=== PATIENT | female | born 1980 | race African-American/Black ===

== ENCOUNTER 2018-04-29 08:57 | Emergency (ER) | payer MEDICAID ==
[~2018-04-29] VITALS: Ht 167.6 cm; Wt 90.7 kg
--- NOTE | 2018-04-29 09:22 | Emergency Room Report ---
History of Present Illness General Chief Complaint: Abdominal Pain Source: Patient Present Illness HPI Patient presents with vomiting and epigastric pain. This began last night. She is vomiting up bile at this time. She also has diarrhea. She last moved her bowels this morning. It was somewhat dark in color but not black. She has a history of GERD. She's not taking medication at home (she tried Prilosec but vomited this). The pain is 10/10 and epigastric radiates somewhat into her chest. She denies any fevers or chills. She feels weak at this time. Pain rated at 10/10. Her last period was in August. She has an implant. No headache, rashes, joint pain - however, she takes advil daily. Never with GI specialist - afraid to go. H/O HTN. 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 Last Menstrual Period: August 2017 Now: No - on control Reviewed Nursing Documentation: PMH: Agreed; PSxH: Agreed Nursing Documentation-PMH Past Medical History: No History, Except For Hx Hypertension: Yes Hx Gastrointestinal Problems: Yes - GERD Review of Systems All Other Systems: negative except mentioned in HPI Physical Exam Vital Signs Date Time Temp Pulse Resp B/P (MAP) Pulse Ox O2 Delivery O2 Flow Rate FiO2 04/29/18 09:01 97.9 60 18 175/98 100 Room Air 97.9 Sp02 EP Interpretation: reviewed, normal General Appearance: well appearing, GCS 15, mild distress Head: normocephalic Eyes: bilateral eye normal inspection, bilateral eye PERRL ENT: moist mucus membranes, other - vomit is yellow bile Neck: supple Respiratory: lungs clear, normal breath sounds Cardiovascular #1: regular rate, rhythm Cardiovascular #2: 2+ radial (R) Gastrointestinal: normal inspection, normal bowel sounds, no mass, non- distended, no guarding, no rebound, tenderness - epigastric, overweight Genitourinary: no CVA tenderness Musculoskeletal: back normal, gait/station normal, normal range of motion Neurologic: alert, oriented x3, grossly normal Psychiatric: mood/affect normal Skin: normal inspection, warm/dry Medical Decision Making Diagnostic Impression: Primary Impression: Epigastric pain Additional Impression: Vomiting Qualified Codes: R11.2 - Nausea with vomiting, unspecified ER Course Patient presents with vomiting and diarrhea and epigastric pain. Differential includes gastritis, gastroenteritis, GERD, pancreatitis amongst others. Patient will be evaluated with labs. Based on exam and history, imaging is not indicated. Patient retreated with IV hydration, Reglan, Benadryl, Pepcid and morphine. Labs with normal WBC and H/H. CMP normal. Normal lipase. UA with ketones and some blood. Patient improved and tolerating oral intake. 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 Discussed need for GI evaluation. Patient stable for outpatient observation and treatment. Laboratory Tests Test 04/29/18 09:07 White Blood Count 7.5 K/UL (4.8-10.8) Red Blood Count 5.00 M/UL (4.20-5.40) Hemoglobin 13.7 G/DL (12.0-16.0) Hematocrit 43.3 % (37.0-47.0) Mean Corpuscular Volume 87 FL (80-99) Mean Corpuscular Hemoglobin 27.5 PG (27.0-31.0) Mean Corpuscular Hemoglobin Concent 31.8 G/DL (32.0-36.0) L Red Cell Distribution Width 12.0 % (11.6-14.8) Platelet Count 258 K/UL (150-450) Mean Platelet Volume 7.2 FL (6.5-10.1) Neutrophils (%) (Auto) 71.5 % (45.0-75.0) Lymphocytes (%) (Auto) 23.5 % (20.0-45.0) Monocytes (%) (Auto) 4.1 % (1.0-10.0) Eosinophils (%) (Auto) 0.1 % (0.0-3.0) Basophils (%) (Auto) 0.8 % (0.0-2.0) Urine Color Pale yellow Urine Appearance Clear Urine pH 6.5 (4.5-8.0) Urine Specific [place] 1.015 (1.005-1.035) Urine Protein Negative (NEGATIVE) Urine Glucose (UA) Negative (NEGATIVE) Urine Ketones 2+ (NEGATIVE) H Urine Occult Blood 4+ (NEGATIVE) H Urine Nitrite Negative (NEGATIVE) Urine Bilirubin Negative (NEGATIVE) Urine Urobilinogen Normal MG/DL (0.0-1.0) Urine Leukocyte Esterase Negative (NEGATIVE) Urine RBC 0-2 /HPF (0 - 2) Urine WBC 0-2 /HPF (0 - 2) Urine Squamous Epithelial Cells Moderate /LPF (NONE/OCC) H Urine Bacteria Few /HPF (NONE) Urine Yeast Few /HPF (NONE) H Urine HCG, Qualitative Negative (NEGATIVE) Sodium Level 137 MMOL/L (136-145) Potassium Level 4.4 MMOL/L (3.5-5.1) Chloride Level 106 MMOL/L (98-107) Carbon Dioxide Level 21 MMOL/L (21-32) Anion Gap 10 mmol/L (5-15) Blood Urea Nitrogen 11 mg/dL (7-18) Creatinine 0.7 MG/DL (0.55-1.30) Estimate Glomerular Filtration Rate > 60 mL/min (>60) Glucose Level 147 MG/DL (74-106) H Calcium Level 8.9 MG/DL (8.5-10.1) Total Bilirubin 0.4 MG/DL (0.2-1.0) Aspartate Amino Transferase (AST) 23 U/L (15-37) Alanine Aminotransferase (ALT) 24 U/L (12-78) Alkaline Phosphatase 85 U/L (46-116) Total Protein 8.5 G/DL (6.4-8.2) H Albumin 3.7 G/DL (3.4-5.0) Globulin 4.8 g/dL Albumin/Globulin Ratio 0.8 (1.0-2.7) L Lipase 111 U/L (73-393) Rhythm Strip Diag. Results EP Interpretation: yes Rhythm: NSR, no PVC's, no ectopy Last Vital Signs Date Time Temp Pulse Resp B/P (MAP) Pulse Ox O2 Delivery O2 Flow Rate FiO2 04/29/18 11:34 97.9 60 18 175/98 100 Room Air 208.2 Status: improved Disposition: HOME, SELF-CARE Condition: Improved Scripts Tramadol Hcl* (ULTRAM*) 50 Mg Tablet 50 MG ORAL Q6H PRN for For Pain, #8 TAB 0 Refills Prov: Reynaldo Saunders M.D. 04/29/18 Ondansetron Odt* (ZOFRAN ODT*) 4 Mg Tab.rapdis 4 MG BC EVERY 8 HOURS, #10 TAB 1 Refill Prov: Reynaldo Saunders M.D. 04/29/18 Reynaldo Saunders M.D. Apr 29, 2018 09:22
[2018-04-29 09:25] VITALS: BP 175/98
[2018-04-29] MEDS ORDERED: Metoclopramide 10mg/2ml Inj IVP ONE (09:30)
[2018-04-29] MEDS ORDERED: DiphenhydrAMINE 50mg/ml Inj IVP ONE (09:30)
[2018-04-29] MEDS ORDERED: Morphine Sulfate 4mg/ml Inj IVP ONE (09:30)
[2018-04-29 09:39] LABS: BASOPHILS % (AUTO) 0.8 % (0.0-2.0); EOSINOPHILS % (AUTO) 0.1 % (0.0-3.0); HEMATOCRIT 43.3 % (37.0-47.0); HEMOGLOBIN 13.7 G/DL (12.0-16.0); LYMPHOCYTES % (AUTO) 23.5 % (20.0-45.0); MEAN CORPUSCULAR VOLUME 87 FL (80-99); MONOCYTES % (AUTO) 4.1 % (1.0-10.0); NEUTROPHILS % (AUTO) 71.5 % (45.0-75.0); PLATELET COUNT 258 K/UL (150-450); WHITE BLOOD COUNT 7.5 K/UL (4.8-10.8)
[2018-04-29 09:43] LABS: ANION GAP 10 mmol/L (5-15); APPEARANCE,URINE CLEAR; BILIRUBIN, URINE NEGATIVE (NEGATIVE); BLOOD UREA NITROGEN 11 mg/dL (7-18); CALCIUM 8.9 MG/DL (8.5-10.1); CARBON DIOXIDE 21 MMOL/L (21-32); CHLORIDE 106 MMOL/L (98-107); COLOR,URINE PALE YELLOW; CREATININE 0.7 MG/DL (0.55-1.30); GLUCOSE, URINE (UA) NEGATIVE (NEGATIVE); KETONES,URINE 2+ (NEGATIVE); LEUKOCYTE ESTERASE ,URINE NEGATIVE (NEGATIVE); NITRITE,URINE NEGATIVE (NEGATIVE); PH,URINE 6.5 (4.5-8.0); POTASSIUM 4.4 MMOL/L (3.5-5.1); PROTEIN,URINE NEGATIVE (NEGATIVE); SODIUM 137 MMOL/L (136-145); UROBILINOGEN,URINE NORMAL MG/DL (0.0-1.0)
[2018-04-29 09:48] LABS: ALANINE AMINOTRANSFERASE 24 U/L (12-78); ALBUMIN 3.7 G/DL (3.4-5.0); ALBUMIN/GLOBULIN RATIO 0.8 (1.0-2.7); ALKALINE PHOSPHATASE 85 U/L (46-116); ASPARTATE AMINO TRANSFERASE 23 U/L (15-37); BILIRUBIN,TOTAL 0.4 MG/DL (0.2-1.0)
[2018-04-29] MEDS ORDERED: ONDANSETRON ODT4 MG BC (11:13)
[2018-04-29] MEDS ORDERED: TRAMADOL HCL50 MG ORAL (11:13)
[2018-04-29 11:34] VITALS: BP 175/98
== END 2018-04-29 11:38 | disposition home or self-care (01) ==
LOC: EMR 09:35
DX: R10.13 Epigastric pain (principal); R11.10 Vomiting, unspecified; R19.7 Diarrhea, unspecified; I10 Essential (primary) hypertension; K21.9 Gastro-esophageal reflux disease without esophagitis; Z88.0 Allergy status to penicillin
CPT/HCPCS: 36415; 80053; 81003; 81025; 83690; 85025; 87086; 96361; 96374; 96375; 99284; J1200; J2270; J2405; J2765; S0028

== ENCOUNTER 2018-05-02 16:57 | Inpatient (IN) | payer MEDICAID ==
[~2018-05-02] VITALS: Ht 167.6 cm; Wt 90.7 kg
[~2018-05-02 16:57] MED LIST: ONDANSETRON ODT4 MG BC; TRAMADOL HCL50 MG ORAL
[2018-05-02 17:29] VITALS: BP 185/91
[2018-05-02] MEDS ORDERED: LORazepam Inj 2mg/ml 1ml IV ONE (17:30)
[2018-05-02] MEDS ORDERED: Morphine Sulfate 4mg/ml Inj IVP ONE ×2 (17:30→19:15)
[2018-05-02] MEDS ORDERED: REGLAN5 MG ORAL (18:20)
[2018-05-02] MEDS ORDERED: OMEPRAZOLE20 M3 ORAL (18:23)
[2018-05-02] MEDS ORDERED: DICYCLOMINE HCL10 MG PO (18:24)
[2018-05-02 18:25] LABS: BASOPHILS % (AUTO) 1.1 % (0.0-2.0); EOSINOPHILS % (AUTO) 0.1 % (0.0-3.0); HEMATOCRIT 35.5 % (37.0-47.0); HEMOGLOBIN 11.7 G/DL (12.0-16.0); LYMPHOCYTES % (AUTO) 28.7 % (20.0-45.0); MEAN CORPUSCULAR VOLUME 85 FL (80-99); NEUTROPHILS % (AUTO) 66.1 % (45.0-75.0); PLATELET COUNT 247 K/UL (150-450); RED BLOOD COUNT 4.19 M/UL (4.20-5.40); RED CELL DISTRIBUTION WIDTH 11.3 % (11.6-14.8); WHITE BLOOD COUNT 7.3 K/UL (4.8-10.8)
[2018-05-02] MEDS ORDERED: ARTHRITIS PAI42.5 GM TP (18:27)
[2018-05-02 18:37] LABS: ANION GAP 15 mmol/L (5-15); BLOOD UREA NITROGEN 6 mg/dL (7-18); CALCIUM 9.1 MG/DL (8.5-10.1); CARBON DIOXIDE 21 MMOL/L (21-32); CHLORIDE 103 MMOL/L (98-107); CREATININE 0.8 MG/DL (0.55-1.30); POTASSIUM 3.9 MMOL/L (3.5-5.1); SODIUM 139 MMOL/L (136-145)
[2018-05-02 18:44] LABS: ALANINE AMINOTRANSFERASE 28 U/L (12-78); ALBUMIN 3.8 G/DL (3.4-5.0); ALBUMIN/GLOBULIN RATIO 0.8 (1.0-2.7); ALKALINE PHOSPHATASE 73 U/L (46-116); ASPARTATE AMINO TRANSFERASE 24 U/L (15-37); BILIRUBIN,TOTAL 0.5 MG/DL (0.2-1.0)
[2018-05-02] MEDS ORDERED: DiphenhydrAMINE 50mg/ml Inj IVP ONE (19:15)
[2018-05-02] MEDS ORDERED: Metoclopramide 10mg/2ml Inj IVP ONE (19:15)
--- NOTE | 2018-05-02 19:21 | Emergency Room Report ---
History of Present Illness General Chief Complaint: Abdominal Pain Source: Patient Present Illness HPI Patient presents with complaints of diffuse abdominal pain cramping Persistent nausea vomiting patient denies any fevers reports that she has had this problem for over a year More recently she has had increased problems patient reports that she was told that she needed to see a GI specialty however she does not want to have upper endoscopy or lower colonoscopies Denies any dysuria frequency denies any diarrhea Pain is 10 out of 10 diffuse cramping in nature There was some discussion regarding possible marijuana use and the cyclical vomiting Allergies: Coded Allergies: PENICILLINS (Verified Allergy, Unknown, 04/29/18) Patient History Past Medical History: see triage record Pertinent Family History: none Last Menstrual Period: nov Now: No Reviewed Nursing Documentation: PMH: Agreed; PSxH: Agreed Nursing Documentation-PMH Past Medical History: No History, Except For Hx Hypertension: Yes Hx Gastrointestinal Problems: Yes - GERD Review of Systems All Other Systems: negative except mentioned in HPI Physical Exam Vital Signs Date Time Temp Pulse Resp B/P (MAP) Pulse Ox O2 Delivery O2 Flow Rate FiO2 05/02/18 17:15 98.7 72 18 185/91 98 Room Air 98.8 Sp02 EP Interpretation: reviewed, normal General Appearance: mild distress - In acute pain Head: normocephalic, atraumatic Eyes: bilateral eye PERRL, bilateral eye EOMI ENT: dry mucus membranes Neck: full range of motion, supple Respiratory: lungs clear, normal breath sounds Cardiovascular #1: regular rate, rhythm, no edema Gastrointestinal: other - Patient is uncomfortable diffusely soft abdomen is palpated, some hyperactive bowel sounds are also noted Genitourinary: no CVA tenderness Musculoskeletal: normal inspection, back normal Neurologic: alert, oriented x3, responsive Skin: normal color, no rash Lymphatic: no adenopathy Medical Decision Making Diagnostic Impression: Primary Impression: Intractable abdominal migraine Additional Impression: Vomiting ER Course With the history exam and presentation, multiple differentials considered, including but not limited to appendicitis, gastritis, cholecystitis, diverticulitis Given the patient's repeat presentation The failed outpatient attempts patient had CT imaging obtained which did not show any acute pathology patient still requiring repeat medications and at this time is admitted for further care Labs Test 05/02/18 17:20 05/02/18 17:50 Urine Opiates Screen Negative (NEGATIVE) Urine Barbiturates Screen Negative (NEGATIVE) Phencyclidine (PCP) Screen Negative (NEGATIVE) Urine Amphetamines Screen Negative (NEGATIVE) Urine Benzodiazepines Screen Negative (NEGATIVE) Urine Cocaine Screen Negative (NEGATIVE) Urine Marijuana (THC) Screen Positive (NEGATIVE) White Blood Count 7.3 K/UL (4.8-10.8) Red Blood Count 4.19 M/UL (4.20-5.40) Hemoglobin 11.7 G/DL (12.0-16.0) Hematocrit 35.5 % (37.0-47.0) Mean Corpuscular Volume 85 FL (80-99) Mean Corpuscular Hemoglobin 28.0 PG (27.0-31.0) Mean Corpuscular Hemoglobin Concent 33.1 G/DL (32.0-36.0) Red Cell Distribution Width 11.3 % (11.6-14.8) Platelet Count 247 K/UL (150-450) Mean Platelet Volume 7.7 FL (6.5-10.1) Neutrophils (%) (Auto) 66.1 % (45.0-75.0) Lymphocytes (%) (Auto) 28.7 % (20.0-45.0) Monocytes (%) (Auto) 4.0 % (1.0-10.0) Eosinophils (%) (Auto) 0.1 % (0.0-3.0) Basophils (%) (Auto) 1.1 % (0.0-2.0) Sodium Level 139 MMOL/L (136-145) Potassium Level 3.9 MMOL/L (3.5-5.1) Chloride Level 103 MMOL/L (98-107) Carbon Dioxide Level 21 MMOL/L (21-32) Anion Gap 15 mmol/L (5-15) Blood Urea Nitrogen 6 mg/dL (7-18) Creatinine 0.8 MG/DL (0.55-1.30) Estimat Glomerular Filtration Rate > 60 mL/min (>60) Glucose Level 111 MG/DL (74-106) Calcium Level 9.1 MG/DL (8.5-10.1) Total Bilirubin 0.5 MG/DL (0.2-1.0) Aspartate Amino Transf (AST/SGOT) 24 U/L (15-37) Alanine Aminotransferase (ALT/SGPT) 28 U/L (12-78) Alkaline Phosphatase 73 U/L (46-116) Total Protein 8.3 G/DL (6.4-8.2) Albumin 3.8 G/DL (3.4-5.0) Globulin 4.5 g/dL Albumin/Globulin Ratio 0.8 (1.0-2.7) Lipase 89 U/L (73-393) CT/MRI/US Diagnostic Results CT/MRI/US Diagnostic Results : Impression CT abdomen pelvis: No obvious acute disease Last Vital Signs Date Time Temp Pulse Resp B/P (MAP) Pulse Ox O2 Delivery O2 Flow Rate FiO2 05/02/18 18:19 98.8 05/02/18 17:29 78 18 185/91 98 Room Air Status: improved Disposition: ADMITTED INPATIENT Condition: Serious Referrals: NOT CHOSEN IPA/,REFERRING (PCP) Chetan Vizcarra DO May 02, 2018 19:21
[2018-05-02 19:40] VITALS: BP 155/81
[2018-05-02 20:00] VITALS: BP 170/97
[2018-05-02] MEDS ORDERED: Mylanta II UD 30ml ORAL PRN (20:45)
[2018-05-02] MEDS ORDERED: LORazepam Inj 2mg/ml 1ml IV PRN (20:45)
[2018-05-02] MEDS ORDERED: Miralax 17gm pkt ORAL PRN (20:45)
[2018-05-02] MEDS ORDERED: Promethazine HCl 25 MG in NS 55 ML IV PRN (20:45)
[2018-05-02] MEDS ORDERED: Morphine Sulfate 2mg/ml Inj IVP PRN (20:45)
[2018-05-02] MEDS ORDERED: Nitroglycerin Subl 0.4mg tab SL PRN (20:45)
[2018-05-02] MEDS ORDERED: Promethazine HCl 12.5 MG in NS 55 ML IV PRN (20:45)
[2018-05-02] MEDS ORDERED: Metoclopramide 10mg/2ml Inj IVP PRN (20:45)
[2018-05-02] MEDS: D5 1/2NS 1,000 ML IV SCH (21:49)
[2018-05-02] MEDS: Heparin 5000 units/ml inj SUBQ SCH (21:54)
[2018-05-02] MEDS ORDERED: NORMODYNE100 MG ORAL (22:32)
[2018-05-03] VITALS: BP 162/88
[2018-05-03 04:00] VITALS: BP 155/91
[2018-05-03 05:31] LABS: BASOPHILS % (AUTO) 0.9 % (0.0-2.0); EOSINOPHILS % (AUTO) 0.4 % (0.0-3.0); HEMATOCRIT 33.6 % (37.0-47.0); HEMOGLOBIN 11.2 G/DL (12.0-16.0); LYMPHOCYTES % (AUTO) 45.3 % (20.0-45.0); MEAN CORPUSCULAR VOLUME 85 FL (80-99); MONOCYTES % (AUTO) 6.4 % (1.0-10.0); NEUTROPHILS % (AUTO) 46.9 % (45.0-75.0); PLATELET COUNT 229 K/UL (150-450); RED BLOOD COUNT 3.97 M/UL (4.20-5.40); RED CELL DISTRIBUTION WIDTH 11.3 % (11.6-14.8); WHITE BLOOD COUNT 8.3 K/UL (4.8-10.8)
[2018-05-03 06:11] LABS: ALANINE AMINOTRANSFERASE 25 U/L (12-78); ALBUMIN 3.3 G/DL (3.4-5.0); ALBUMIN/GLOBULIN RATIO 0.8 (1.0-2.7); ALKALINE PHOSPHATASE 66 U/L (46-116); AMYLASE 33 U/L (25-115); ANION GAP 12 mmol/L (5-15); ASPARTATE AMINO TRANSFERASE 13 U/L (15-37); BILIRUBIN,TOTAL 0.4 MG/DL (0.2-1.0); BLOOD UREA NITROGEN 7 mg/dL (7-18); CALCIUM 8.3 MG/DL (8.5-10.1); CARBON DIOXIDE 24 MMOL/L (21-32); CHLORIDE 103 MMOL/L (98-107); CREATININE 0.9 MG/DL (0.55-1.30); SODIUM 138 MMOL/L (136-145)
[2018-05-03 08:00] VITALS: BP 138/89
[2018-05-03] MEDS: Heparin 5000 units/ml inj SUBQ SCH (08:26)
[2018-05-03] MEDS ORDERED: Pantoprazole Inj IV SCH (09:00)
--- NOTE | 2018-05-03 09:10 | Diagnostic Imaging Report ---
Indication: Pain, nausea, vomiting Technique: Noncontrast CT of the abdomen and pelvis utilizing automated exposure control. Axial, sagittal and coronal reformats presented. CT dose: Total DLP 941.15 mGycm; CTDI vol 19.07 mGy Comparison: None Findings: Please note that evaluation of the abdominal and pelvic viscera and vascular structures is limited without the use of intravenous and oral contrast. Within these limitations the following observations are made: Imaged lung bases without evidence of focal consolidation, pleural effusion or pneumothorax. Heart size within normal limits. No pericardial effusion. There is hypoattenuation of the blood pool relative to the intraventricular septum suggesting anemia. Liver is mildly enlarged with the right hepatic lobe measuring approximately 21 cm in craniocaudal length. Liver contour is smooth. Gallbladder is unremarkable. Spleen normal in size. Adrenal glands and pancreas grossly unremarkable. Kidneys are symmetric in size. No urinary tract stone or hydronephrosis bilaterally. Apparent mild thickening of the bladder wall most likely related to underdistention. Uterus and adnexa are grossly unremarkable. No free intraperitoneal air. There is trace fluid in the cul-de-sac which is likely physiologic. No bowel obstruction. No appreciable focal bowel wall thickening however exam limited by lack of contrast. Appendix not definitively identified. No focal inflammatory changes in the right lower quadrant. There is a small defect in the musculature of the right anterolateral lower abdominal wall (series 3 image #81) with a small associated herniation of fat. Question small incisional hernia. Abdominal aorta is normal in caliber. No significant atherosclerotic disease. Very mild degenerative change of the spine. No acute osseous abnormality appreciated. IMPRESSION: Limited exam without intravenous and oral contrast. Within these limitations: No definite evidence of acute abdominal pathology. * Hepatomegaly. * Trace fluid in the cul-de-sac likely physiologic. * Apparent mild thickening of the bladder wall most likely related to underdistention. Correlate with urinalysis to exclude the less likely possibility of a cystitis. * Findings suggestive of anemia. Correlate with CBC. Additional incidental findings as above. The CT scanner at [facility] is accredited by the [employer] and the scans are performed using protocols designed to limit radiation exposure to as low as reasonably achievable to attain images of sufficient resolution adequate for diagnostic evaluation.
[2018-05-03] MEDS: D5 1/2NS 1,000 ML IV SCH (10:04)
[2018-05-03] MEDS ORDERED: D5 1/2NS 1000ml IV ONE (10:18)
--- NOTE | 2018-05-03 11:03 | GI Initial Consult Note ---
History of Present Illness General Date patient seen: May 03, 2018 Time patient seen: 10:59 Reason for Hospitalization: Abdominal Pain Referring physician: MYNOR HUNTER Reason for Consultation: CYCLIC VOMITING Present Illness HPI Persistent nausea vomiting patient denies any fevers reports that she has had this problem for over a year More recently she has had increased problems patient reports that she was told that she needed to see a GI specialty however she does not want to have upper endoscopy or lower colonoscopies Denies any dysuria frequency denies any diarrhea Pain is 10 out of 10 diffuse cramping in nature There was some discussion regarding possible marijuana use and the cyclical vomiting GI consulted for persistent vomiting. Pt seen, awake A&Ox4 NAD with no active s/sx N/V/D. Last PO intake x 4 days. Has nausea, but no recent emesis. Epigastric pain, stated when she did vomiting had specs of blood. Patient is a chronic marijuana daily user for over 15+ years. Had multiple incidents where she felt the same. Denies any tobacco or drug use. No history of endoscopy / colonoscopy. Home Meds Active Scripts Tramadol Hcl* (ULTRAM*) 50 Mg Tablet, 50 MG ORAL Q6H PRN for For Pain, #8 TAB 0 Refills Prov:Reynaldo Saunders M.D. 04/29/18 Ondansetron Odt* (ZOFRAN ODT*) 4 Mg Tab.rapdis, 4 MG BC EVERY 8 HOURS, #10 TAB 1 Refill Prov:Reynaldo Saunders M.D. 04/29/18 Reported Medications Labetalol HCl (Labetalol HCl) 100 Mg Tablet, 100 MG ORAL EVERY 12 HOURS, TAB 05/02/18 Omeprazole (OMEPRAZOLE) 20 Mg Tablet.dr, 0 ORAL DAILY, TAB 05/02/18 Metoclopramide Hcl* (REGLAN*) 5 Mg Tablet, 0 ORAL EVERY 4-6 HOURS, TAB 05/02/18 Discontinued Reported Medications Capsaicin (ARTHRITIS PAIN RELIEF) 42.5 Gm Cream..g., 0 TP, GM 05/02/18 Dicyclomine Hcl* (DICYCLOMINE HCL*) 10 Mg Capsule, 0 PO QID, CAP 05/02/18 Med list reviewed/reconciled: Yes Allergies: Coded Allergies: PENICILLINS (Verified Allergy, Unknown, 04/29/18) Patient History History Provided By: Patient, Medical Record PMH Narrative Past Medical History: see triage record Pertinent Family History: none Last Menstrual Period: nov Now: No Reviewed Nursing Documentation: PMH: Agreed; PSxH: Agreed Nursing Documentation-PMH Past Medical History: No History, Except For Hx Hypertension: Yes Hx Gastrointestinal Problems: Yes - GERD Social History: Reports: drug use Review of Systems All Other Systems: negative except mentioned in HPI Physical Exam Vital Signs Date Time Temp Pulse Resp B/P (MAP) Pulse Ox O2 Delivery O2 Flow Rate FiO2 05/02/18 17:15 98.7 72 18 185/91 98 Room Air 98.8 Sp02 EP Interpretation: reviewed, normal Labs Laboratory Tests Test 05/02/18 17:20 05/02/18 17:50 05/03/18 04:50 Urine Opiates Screen Negative (NEGATIVE) Urine Barbiturates Screen Negative (NEGATIVE) Phencyclidine (PCP) Screen Negative (NEGATIVE) Urine Amphetamines Screen Negative (NEGATIVE) Urine Benzodiazepines Screen Negative (NEGATIVE) Urine Cocaine Screen Negative (NEGATIVE) Urine Marijuana (THC) Screen Positive (NEGATIVE) H White Blood Count 7.3 K/UL (4.8-10.8) 8.3 K/UL (4.8-10.8) Red Blood Count 4.19 M/UL (4.20-5.40) L 3.97 M/UL (4.20-5.40) L Hemoglobin 11.7 G/DL (12.0-16.0) L 11.2 G/DL (12.0-16.0) L Hematocrit 35.5 % (37.0-47.0) L 33.6 % (37.0-47.0) L Mean Corpuscular Volume 85 FL (80-99) 85 FL (80-99) Mean Corpuscular Hemoglobin 28.0 PG (27.0-31.0) 28.1 PG (27.0-31.0) Mean Corpuscular Hemoglobin Concent 33.1 G/DL (32.0-36.0) 33.2 G/DL (32.0-36.0) Red Cell Distribution Width 11.3 % (11.6-14.8) L 11.3 % (11.6-14.8) L Platelet Count 247 K/UL (150-450) 229 K/UL (150-450) Mean Platelet Volume 7.7 FL (6.5-10.1) 6.9 FL (6.5-10.1) Neutrophils (%) (Auto) 66.1 % (45.0-75.0) 46.9 % (45.0-75.0) Lymphocytes (%) (Auto) 28.7 % (20.0-45.0) 45.3 % (20.0-45.0) H Monocytes (%) (Auto) 4.0 % (1.0-10.0) 6.4 % (1.0-10.0) Eosinophils (%) (Auto) 0.1 % (0.0-3.0) 0.4 % (0.0-3.0) Basophils (%) (Auto) 1.1 % (0.0-2.0) 0.9 % (0.0-2.0) Sodium Level 139 MMOL/L (136-145) 138 MMOL/L (136-145) Potassium Level 3.9 MMOL/L (3.5-5.1) 3.0 MMOL/L (3.5-5.1) L Chloride Level 103 MMOL/L (98-107) 103 MMOL/L (98-107) Carbon Dioxide Level 21 MMOL/L (21-32) 24 MMOL/L (21-32) Anion Gap 15 mmol/L (5-15) 12 mmol/L (5-15) Blood Urea Nitrogen 6 mg/dL (7-18) L 7 mg/dL (7-18) Creatinine 0.8 MG/DL (0.55-1.30) 0.9 MG/DL (0.55-1.30) Estimat Glomerular Filtration Rate > 60 mL/min (>60) > 60 mL/min (>60) Glucose Level 111 MG/DL (74-106) H 107 MG/DL (74-106) H Calcium Level 9.1 MG/DL (8.5-10.1) 8.3 MG/DL (8.5-10.1) L Total Bilirubin 0.5 MG/DL (0.2-1.0) 0.4 MG/DL (0.2-1.0) Aspartate Amino Transf (AST/SGOT) 24 U/L (15-37) 13 U/L (15-37) L Alanine Aminotransferase (ALT/SGPT) 28 U/L (12-78) 25 U/L (12-78) Alkaline Phosphatase 73 U/L (46-116) 66 U/L (46-116) Total Protein 8.3 G/DL (6.4-8.2) H 7.2 G/DL (6.4-8.2) Albumin 3.8 G/DL (3.4-5.0) 3.3 G/DL (3.4-5.0) L Globulin 4.5 g/dL 3.9 g/dL Albumin/Globulin Ratio 0.8 (1.0-2.7) L 0.8 (1.0-2.7) L Lipase 89 U/L (73-393) Activated Partial Thromboplast Time 26 SEC (23-33) Amylase Level 33 U/L (25-115) General Appearance: well appearing, no apparent distress, alert, obese Head: normocephalic EENT: PERRL/EOMI, normal ENT inspection Neck: supple Respiratory: normal breath sounds, no respiratory distress Cardiovascular: normal rate Gastrointestinal: normal inspection, non tender, soft, normal bowel sounds, non -distended Rectal: deferred Genitourinary: no CVA tenderness Musculoskeletal: normal inspection, back normal Neurologic: normal inspection, alert, oriented x3, responsive Psychiatric: normal inspection, judgement/insight normal, memory normal Skin: normal inspection, normal color, no rash, warm/dry, palpation normal, well hydrated Lymphatic: normal inspection, no adenopathy Current Medications Current Medications Medications (Trade) Dose Ordered Sig/Sonia Route PRN Reason Start Time Stop Time Status Last Admin Dose Admin Acetaminophen (Tylenol) 650 mg Q4H PRN ORAL fever 05/02/18 20:45 06/01/18 20:44 Al Hydroxide/Mg Hydroxide (Mylanta II) 30 ml Q6H PRN ORAL dyspepsia 05/02/18 20:45 06/01/18 20:44 05/03/18 05:02 Clonidine HCl (Catapres Tab) 0.1 mg Q6H PRN ORAL For High Blood Pressure 05/02/18 22:45 06/01/18 22:44 05/03/18 01:07 Dextrose (Dextrose 50%) 25 ml STAT PRN IV Hypoglycemia 05/02/18 20:45 06/01/18 20:44 Dextrose (Dextrose 50%) 50 ml STAT PRN IV Hypoglycemia 05/02/18 21:00 06/01/18 20:59 Dextrose/Sodium Chloride 1,000 ml @ 75 mls/hr [id number] IV 05/02/18 20:44 06/01/18 20:43 05/02/18 21:49 Diphenhydramine HCl (Benadryl) 25 mg Q6H PRN ORAL Itching/Pruritis 05/02/18 20:45 06/01/18 20:44 Heparin Sodium (Porcine) (Heparin 5000 units/ml) 5,000 units EVERY 12 HOURS SUBQ 05/02/18 21:00 06/01/18 20:59 05/03/18 08:26 Labetalol HCl (Normodyne) 100 mg EVERY 12 HOURS ORAL 05/02/18 22:45 06/01/18 22:44 05/03/18 08:18 Lorazepam (Ativan 2mg/ml 1ml) 1 mg Q4H PRN IV agitation 05/02/18 20:45 05/09/18 20:44 Metoclopramide HCl (Reglan) 10 mg Q6H PRN IVP severe nausea 05/02/18 20:45 06/01/18 20:44 Morphine Sulfate (Morphine Sulfate) 2 mg Q4H PRN IVP severe Pain (Pain Scale 7-10) 05/02/18 20:45 05/09/18 20:44 Nitroglycerin (Ntg) 0.4 mg Q5M X 3 DOSES PRN SL Prn Chest Pain 05/02/18 20:45 06/01/18 20:44 Ondansetron HCl (Zofran) 4 mg Q6H PRN IVP Nausea & Vomiting 05/02/18 20:45 06/01/18 20:44 05/03/18 08:16 Pantoprazole (Protonix) 40 mg DAILY IV 05/03/18 09:00 06/02/18 08:59 05/03/18 08:16 Polyethylene Glycol (Miralax) 17 gm HSPRN PRN ORAL Constipation 05/02/18 20:45 06/01/18 20:44 Potassium Chloride 100 ml @ 100 mls/hr Q1H IVPB 05/03/18 08:30 05/03/18 12:29 05/03/18 08:16 Promethazine HCl (Phenergan) 12.5 mg Q6H PRN IM refractory nausea and vomiting 05/02/18 22:15 06/01/18 22:14 Temazepam (Restoril) 15 mg HSPRN PRN ORAL Insomnia 05/02/18 20:45 05/09/18 20:44 GI: Plan Problems: (1) Cyclic vomiting syndrome (2) Intractable abdominal migraine (3) Epigastric pain (4) Vomiting Plan negative CT anemia symptomatic treatment advance to regular diet marijuana cessation education given, pt had acknowledged anemia work up ppi zofran prn fu labs will consider EGD if patient cannot tolerate lunch and has persistent vomiting. Discussed with Dr. Smith. Thank you for this patient referral, we will follow. The patient was seen and examined at bedside and all new and available data was reviewed in the patients chart. I agree with the above findings, impression and plan. (Patient seen earlier today. Signature stamp does not reflect patient encounter time.). - MD Paulina SolorzanoBanner Baywood Medical CenterSebas HORSE RIDING COACH OR INSTRUCTOR May 03, 2018 11:03
[2018-05-03 12:00] VITALS: BP 149/99
--- NOTE | 2018-05-03 13:05 | Consultation ---
History of Present Illness General Date patient seen: May 03, 2018 Chief Complaint: Abdominal Pain Referring physician: MYNOR HUNTER Reason for Consultation: CYCLIC VOMITING Present Illness HPI 37 year old female presented with persistent N/V after smoking pot. Pt has been smoking cannabis for a few years and this time she started having Nausea and vomiting. Allergies: Coded Allergies: PENICILLINS (Verified Allergy, Unknown, 04/29/18) Medication History Scheduled Labetalol HCl (Labetalol HCl), 100 MG ORAL EVERY 12 HOURS, (Reported) Metoclopramide Hcl* (Reglan*), 0 ORAL EVERY 4-6 HOURS, (Reported) Omeprazole (Omeprazole), 0 ORAL DAILY, (Reported) Ondansetron Odt* (Zofran Odt*), 4 MG BC EVERY 8 HOURS Scheduled PRN Tramadol Hcl* (Ultram*), 50 MG ORAL Q6H PRN for For Pain Discontinued Medications Capsaicin (Arthritis Pain Relief), 0 TP, (Reported) Discontinued Reason: Therapy completed Dicyclomine Hcl* (Dicyclomine Hcl*), 0 PO QID, (Reported) Discontinued Reason: Therapy completed Patient History Healthcare decision maker Resuscitation status Full Code Advanced Directive on File No Past Medical/Surgical History Past Medical/Surgical History: (1) Cyclic vomiting syndrome Review of Systems All Other Systems: negative except mentioned in HPI Physical Exam General Appearance: WD/WN, no apparent distress Lines, tubes and drains: peripheral HEENT: normocephalic, atraumatic Neck: non-tender, normal alignment Respiratory/Chest: chest wall non-tender, lungs clear Breasts: no masses Cardiovascular/Chest: normal peripheral pulses Abdomen: normal bowel sounds Genitourinary/Rectal: normal genital exam Extremities: normal range of motion Last 24 Hour Vital Signs Date Time Temp Pulse Resp B/P (MAP) Pulse Ox O2 Delivery O2 Flow Rate FiO2 05/03/18 12:00 97.2 63 21 149/99 (116) 95 97.2 05/03/18 09:00 Room Air 05/03/18 08:18 65 138/89 05/03/18 08:00 97.9 64 22 138/89 (105) 100 97.9 05/03/18 08:00 97.9 64 22 138/89 (105) 100 97.9 05/03/18 04:00 98.3 59 19 155/91 (112) 100 98.3 7/23/18 01:07 162/88 05/03/18 00:00 98.3 66 19 162/88 (112) 100 98.3 05/02/18 22:59 52 170/97 05/02/18 21:00 Room Air 05/02/18 20:00 97.8 52 19 170/97 (121) 99 97.8 05/02/18 19:40 98.8 61 18 155/81 97 Room Air 98.8 05/02/18 19:40 98.8 61 18 155/81 97 Room Air 209.8 05/02/18 19:26 98.8 05/02/18 18:19 98.8 05/02/18 17:49 98.8 05/02/18 17:29 98.8 78 18 185/91 98 Room Air 98.8 05/02/18 17:15 98.7 72 18 185/91 98 Room Air 98.8 Intake and Output 05/02/18 05/03/18 19:00 07:00 Intake Total 675 ml Output Total 0 ml Balance 0 ml 675 ml Intake IV Total 675 ml Output Urine Total 0 ml # Voids 2 Laboratory Tests Test 05/02/18 17:20 05/02/18 17:50 05/03/18 04:50 Urine Opiates Screen Negative (NEGATIVE) Urine Barbiturates Screen Negative (NEGATIVE) Phencyclidine (PCP) Screen Negative (NEGATIVE) Urine Amphetamines Screen Negative (NEGATIVE) Urine Benzodiazepines Screen Negative (NEGATIVE) Urine Cocaine Screen Negative (NEGATIVE) Urine Marijuana (THC) Screen Positive (NEGATIVE) H White Blood Count 7.3 K/UL (4.8-10.8) 8.3 K/UL (4.8-10.8) Red Blood Count 4.19 M/UL (4.20-5.40) L 3.97 M/UL (4.20-5.40) L Hemoglobin 11.7 G/DL (12.0-16.0) L 11.2 G/DL (12.0-16.0) L Hematocrit 35.5 % (37.0-47.0) L 33.6 % (37.0-47.0) L Mean Corpuscular Volume 85 FL (80-99) 85 FL (80-99) Mean Corpuscular Hemoglobin 28.0 PG (27.0-31.0) 28.1 PG (27.0-31.0) Mean Corpuscular Hemoglobin Concent 33.1 G/DL (32.0-36.0) 33.2 G/DL (32.0-36.0) Red Cell Distribution Width 11.3 % (11.6-14.8) L 11.3 % (11.6-14.8) L Platelet Count 247 K/UL (150-450) 229 K/UL (150-450) Mean Platelet Volume 7.7 FL (6.5-10.1) 6.9 FL (6.5-10.1) Neutrophils (%) (Auto) 66.1 % (45.0-75.0) 46.9 % (45.0-75.0) Lymphocytes (%) (Auto) 28.7 % (20.0-45.0) 45.3 % (20.0-45.0) H Monocytes (%) (Auto) 4.0 % (1.0-10.0) 6.4 % (1.0-10.0) Eosinophils (%) (Auto) 0.1 % (0.0-3.0) 0.4 % (0.0-3.0) Basophils (%) (Auto) 1.1 % (0.0-2.0) 0.9 % (0.0-2.0) Sodium Level 139 MMOL/L (136-145) 138 MMOL/L (136-145) Potassium Level 3.9 MMOL/L (3.5-5.1) 3.0 MMOL/L (3.5-5.1) L Chloride Level 103 MMOL/L (98-107) 103 MMOL/L (98-107) Carbon Dioxide Level 21 MMOL/L (21-32) 24 MMOL/L (21-32) Anion Gap 15 mmol/L (5-15) 12 mmol/L (5-15) Blood Urea Nitrogen 6 mg/dL (7-18) L 7 mg/dL (7-18) Creatinine 0.8 MG/DL (0.55-1.30) 0.9 MG/DL (0.55-1.30) Estimat Glomerular Filtration Rate > 60 mL/min (>60) > 60 mL/min (>60) Glucose Level 111 MG/DL (74-106) H 107 MG/DL (74-106) H Calcium Level 9.1 MG/DL (8.5-10.1) 8.3 MG/DL (8.5-10.1) L Total Bilirubin 0.5 MG/DL (0.2-1.0) 0.4 MG/DL (0.2-1.0) Aspartate Amino Transf (AST/SGOT) 24 U/L (15-37) 13 U/L (15-37) L Alanine Aminotransferase (ALT/SGPT) 28 U/L (12-78) 25 U/L (12-78) Alkaline Phosphatase 73 U/L (46-116) 66 U/L (46-116) Total Protein 8.3 G/DL (6.4-8.2) H 7.2 G/DL (6.4-8.2) Albumin 3.8 G/DL (3.4-5.0) 3.3 G/DL (3.4-5.0) L Globulin 4.5 g/dL 3.9 g/dL Albumin/Globulin Ratio 0.8 (1.0-2.7) L 0.8 (1.0-2.7) L Lipase 89 U/L (73-393) Activated Partial Thromboplast Time 26 SEC (23-33) Amylase Level 33 U/L (25-115) Height (Feet): 5 Height (Inches): 6.00 Weight (Pounds): 200 Medications Current Medications Medications (Trade) Dose Ordered Sig/Sonia Route PRN Reason Start Time Stop Time Status Last Admin Dose Admin Acetaminophen (Tylenol) 650 mg Q4H PRN ORAL fever 05/02/18 20:45 06/01/18 20:44 Al Hydroxide/Mg Hydroxide (Mylanta II) 30 ml Q6H PRN ORAL dyspepsia 05/02/18 20:45 06/01/18 20:44 05/03/18 05:02 Clonidine HCl (Catapres Tab) 0.1 mg Q6H PRN ORAL For High Blood Pressure 05/02/18 22:45 06/01/18 22:44 05/03/18 01:07 Dextrose (Dextrose 50%) 25 ml STAT PRN IV Hypoglycemia 05/02/18 20:45 06/01/18 20:44 Dextrose (Dextrose 50%) 50 ml STAT PRN IV Hypoglycemia 05/02/18 21:00 06/01/18 20:59 Dextrose/Sodium Chloride 1,000 ml @ 75 mls/hr [id number] IV 05/02/18 20:44 06/01/18 20:43 05/02/18 21:49 Diphenhydramine HCl (Benadryl) 25 mg Q6H PRN ORAL Itching/Pruritis 05/02/18 20:45 06/01/18 20:44 Heparin Sodium (Porcine) (Heparin 5000 units/ml) 5,000 units EVERY 12 HOURS SUBQ 05/02/18 21:00 06/01/18 20:59 05/03/18 08:26 Labetalol HCl (Normodyne) 100 mg EVERY 12 HOURS ORAL 05/02/18 22:45 06/01/18 22:44 05/03/18 08:18 Lorazepam (Ativan 2mg/ml 1ml) 1 mg Q4H PRN IV agitation 05/02/18 20:45 05/09/18 20:44 Metoclopramide HCl (Reglan) 10 mg Q6H PRN IVP severe nausea 05/02/18 20:45 06/01/18 20:44 Morphine Sulfate (Morphine Sulfate) 2 mg Q4H PRN IVP severe Pain (Pain Scale 7-10) 05/02/18 20:45 05/09/18 20:44 Nitroglycerin (Ntg) 0.4 mg Q5M X 3 DOSES PRN SL Prn Chest Pain 05/02/18 20:45 06/01/18 20:44 Ondansetron HCl (Zofran) 4 mg Q6H PRN IVP Nausea & Vomiting 05/02/18 20:45 06/01/18 20:44 05/03/18 08:16 Pantoprazole (Protonix) 40 mg DAILY IV 05/03/18 09:00 06/02/18 08:59 05/03/18 08:16 Polyethylene Glycol (Miralax) 17 gm HSPRN PRN ORAL Constipation 05/02/18 20:45 06/01/18 20:44 Promethazine HCl (Phenergan) 12.5 mg Q6H PRN IM refractory nausea and vomiting 05/02/18 22:15 06/01/18 22:14 Temazepam (Restoril) 15 mg HSPRN PRN ORAL Insomnia 05/02/18 20:45 05/09/18 20:44 Assessment/Plan Problem List: (1) Intractable nausea and vomiting ICD Codes: R11.2 - Nausea with vomiting, unspecified SNOMED: 298390099 Assessment/Plan symptomatic treatment iv fluids GI evaluation NPO Yuly Blackman MD May 03, 2018 13:05
--- NOTE | 2018-05-03 16:00 | Diagnostic Imaging Report ---
Indication: Abdominal pain Technique: US ABD Complete Comparison: CT of the abdomen and pelvis 05/02/2018 Findings: Imaged portions of the pancreatic head grossly unremarkable. The body and tail are not seen. Liver contour is smooth. Hepatic echogenicity is homogeneous. No focal hepatic mass lesion is appreciated sonographically. Liver is mildly enlarged with the right hepatic lobe measuring 19 cm in length. Portal vein is patent. Gallbladder is unremarkable without evidence of cholelithiasis, gallbladder sludge, gallbladder wall thickening or pericholecystic fluid. Sonographic Tsai sign reported as negative. No intrahepatic or extrahepatic biliary duct dilatation. The common bile duct measures 3- 4 mm in diameter. Kidneys are symmetric in size and demonstrate normal parenchymal echogenicity. There is no hydronephrosis or sonographically appreciable renal stone. Spleen is normal in size. Imaged portions of the abdominal aorta and IVC normal in caliber. There is no ascites. IMPRESSION: Mild hepatomegaly. Otherwise, unremarkable abdominal sonogram.
--- NOTE | 2018-05-03 22:00 | History and Physical Report ---
DATE OF ADMISSION: 05/02/2018 CONSULTANTS: 1. Deng Smith M.D. 2. Lori Johnson M.D. 3. Yuly Blackman M.D. CHIEF COMPLAINT: Intractable nausea and vomiting. BRIEF HISTORY: The patient is a 37-year-old female, who lives at home, yesterday after smoking pot, became very nauseated, vomiting, could not stop, came to [facility], diagnosed with the above, intractable nausea and vomiting, possible marijuana-induced, and admitted to medical floor for further treatment. Currently, feeling much better. No nausea anymore. Ate lunch okay, wants to go home. REVIEW OF SYSTEMS: No chest pain. Slight nausea and vomiting upon admission. No complaint otherwise. PAST MEDICAL HISTORY: Nothing. PAST SURGICAL HISTORY: D and C x2. Appendectomy. ALLERGIES: Penicillin. SOCIAL HISTORY: No smoking of cigarettes. No alcohol. Positive marijuana use. PHYSICAL EXAMINATION: GENERAL: Calm in bed, oriented x3, no acute distress. VITAL SIGNS: Temperature is 97 degrees, pulse 63, respirations 21, and blood pressure 149/99. CARDIOVASCULAR: No murmur. LUNGS: Distant and clear. ABDOMEN: Bowel sound positive. Nontender. Nondistended. EXTREMITIES: No cyanosis or edema. NEUROLOGIC: Cranial nerves II through XII are grossly intact. Deep tendon reflex 2+/4. Muscle strength 5/5. LABORATORY AND DIAGNOSTIC DATA: Hemoglobin 11.2, otherwise CBC is normal. BMP shows potassium 3.0, glucose 107, AST 13 and albumin 3.3, otherwise normal. PTT is 26. Urine toxicology positive for marijuana. MEDICATIONS: Protonix, Normodyne, Catapres, Phenergan, Tylenol, morphine, MiraLAX, Zofran, Benadryl, nitroglycerin, and Reglan. ASSESSMENT: 1. Intractable nausea and vomiting, possible marijuana-induced. 2. Anemia. 3. Elevated blood pressure. PLAN: 1. Blood pressure and pain control. 2. Antiemetics p.r.n. 3. We will discharge the patient shortly if cleared by all. 4. We will continue to follow the patient medically. Vikas Hamm D.O. DR: LEIDA JOB#: [id number] CC:
--- NOTE | 2018-05-04 10:34 | Discharge Summary ---
Discharge Summary Discharge Summary _ DATE OF ADMISSION: 05/02/2018 DATE OF DISCHARGE: 05/03/2018 REASON FOR ADMISSION: 37 years old female from home, presented after smoking pot with nausea, vomiting and abdominal pain. Upon evaluation blood pressure was elevated 185/91. Laboratory workup revealed evidence of mild anemia with hemoglobin 11.7 and hematocrit 35.5. No leukocytosis. Urine toxicology screen was positive for marijuana. Electrolytes , renal parameters , LFT and lipase were all stable. CT of the abdomen and pelvis revealed evidence of hepatomegaly, no other significant findings. Patient admitted with diagnoses of intractable nausea and vomiting, anemia, hypertension. CONSULTANTS: pulmonary Dr. Blackman GI specialist [facility] COURSE: Patient admitted to medical surgical floor. Patient started on the IV fluids. Patient initially kept nothing by mouth. Symptomatic treatment provided. Pain management was addressed, pain was controlled. DVT prophylaxis provided . GI evaluation was requested. GI specialist recommended symptomatic treatment. Antiemetics provided as needed. Diet was started with clear liquids and advanced to regular as tolerated. Patient was counseled on marijuana cessation. Anemia workup was ordered . Patient started on PPI. GI specialist stated to consider EGD only if patient would not be able to tolerate lunch and had persistent vomiting. However patient was able to tolerate diet . CT of the abdomen and pelvis and abdominal ultrasound were both unremarkable. CT of the abdomen and pelvis revealed hepatomegaly Abdominal ultrasound revealed mild hepatomegaly , otherwise unremarkable. Blood pressure was managed with beta rowena and remained stable. Patient was stable for discharge home Due to rapid and unexpected improvement in patient's condition, the patient was discharged in one day. FINAL DIAGNOSES: Cyclic vomiting syndrome Intractable abdominal migraine Intractable nausea with vomiting Elevated blood pressure Anemia DISCHARGE MEDICATIONS: See Medication Reconciliation list. DISCHARGE INSTRUCTIONS: Patient was discharged home. Follow up with primary care provider . I have been assigned to dictate discharge summary for this account. I was not involved in the patient's management. Eun Hernandez NP May 04, 2018 10:34
== END 2018-05-03 15:23 | disposition home or self-care (01) | DRG 54 ==
LOC: EMR 17:47 → EDBEDREQ 18:17 → 3E 18:33
DX: G43.A1 Cyclical vomiting, in migraine, intractable (principal); D64.9 Anemia, unspecified; K21.9 Gastro-esophageal reflux disease without esophagitis; T40.7X5A Adverse effect of cannabis (derivatives), initial encounter; Z88.0 Allergy status to penicillin; R03.0 Elevated blood-pressure reading, without diagnosis of hypertension
CPT/HCPCS: 36415; 74176; 76700; 80053; 80307; 82150; 83690; 85025; 85730; J2405; J2765; J8499

== ENCOUNTER 2018-05-07 09:57 | Emergency (ER) | payer MEDICAID ==
[~2018-05-07] VITALS: Ht 167.6 cm; Wt 90.7 kg
[~2018-05-07 09:57] MED LIST changes: +ARTHRITIS PAI42.5 GM TP; +DICYCLOMINE HCL10 MG PO; +NORMODYNE100 MG ORAL; +OMEPRAZOLE20 M3 ORAL; +REGLAN5 MG ORAL
--- NOTE | 2018-05-07 10:40 | Emergency Room Report ---
History of Present Illness General Chief Complaint: Nausea, Vomiting, and Diarrhea Source: Patient Present Illness HPI 37yo female with no medical problems, history of remote appendectomy and D&C, presents with nausea vomiting diarrhea cramping abdominal pain diffuse severe, started this morning, she reports she ate Oreos last night. The obvious triggers, but she was just discharged 4 days ago from the hospital for the same problem, and told it was secondary to marijuana use. She reports she does not smoke that much marijuana, and has not smoked recently. She denies urinary complaints, fevers, gynecologic complaints his abnormal vaginal discharge. Allergies: Coded Allergies: PENICILLINS (Verified Allergy, Unknown, 04/29/18) Patient History Past Medical History: see triage record Last Menstrual Period: 08/2017 Now: No - CONTROL Reviewed Nursing Documentation: PMH: Agreed; PSxH: Agreed Nursing Documentation-PMH Hx Hypertension: Yes Hx Cancer: No Hx Gastrointestinal Problems: Yes - GERD Hx Neurological Problems: No Review of Systems All Other Systems: negative except mentioned in HPI Physical Exam Vital Signs Date Time Temp Pulse Resp B/P (MAP) Pulse Ox O2 Delivery O2 Flow Rate FiO2 05/07/18 10:07 97.8 60 18 187/107 100 Room Air 97.9 Sp02 EP Interpretation: reviewed, normal General Appearance: alert, non-toxic, moderate distress - Writhing around in pain Head: normocephalic Eyes: bilateral eye normal inspection, bilateral eye PERRL, bilateral eye EOMI ENT: normal ENT inspection, hearing grossly normal, normal pharynx, no angioedema, normal voice, moist mucus membranes Neck: normal inspection, full range of motion, supple, supple/symm/no masses Respiratory: chest non-tender, lungs clear, normal breath sounds, chest symmetrical, palpation of chest normal Cardiovascular #1: normal peripheral pulses, regular rate, rhythm Cardiovascular #2: 2+ radial (R), 2+ radial (L) Gastrointestinal: normal inspection, non tender, soft, no mass, no guarding, no rebound Rectal: deferred Genitourinary: normal inspection, no CVA tenderness Musculoskeletal: back normal, gait/station normal, normal range of motion, non- tender, no calf tenderness Neurologic: alert, responsive, staff physical therapy assistant III-XII nml as tested, motor strength/tone normal, sensory intact, speech normal Psychiatric: judgement/insight normal, memory normal, anxious Skin: normal color, no rash, warm/dry, normal turgor Lymphatic: no adenopathy Medical Decision Making Diagnostic Impression: Primary Impression: Cyclic vomiting syndrome ER Course patient with symptoms of cannabinoid hyperemesis syndrome given Haldol, Zofran, fluids. Patient feels better. Now patient is ready to go home, repeat abd exam soft. Reevaluation Time: 12:16 Last Vital Signs Date Time Temp Pulse Resp B/P (MAP) Pulse Ox O2 Delivery O2 Flow Rate FiO2 05/07/18 10:07 97.8 60 18 187/107 100 Room Air 97.9 Status: improved Reevaluation Impression Feels better and abdomen soft still. Nontender. Disposition: HOME, SELF-CARE Condition: Stable CRISPIN ATKINS M.D May 07, 2018 10:40
[2018-05-07] MEDS ORDERED: Haloperidol 5mg/ml Inj IM ONE (10:45)
[2018-05-07 10:58] VITALS: BP 187/107
[2018-05-07 11:14] LABS: BASOPHILS % (AUTO) 0.9 % (0.0-2.0); EOSINOPHILS % (AUTO) 0.2 % (0.0-3.0); HEMATOCRIT 41.1 % (37.0-47.0); HEMOGLOBIN 13.2 G/DL (12.0-16.0); LYMPHOCYTES % (AUTO) 21.2 % (20.0-45.0); MEAN CORPUSCULAR VOLUME 85 FL (80-99); MONOCYTES % (AUTO) 4.3 % (1.0-10.0); NEUTROPHILS % (AUTO) 73.4 % (45.0-75.0); PLATELET COUNT 281 K/UL (150-450); RED BLOOD COUNT 4.84 M/UL (4.20-5.40); RED CELL DISTRIBUTION WIDTH 11.9 % (11.6-14.8); WHITE BLOOD COUNT 6.9 K/UL (4.8-10.8)
[2018-05-07 11:24] LABS: ANION GAP 12 mmol/L (5-15); BLOOD UREA NITROGEN 6 mg/dL (7-18); CALCIUM 9.5 MG/DL (8.5-10.1); CARBON DIOXIDE 22 MMOL/L (21-32); CHLORIDE 104 MMOL/L (98-107); CREATININE 0.8 MG/DL (0.55-1.30); SODIUM 138 MMOL/L (136-145)
[2018-05-07 11:28] LABS: APPEARANCE,URINE CLEAR; BILIRUBIN, URINE NEGATIVE (NEGATIVE); COLOR,URINE PALE YELLOW; GLUCOSE, URINE (UA) NEGATIVE (NEGATIVE); KETONES,URINE NEGATIVE (NEGATIVE); LEUKOCYTE ESTERASE ,URINE 1+ (NEGATIVE); NITRITE,URINE NEGATIVE (NEGATIVE); PH,URINE 8 (4.5-8.0); PROTEIN,URINE 1+ (NEGATIVE); UROBILINOGEN,URINE NORMAL MG/DL (0.0-1.0)
[2018-05-07 11:28] LABS: ALANINE AMINOTRANSFERASE 27 U/L (12-78); ALBUMIN 3.9 G/DL (3.4-5.0); ALBUMIN/GLOBULIN RATIO 0.8 (1.0-2.7); ALKALINE PHOSPHATASE 78 U/L (46-116); ASPARTATE AMINO TRANSFERASE 14 U/L (15-37); BILIRUBIN,TOTAL 0.3 MG/DL (0.2-1.0)
[2018-05-07 12:08] VITALS: BP 154/86
[2018-05-07] MEDS ORDERED: ZOFRAN4 M1 ORAL (12:18)
[2018-05-07 12:31] VITALS: BP 154/86
== END 2018-05-07 12:33 | disposition home or self-care (01) ==
LOC: EMR 11:00
DX: G43.A0 Cyclical vomiting, in migraine, not intractable (principal); F12.988 Cannabis use, unspecified with other cannabis-induced disorder; I10 Essential (primary) hypertension; K21.9 Gastro-esophageal reflux disease without esophagitis; Z88.0 Allergy status to penicillin
CPT/HCPCS: 36415; 80053; 81003; 81025; 83690; 85025; 87491; 87590; 96361; 96372; 96374; 99284; J1630; J2405

== ENCOUNTER 2018-06-08 10:33 | Emergency (ER) | payer MEDICAID ==
[~2018-06-08] VITALS: Ht 167.6 cm; Wt 90.7 kg
[~2018-06-08 10:33] MED LIST changes: +ZOFRAN4 M1 ORAL
[2018-06-08] MEDS ORDERED: NKM (10:44)
--- NOTE | 2018-06-08 11:06 | Emergency Room Report ---
History of Present Illness General Chief Complaint: Skin Rash/Abscess Source: Patient Present Illness HPI Patient presents with one week of increased pain in her gluteal area. She denies any fevers or chills. There is also swelling there. The pain is severe. She denies any change in her bowels. Having trouble sitting down because of pain. No dysuria. Questions whether related to deodorant use in that area. Not . Has implant. No diabetes. Has been seen here for cyclic vomiting and was admitted once with intractable migraine. 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 Period: 08/2017; implants Reviewed Nursing Documentation: PMH: Agreed; PSxH: Agreed Nursing Documentation-PMH Past Medical History: No Stated History Hx Hypertension: Yes Hx Cancer: No Hx Gastrointestinal Problems: Yes - GERD Hx Neurological Problems: No Review of Systems Musculoskeletal: Reports: no symptoms All Other Systems: negative except mentioned in HPI Physical Exam Vital Signs Date Time Temp Pulse Resp B/P (MAP) Pulse Ox O2 Delivery O2 Flow Rate FiO2 06/08/18 10:41 98.5 97 18 145/88 99 Room Air 98.4 Sp02 EP Interpretation: reviewed, normal General Appearance: well appearing, no apparent distress Head: normocephalic, atraumatic Eyes: bilateral eye normal inspection, bilateral eye PERRL ENT: hearing grossly normal, normal voice, moist mucus membranes Neck: full range of motion, supple Respiratory: normal breath sounds, no respiratory distress, speaking full sentences Cardiovascular #1: regular rate, rhythm Cardiovascular #2: 2+ radial (R) Gastrointestinal: normal inspection, normal bowel sounds, non tender, soft, overweight Rectal: other - pilonidal inflammation L side with fluctuance Genitourinary: no CVA tenderness Musculoskeletal: back normal, digits/nails normal, gait/station normal, normal range of motion Neurologic: alert, oriented x3, normal gait, grossly normal Psychiatric: mood/affect normal, anxious Skin: other - swelling top of gluteal crease, more on L Procedures Incision and Drainage Incision and Drainage : Consent: Verbal Site: Pilonidal cyst Blade Size: 11 I & D Procedure: betadine prep, sterile drapes applied, sterile dressing applied, gauze wick placed Wound Location: other - upper gluteal cleft Left Wound Explored: contaminated - much pus drained spontaneously, then expressed with ease Irrigated w/ Saline (ccs): 20 Anesthesia: Lidocaine w/ Epi Volume Anesthetic (ccs): 3 Patient Tolerated: Well Complications: None Medical Decision Making Diagnostic Impression: Primary Impression: Pilonidal abscess ER Course Patient presents with infected pilonidal cyst. The patient needs to have incision and drainage. She'll be given analgesia, topical anesthetic, antibiotics. I and D performed. Tolerate well. Instructed to return 2 days for drain REPLACEMENT. Improved with treatment. Patient stable for outpatient observation and treatment. Last Vital Signs Date Time Temp Pulse Resp B/P (MAP) Pulse Ox O2 Delivery O2 Flow Rate FiO2 06/08/18 14:15 98.6 97 18 145/88 99 Room Air 209.3 Status: improved Disposition: HOME, SELF-CARE Condition: Improved Scripts Ibuprofen* (MOTRIN*) 600 Mg Tablet 600 MG ORAL Q6H PRN for For Pain, #16 TAB Prov: Reynaldo Saunders M.D. 06/08/18 Tramadol Hcl* (ULTRAM*) 50 Mg Tablet 50 MG ORAL Q6H PRN for For Pain, #12 TAB 0 Refills Prov: Reynaldo Saunders M.D. 06/08/18 Trimethoprim/Sulfamethoxazole 160/800* (BACTRIM DS TABLET*) 1 Each Tablet 1 TAB ORAL Q12H, #14 TAB 0 Refills Prov: Reynaldo Saunders M.D. 06/08/18 Referrals: NON PHYSICIAN (PCP) Reynaldo Saunders M.D. Jun 08, 2018 11:05
[2018-06-08] MEDS ORDERED: oxyCODONE HCL/Acetaminophen 5/325mg ORAL ONE (11:15)
[2018-06-08] MEDS ORDERED: LET 3ml Soln TOPIC ONE (11:15)
[2018-06-08] MEDS ORDERED: Bactrim-DS 1 tab ORAL ONE (11:15)
[2018-06-08] MEDS: Lidocaine 1% 10mg/ml/Epi 0.005mg/ml 30ml vial INJ ONE (11:16)
[2018-06-08 11:20] VITALS: BP 145/88
[2018-06-08] MEDS ORDERED: BACTRIM DS TAB1 EAC1 ORAL (14:05)
[2018-06-08] MEDS ORDERED: IBUPROFEN600 MG ORAL (14:05)
[2018-06-08] MEDS ORDERED: TRAMADOL HCL50 MG ORAL (14:05)
[2018-06-08 14:15] VITALS: BP 145/88
== END 2018-06-08 14:15 | disposition home or self-care (01) ==
LOC: EMR 10:50
DX: L05.01 Pilonidal cyst with abscess (principal); I10 Essential (primary) hypertension; K21.9 Gastro-esophageal reflux disease without esophagitis; Z88.0 Allergy status to penicillin
CPT/HCPCS: 10060; 99283

== ENCOUNTER 2018-06-12 08:27 | Emergency (ER) | payer MEDICAID ==
[~2018-06-12] VITALS: Ht 167.6 cm; Wt 90.7 kg
[~2018-06-12 08:27] MED LIST changes: +BACTRIM DS TAB1 EAC1 ORAL; +IBUPROFEN600 MG ORAL; +NKM
[2018-06-12 08:45] VITALS: BP 137/92
--- NOTE | 2018-06-12 08:58 | Emergency Room Report ---
History of Present Illness General Chief Complaint: General Complaint Source: Patient Present Illness HPI Patient is a 38-year-old female who presented after a recent incision and drainage of pilonidal abscess. Patient presented for wound check. Patient previously had incision and drainage. She denies any fever. She had been having some slight amount of drainage from the wound. The patient reported having a decreased pain to the area. Allergies: Coded Allergies: PENICILLINS (Verified Allergy, Unknown, 04/29/18) Patient History Last Menstrual Period: [place] Now: No Reviewed Nursing Documentation: PMH: Agreed; PSxH: Agreed Nursing Documentation-PMH Past Medical History: No History, Except For Hx Hypertension: Yes Hx Cancer: No Hx Gastrointestinal Problems: Yes - GERD Hx Neurological Problems: No Review of Systems All Other Systems: negative except mentioned in HPI Physical Exam Vital Signs Date Time Temp Pulse Resp B/P (MAP) Pulse Ox O2 Delivery O2 Flow Rate FiO2 06/12/18 08:32 98.5 95 18 137/92 95 Room Air 98.4 General Appearance: well appearing, no apparent distress, alert, GCS 15, obese Head: normocephalic, atraumatic ENT: hearing grossly normal, normal voice Neck: full range of motion, supple Respiratory: no respiratory distress, speaking full sentences Musculoskeletal: no calf tenderness Neurologic: normal inspection, alert, oriented x3, normal gait Psychiatric: mood/affect normal Skin: no rash, other - healing incision without erythema or significant drainage Medical Decision Making Diagnostic Impression: Primary Impression: Wound check, abscess ER Course Patient presented for wound check. Differential diagnosis included was not limited to infected wound, nonhealed wound, neuroma, healed wound. The wound does not appear to be infected. The patient's wound was irrigated. The patient 's wound was repacked with sterile gauze. The patient was advised to remove packing in one day. The patient is advised to follow up with primary care doctor in 2 days. Patient is advised to return if any worsening condition or if any changes in status that are concerning. This report is dictated with [employer] business process consultant software which may occasionally lead to discrepancies related to use of this software. Last Vital Signs Date Time Temp Pulse Resp B/P (MAP) Pulse Ox O2 Delivery O2 Flow Rate FiO2 06/12/18 08:45 98.4 95 18 137/92 95 Room Air 98.4 Status: improved Disposition: HOME, SELF-CARE Referrals: NON PHYSICIAN (PCP) Ren Clark MD Jun 12, 2018 08:58
[2018-06-12 09:15] VITALS: BP 137/92
== END 2018-06-12 09:16 | disposition home or self-care (01) ==
LOC: EMR 08:50
DX: Z48.817 Encounter for surgical aftercare following surgery on the skin and subcutaneous tissue (principal); L05.01 Pilonidal cyst with abscess
CPT/HCPCS: 99282

== ENCOUNTER 2018-07-06 09:13 | Emergency (ER) | payer MEDICAID ==
[~2018-07-06] VITALS: Ht 167.6 cm; Wt 90.7 kg
[2018-07-06] MEDS ORDERED: Morphine Sulfate 4mg/ml Inj (IV USE ONLY) IVP ONE (09:30)
[2018-07-06] MEDS ORDERED: DiphenhydrAMINE 50mg/ml Inj ONE (09:50)
[2018-07-06 09:58] LABS: BASOPHILS % (AUTO) 0.7 % (0.0-2.0); EOSINOPHILS % (AUTO) 0.2 % (0.0-3.0); HEMATOCRIT 45.3 % (37.0-47.0); HEMOGLOBIN 14.5 G/DL (12.0-16.0); LYMPHOCYTES % (AUTO) 24.2 % (20.0-45.0); MEAN CORPUSCULAR VOLUME 85 FL (80-99); NEUTROPHILS % (AUTO) 70.8 % (45.0-75.0); PLATELET COUNT 281 K/UL (150-450); RED BLOOD COUNT 5.36 M/UL (4.20-5.40); RED CELL DISTRIBUTION WIDTH 11.2 % (11.6-14.8); WHITE BLOOD COUNT 9.3 K/UL (4.8-10.8)
--- NOTE | 2018-07-06 09:59 | Emergency Room Report ---
History of Present Illness General Chief Complaint: Abdominal Pain Source: Patient Present Illness HPI 38-year-old female presents ED for evaluation. Patient complaining of abdominal pain with vomiting and diarrhea started last night after eating some beef from a restaurant. States that multiple episodes of vomiting and diarrhea. Pain is cramping, 10 out of 10, nonradiating. Denies chest pain or shortness of breath. Denies fevers or chills. Denies recent travel or recent antibiotic use. History of cyclical vomitingdenies marijuana use. No other aggravating relieving factors. Denies any other associated symptoms Allergies: Coded Allergies: PENICILLINS (Verified Allergy, Unknown, 04/29/18) Patient History Past Medical History: GERD Past Surgical History: none Pertinent Family History: none Social History: Denies: smoking, alcohol use, drug use Last Menstrual Period: august 2017 Now: No Immunizations: UTD Reviewed Nursing Documentation: PMH: Agreed; PSxH: Agreed Nursing Documentation-PMH Hx Hypertension: Yes Hx Cancer: No Hx Gastrointestinal Problems: Yes - GERD Hx Neurological Problems: No Review of Systems All Other Systems: negative except mentioned in HPI Physical Exam Vital Signs Date Time Temp Pulse Resp B/P (MAP) Pulse Ox O2 Delivery O2 Flow Rate FiO2 07/06/18 09:16 98.1 98 18 192/102 98 Room Air 98.1 Sp02 EP Interpretation: reviewed, normal General Appearance: alert, GCS 15, non-toxic, mild distress, obese Head: normocephalic, atraumatic Eyes: bilateral eye normal inspection, bilateral eye PERRL ENT: hearing grossly normal, normal pharynx, no angioedema, normal voice Neck: full range of motion, supple/symm/no masses Respiratory: chest non-tender, lungs clear, normal breath sounds, speaking full sentences Cardiovascular #1: regular rate, rhythm, no edema Cardiovascular #2: 2+ carotid (R), 2+ carotid (L), 2+ radial (R), 2+ radial (L) , 2+ dorsalis pedis (R), 2+ dorsalis pedis (L) Gastrointestinal: normal bowel sounds, soft, non-distended, no guarding, no rebound, tenderness Rectal: deferred Genitourinary: normal inspection, no CVA tenderness Musculoskeletal: back normal, gait/station normal, normal range of motion, non- tender Neurologic: alert, oriented x3, responsive, motor strength/tone normal, sensory intact, speech normal Psychiatric: judgement/insight normal, memory normal, mood/affect normal, no suicidal/homicidal ideation Reflexes: 3+ bicep (R), 3+ bicep (L), 3+ tricep (R), 3+ tricep (L), 3+ knee (R) , 3+ knee (L) Skin: normal color, no rash, warm/dry, well hydrated Lymphatic: no adenopathy Medical Decision Making Diagnostic Impression: Primary Impression: Gastroenteritis Additional Impression: Cyclic vomiting syndrome Qualified Codes: G43.A0 - Cyclical vomiting, not intractable ER Course Hospital Course 38-year-old F presents to ED with cramping abdominal pain with vomiting, diarrhea differential diagnosis: gastritis, SBO, cholecystits, gastroenteritis Clinical course Patient placed on stretcher. 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 After initial history and physical I ordered labs, IV fluids, pepcid, and Zantac Labs - no leukocytosis, electrolytes ok, LFTs normal, UA unremarkable Upon reassessment, patient states she feels better. safe for discharge with close outpatient followup. I feel this is a highly complex case requiring extensive working including EKG/ Rhythm strip, Xray/CT/US, Blood/urine lab work, repeat exams while in ED, and administration of strong opiates/narcotics for pain control, admission to hospital or close patient follow up. Diagnosis - gastroenteritis Stable and discharged to home with prescriptions for Zantac, reglan, bentyl. Followup with PMD. Return to ED if symptoms recur or worsen Labs Test 07/06/18 09:20 07/06/18 09:38 Urine Color Pale yellow Urine Appearance Slightly cloudy Urine pH 6.5 (4.5-8.0) Urine Specific [place] 1.015 (1.005-1.035) Urine Protein 2+ (NEGATIVE) Urine Glucose (UA) Negative (NEGATIVE) Urine Ketones 2+ (NEGATIVE) Urine Blood 4+ (NEGATIVE) Urine Nitrite Negative (NEGATIVE) Urine Bilirubin Negative (NEGATIVE) Urine Urobilinogen Normal MG/DL (0.0-1.0) Urine Leukocyte Esterase Negative (NEGATIVE) Urine RBC 40-60 /HPF (0 - 2) Urine WBC 2-4 /HPF (0 - 2) Urine Squamous Epithelial Cells Many /LPF (NONE/OCC) Urine Bacteria Few /HPF (NONE) Urine HCG, Qualitative Negative (NEGATIVE) Urine Opiates Screen Negative (NEGATIVE) Urine Barbiturates Screen Negative (NEGATIVE) Phencyclidine (PCP) Screen Negative (NEGATIVE) Urine Amphetamines Screen Negative (NEGATIVE) Urine Benzodiazepines Screen Negative (NEGATIVE) Urine Cocaine Screen Negative (NEGATIVE) Urine Marijuana (THC) Screen Positive (NEGATIVE) White Blood Count 9.3 K/UL (4.8-10.8) Red Blood Count 5.36 M/UL (4.20-5.40) Hemoglobin 14.5 G/DL (12.0-16.0) Hematocrit 45.3 % (37.0-47.0) Mean Corpuscular Volume 85 FL (80-99) Mean Corpuscular Hemoglobin 27.1 PG (27.0-31.0) Mean Corpuscular Hemoglobin Concent 32.1 G/DL (32.0-36.0) Red Cell Distribution Width 11.2 % (11.6-14.8) Platelet Count 281 K/UL (150-450) Mean Platelet Volume 7.5 FL (6.5-10.1) Neutrophils (%) (Auto) 70.8 % (45.0-75.0) Lymphocytes (%) (Auto) 24.2 % (20.0-45.0) Monocytes (%) (Auto) 4.0 % (1.0-10.0) Eosinophils (%) (Auto) 0.2 % (0.0-3.0) Basophils (%) (Auto) 0.7 % (0.0-2.0) Sodium Level 137 MMOL/L (136-145) Potassium Level 3.7 MMOL/L (3.5-5.1) Chloride Level 103 MMOL/L (98-107) Carbon Dioxide Level 21 MMOL/L (21-32) Anion Gap 13 mmol/L (5-15) Blood Urea Nitrogen 9 mg/dL (7-18) Creatinine 0.8 MG/DL (0.55-1.30) Estimat Glomerular Filtration Rate > 60 mL/min (>60) Glucose Level 117 MG/DL (74-106) Calcium Level 9.6 MG/DL (8.5-10.1) Total Bilirubin 0.5 MG/DL (0.2-1.0) Aspartate Amino Transf (AST/SGOT) 14 U/L (15-37) Alanine Aminotransferase (ALT/SGPT) 22 U/L (12-78) Alkaline Phosphatase 96 U/L (46-116) Total Protein 9.1 G/DL (6.4-8.2) Albumin 4.1 G/DL (3.4-5.0) Globulin 5.0 g/dL Albumin/Globulin Ratio 0.8 (1.0-2.7) Lipase 114 U/L (73-393) Last Vital Signs Date Time Temp Pulse Resp B/P (MAP) Pulse Ox O2 Delivery O2 Flow Rate FiO2 07/06/18 09:55 98.1 07/06/18 09:16 98 18 192/102 98 Room Air Status: improved Disposition: HOME, SELF-CARE Condition: Stable Scripts Metoclopramide Hcl* (REGLAN*) 10 Mg Tablet 10 MG ORAL THREE TIMES A DAY, #20 TAB Prov: Dieudonne Tomlin MD 07/06/18 Ondansetron Odt* (ZOFRAN ODT*) 4 Mg Tab.rapdis 4 MG BC EVERY 6 HOURS PRN for Nausea & Vomiting, #20 TAB 0 Refills Prov: Dieudonne Tomlin MD 07/06/18 Dicyclomine Hcl* (DICYCLOMINE HCL*) 10 Mg Capsule 10 MG PO QID, #20 CAP Prov: Dieudonne Tomlin MD 07/06/18 Ranitidine Hcl* (ZANTAC*) 150 Mg Tablet 150 MG ORAL TWICE A DAY, #30 TAB Prov: Dieudonne Tomlin MD 07/06/18 Dieudonne Tomlin MD Jul 06, 2018 09:59
[2018-07-06] MEDS ORDERED: DiphenhydrAMINE 50mg/ml Inj IVP ONE (10:00)
[2018-07-06 10:24] LABS: ANION GAP 13 mmol/L (5-15); BLOOD UREA NITROGEN 9 mg/dL (7-18); CALCIUM 9.6 MG/DL (8.5-10.1); CARBON DIOXIDE 21 MMOL/L (21-32); CHLORIDE 103 MMOL/L (98-107); CREATININE 0.8 MG/DL (0.55-1.30); POTASSIUM 3.7 MMOL/L (3.5-5.1); SODIUM 137 MMOL/L (136-145)
[2018-07-06 10:26] LABS: APPEARANCE,URINE SLIGHTLY CLOUDY; BILIRUBIN, URINE NEGATIVE (NEGATIVE); COLOR,URINE PALE YELLOW; GLUCOSE, URINE (UA) NEGATIVE (NEGATIVE); KETONES,URINE 2+ (NEGATIVE); LEUKOCYTE ESTERASE ,URINE NEGATIVE (NEGATIVE); NITRITE,URINE NEGATIVE (NEGATIVE); PH,URINE 6.5 (4.5-8.0); PROTEIN,URINE 2+ (NEGATIVE); UROBILINOGEN,URINE NORMAL MG/DL (0.0-1.0)
[2018-07-06 10:30] LABS: ALANINE AMINOTRANSFERASE 22 U/L (12-78); ALBUMIN 4.1 G/DL (3.4-5.0); ALBUMIN/GLOBULIN RATIO 0.8 (1.0-2.7); ALKALINE PHOSPHATASE 96 U/L (46-116); ASPARTATE AMINO TRANSFERASE 14 U/L (15-37); BILIRUBIN,TOTAL 0.5 MG/DL (0.2-1.0)
[2018-07-06 10:42] VITALS: BP 141/72
[2018-07-06] MEDS ORDERED: RANITIDINE HCL150 MG ORAL (11:38)
[2018-07-06] MEDS ORDERED: ONDANSETRON ODT4 MG BC (11:38)
[2018-07-06] MEDS ORDERED: DICYCLOMINE HCL10 MG PO (11:38)
[2018-07-06 11:59] VITALS: BP 141/72
[2018-07-06 12:00] VITALS: BP 141/72
[2018-07-06] MEDS ORDERED: REGLAN10 MG ORAL (12:23)
== END 2018-07-06 12:30 | disposition home or self-care (01) ==
LOC: EMR 10:15
DX: K52.9 Noninfective gastroenteritis and colitis, unspecified (principal); G43.A0 Cyclical vomiting, in migraine, not intractable; Z88.0 Allergy status to penicillin
CPT/HCPCS: 36415; 80053; 80307; 81003; 81025; 83690; 85025; 96361; 96374; 96375; 99284; J1200; J2270; J2405; S0028

== ENCOUNTER 2018-08-16 07:59 | Emergency (ER) | payer MEDICAID ==
[~2018-08-16] VITALS: Ht 167.6 cm; Wt 97.5 kg
[~2018-08-16 07:59] MED LIST changes: +RANITIDINE HCL150 MG ORAL; +REGLAN10 MG ORAL
[2018-08-16] MEDS ORDERED: EPINEPHrine 1mg/1ml Amp IM ONE (08:30)
--- NOTE | 2018-08-16 08:34 | Emergency Room Report ---
History of Present Illness General Chief Complaint: Skin Rash/Abscess Source: Patient Present Illness HPI Patient presents with 2 weeks of hives. They're intermittent. They started possibly on her arms. She's been taking Benadryl around the clock. This has helped somewhat. Nothing new diet-gomez or clothes or perfumes. Occasionally her lip will swell but there is no angioedema. She has no trouble swallowing. Is no nausea vomiting. 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 The patient has a history of hypertension is controlled with medication. She's been seen here for epigastric pain and cyclic vomiting. Denies NVD or abdominal pain at this time. LNMP normal. No dysuria. 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 Now: No Reviewed Nursing Documentation: PMH: Agreed; PSxH: Agreed Nursing Documentation-PMH Past Medical History: No History, Except For Hx Hypertension: Yes Hx Cancer: No Hx Gastrointestinal Problems: Yes - GERD Hx Neurological Problems: No Review of Systems All Other Systems: negative except mentioned in HPI Physical Exam Vital Signs Date Time Temp Pulse Resp B/P (MAP) Pulse Ox O2 Delivery O2 Flow Rate FiO2 08/16/18 08:04 98.2 83 18 133/89 97 Room Air Sp02 EP Interpretation: reviewed, normal General Appearance: well appearing, no apparent distress, GCS 15 Head: normocephalic, atraumatic Eyes: bilateral eye normal inspection, bilateral eye PERRL ENT: hearing grossly normal, no angioedema, normal voice, moist mucus membranes Neck: full range of motion, supple Respiratory: lungs clear, no respiratory distress, speaking full sentences Musculoskeletal: digits/nails normal, gait/station normal, normal range of motion Neurologic: alert, oriented x3, normal gait, grossly normal Psychiatric: mood/affect normal Skin: other - Jwvzo-mhl-etadv reaction Medical Decision Making Diagnostic Impression: Primary Impression: Hives ER Course Patient presents with hives. Differential includes allergic, stress, viral. Review of systems reveals no new etiologies. She's never had this before. This is not contagious. She'll be treated with epinephrine, Pepcid. She's been taking Benadryl. Improved with epi. C/O headache. Discussed need for outpatient work up. Patient stable for outpatient observation and treatment. Last Vital Signs Date Time Temp Pulse Resp B/P (MAP) Pulse Ox O2 Delivery O2 Flow Rate FiO2 08/16/18 10:09 98.2 68 18 129/87 99 Room Air Status: improved Disposition: HOME, SELF-CARE Condition: Improved Scripts Famotidine (PEPCID AC) 20 Mg Tablet 20 MG PO DAILY, #20 TAB Prov: Reynaldo Saunders MD 08/16/18 Prednisone* (PREDNISONE*) 20 Mg Tablet 40 MG ORAL DAILY for 5 Days, #10 TAB Prov: Reynaldo Saunders MD 08/16/18 Diphenhydramine Hcl* (BENADRYL*) 25 Mg Capsule 25 MG ORAL Q6H PRN for Itching, #20 CAP Prov: Reynaldo Saunders MD 08/16/18 Reynaldo Saunders MD Aug 16, 2018 08:34
[2018-08-16] MEDS ORDERED: BENADRYL25 MG ORAL (08:38)
[2018-08-16] MEDS ORDERED: PREDNISONE20 MG ORAL (08:38)
[2018-08-16] MEDS ORDERED: PEPCID AC20 M2 PO (08:38)
[2018-08-16 08:47] VITALS: BP 133/89
[2018-08-16 10:09] VITALS: BP 129/87
== END 2018-08-16 10:11 | disposition home or self-care (01) ==
LOC: EMR 08:35
DX: L50.9 Urticaria, unspecified (principal); Z88.0 Allergy status to penicillin; F12.90 Cannabis use, unspecified, uncomplicated; F17.200 Nicotine dependence, unspecified, uncomplicated; I10 Essential (primary) hypertension; K21.9 Gastro-esophageal reflux disease without esophagitis
CPT/HCPCS: 96372; 99283; J0171; J7512

== ENCOUNTER 2018-09-03 04:45 | Emergency (ER) | payer MEDICAID ==
[~2018-09-03] VITALS: Ht 167.6 cm; Wt 90.7 kg
[~2018-09-03 04:45] MED LIST changes: +BENADRYL25 MG ORAL; +PEPCID AC20 M2 PO; +PREDNISONE20 MG ORAL
[2018-09-03 05:00] VITALS: BP 121/67
[2018-09-03] MEDS ORDERED: NKM (05:01)
[2018-09-03] MEDS ORDERED: Morphine Sulfate 4mg/ml Inj (IV/IM USE ONLY) IVP ONE ×2 (05:15→06:00)
--- NOTE | 2018-09-03 05:15 | Emergency Room Report ---
History of Present Illness General Chief Complaint: Abdominal Pain Source: Patient, Medical Record Present Illness HPI Is a 38-year-old female with no cerumen past medical history. She does have a history of abdominal pain with nausea vomiting and diarrhea. She presents with chief complaint abdominal pain with nausea vomiting and diarrhea. This usually triggered by certain food. She said she ate too much for Thanksgiving and started having vomiting and diarrhea. Vomiting is nonbloody nonbilious. Watery diarrhea. Pain is sharp and crampy. 8 out of 10. Allergies: Coded Allergies: PENICILLINS (Verified Allergy, Unknown, 04/29/18) Patient History Past Medical History: see triage record, old chart reviewed Past Surgical History: other Pertinent Family History: none Social History: Denies: smoking Last Menstrual Period: 08/2017 Now: No : 3 Para: 1 Immunizations: other Reviewed Nursing Documentation: PMH: Agreed; PSxH: Agreed Nursing Documentation-PMH Past Medical History: No History, Except For Hx Hypertension: Yes Hx Cancer: No Hx Gastrointestinal Problems: Yes - GERD Hx Neurological Problems: No Review of Systems Eye: Denies: eye pain, blurred vision ENT: Denies: ear pain, nose congestion, throat swelling Respiratory: Denies: cough, shortness of breath Cardiovascular: Denies: chest pain, palpitations Gastrointestinal: Reports: abdominal pain, diarrhea, nausea, vomiting Musculoskeletal: Denies: back pain, joint pain Skin: Denies: rash Neurological: Denies: headache, numbness Endocrine: Denies: increased thirst, increased urine Hematologic/Lymphatic: Denies: easy bruising All Other Systems: negative except mentioned in HPI Physical Exam Vital Signs Date Time Temp Pulse Resp B/P (MAP) Pulse Ox O2 Delivery O2 Flow Rate FiO2 09/03/18 04:58 98.1 67 3 170/93 100 Room Air vitals with high blood pressure Sp02 EP Interpretation: reviewed, normal General Appearance: well appearing, no apparent distress, alert, obese Head: normocephalic, atraumatic Eyes: bilateral eye PERRL, bilateral eye EOMI ENT: hearing grossly normal, normal pharynx Neck: full range of motion, supple, no meningismus Respiratory: chest non-tender, lungs clear, normal breath sounds Cardiovascular #1: regular rate, rhythm, no murmur Gastrointestinal: normal bowel sounds, no mass, no organomegaly, no bruit, non- distended, tenderness - diffuse, decreased bowel sounds Musculoskeletal: back normal, gait/station normal, normal range of motion Psychiatric: mood/affect normal Skin: warm/dry Medical Decision Making Diagnostic Impression: Primary Impression: Nausea, vomiting and diarrhea Additional Impression: Abdominal pain Qualified Codes: R10.84 - Generalized abdominal pain ER Course Patient with abdominal pain with nausea vomiting and diarrhea. No evidence of any obstruction. No evidence of acute abdomen. Patient felt better now. We' ll discharge home. Lab Results Impression labs unremarkable Last Vital Signs Date Time Temp Pulse Resp B/P (MAP) Pulse Ox O2 Delivery O2 Flow Rate FiO2 09/03/18 04:58 98.1 67 3 170/93 100 Room Air Status: improved Disposition: HOME, SELF-CARE Condition: Stable Scripts Hydrocodone/Acetaminophen 5-325* (HYDROCODONE/ACETAMINOPHEN 5-325*) 1 Each Tablet 1 TAB ORAL Q6H PRN for For Pain, #15 TAB 0 Refills Prov: Rigoberto Gallardo MD 09/03/18 Promethazine Hcl* (PHENERGAN*) 25 Mg Tablet 25 MG ORAL Q6H, #20 TAB Prov: Rigoberto Gallardo MD 09/03/18 Patient Instructions: Abdominal Pain, Adult Additional Instructions: Follow-up with your DrAmna in 2-3 days. Return if symptom worsen. You may need a referral to see a polystyrene bead molder. Rigoberto Gallardo MD Sep 03, 2018 05:15
[2018-09-03 05:45] LABS: BASOPHILS % (AUTO) 0.7 % (0.0-2.0); HEMATOCRIT 37.6 % (37.0-47.0); HEMOGLOBIN 12.7 G/DL (12.0-16.0); LYMPHOCYTES % (AUTO) 14.6 % (20.0-45.0); MEAN CORPUSCULAR VOLUME 84 FL (80-99); MONOCYTES % (AUTO) 1.9 % (1.0-10.0); NEUTROPHILS % (AUTO) 82.9 % (45.0-75.0); PLATELET COUNT 291 K/UL (150-450); RED CELL DISTRIBUTION WIDTH 11.3 % (11.6-14.8); WHITE BLOOD COUNT 9.5 K/UL (4.8-10.8)
[2018-09-03 05:51] LABS: ANION GAP 12 mmol/L (5-15); BLOOD UREA NITROGEN 11 mg/dL (7-18); CALCIUM 9.4 MG/DL (8.5-10.1); CARBON DIOXIDE 23 MMOL/L (21-32); CHLORIDE 102 MMOL/L (98-107); CREATININE 0.7 MG/DL (0.55-1.30); POTASSIUM 4.1 MMOL/L (3.5-5.1); SODIUM 137 MMOL/L (136-145)
[2018-09-03] MEDS ORDERED: Morphine Sulfate 4mg/ml Inj (IV/IM USE ONLY) ONE (05:59)
[2018-09-03] MEDS ORDERED: PROMETHAZINE HC25 M1 ORAL (06:19)
[2018-09-03] MEDS ORDERED: HYDROCODON-ACE1 EA15 ORAL (06:19)
[2018-09-03 06:44] VITALS: BP 104/60
== END 2018-09-03 06:27 | disposition home or self-care (01) ==
LOC: EMR 05:01
DX: R11.2 Nausea with vomiting, unspecified (principal); R19.7 Diarrhea, unspecified; R10.9 Unspecified abdominal pain; I10 Essential (primary) hypertension
CPT/HCPCS: 36415; 80048; 85025; 96361; 96374; 96375; 96376; 99284; J2270; J2405

== ENCOUNTER 2018-09-09 21:11 | Emergency (ER) | payer MEDICAID ==
[~2018-09-09] VITALS: Ht 167.6 cm; Wt 90.7 kg
[~2018-09-09 21:11] MED LIST changes: +HYDROCODON-ACE1 EA15 ORAL; +PROMETHAZINE HC25 M1 ORAL
[2018-09-09 21:34] VITALS: BP 170/85
[2018-09-09] MEDS ORDERED: Morphine Sulfate 4mg/ml Inj (IV/IM USE ONLY) IVP ONE (22:00)
[2018-09-09] MEDS ORDERED: Isovue-300 100ml vial INJ PRN (22:00)
[2018-09-09 22:41] LABS: BASOPHILS % (AUTO) 0.7 % (0.0-2.0); EOSINOPHILS % (AUTO) 0.2 % (0.0-3.0); HEMATOCRIT 42.5 % (37.0-47.0); LYMPHOCYTES % (AUTO) 25.7 % (20.0-45.0); MEAN CORPUSCULAR VOLUME 84 FL (80-99); MONOCYTES % (AUTO) 3.6 % (1.0-10.0); NEUTROPHILS % (AUTO) 69.9 % (45.0-75.0); PLATELET COUNT 170 K/UL (150-450); RED BLOOD COUNT 5.09 M/UL (4.20-5.40); RED CELL DISTRIBUTION WIDTH 11.6 % (11.6-14.8); WHITE BLOOD COUNT 9.5 K/UL (4.8-10.8)
[2018-09-09 22:45] LABS: ANION GAP 14 mmol/L (5-15); BLOOD UREA NITROGEN 6 mg/dL (7-18); CALCIUM 9.8 MG/DL (8.5-10.1); CARBON DIOXIDE 22 MMOL/L (21-32); CHLORIDE 100 MMOL/L (98-107); CREATININE 0.7 MG/DL (0.55-1.30); SODIUM 136 MMOL/L (136-145)
[2018-09-09 22:50] LABS: ALANINE AMINOTRANSFERASE 18 U/L (12-78); ALBUMIN 3.8 G/DL (3.4-5.0); ALBUMIN/GLOBULIN RATIO 0.7 (1.0-2.7); ALKALINE PHOSPHATASE 90 U/L (46-116); ASPARTATE AMINO TRANSFERASE 17 U/L (15-37); BILIRUBIN,TOTAL 0.5 MG/DL (0.2-1.0)
[2018-09-09] MEDS ORDERED: Metoclopramide 10mg/2ml Inj IVP ONE (23:00)
[2018-09-09 23:31] LABS: APPEARANCE,URINE CLEAR; BILIRUBIN, URINE NEGATIVE (NEGATIVE); COLOR,URINE YELLOW; GLUCOSE, URINE (UA) NEGATIVE (NEGATIVE); KETONES,URINE 4+ (NEGATIVE); LEUKOCYTE ESTERASE ,URINE 1+ (NEGATIVE); NITRITE,URINE NEGATIVE (NEGATIVE); PH,URINE 6 (4.5-8.0); PROTEIN,URINE 2+ (NEGATIVE); UROBILINOGEN,URINE NORMAL MG/DL (0.0-1.0)
[2018-09-10] MEDS ORDERED: Morphine Sulfate 4mg/ml Inj (IV/IM USE ONLY) IVP ONE (00:30)
[2018-09-10] MEDS ORDERED: REGLAN10 MG ORAL (01:06)
[2018-09-10] MEDS ORDERED: PEPCID AC20 M2 PO (01:06)
[2018-09-10 01:08] VITALS: BP 150/85
--- NOTE | 2018-09-10 01:32 | Emergency Room Report ---
History of Present Illness General Chief Complaint: Nausea, Vomiting, and Diarrhea Source: Patient Present Illness HPI 38-year-old female presents ED for evaluation. Complaining of abdominal pain with vomiting. Was seen here 3 days ago and was prescribed medications but states the medications are not helping. Has had this problem many times in the past. Pain is throbbing, 8 out of 10, nonradiating. Denies fevers or chills. Denies chest pain or shortness of breath. No other aggravating relieving factors. Denies any other associated symptoms Allergies: Coded Allergies: PENICILLINS (Verified Allergy, Unknown, 04/29/18) Patient History Past Medical History: HTN, GERD Past Surgical History: none Pertinent Family History: none Social History: Reports: drug use; Denies: smoking, alcohol use Last Menstrual Period: aug 2017 Now: No Immunizations: UTD Reviewed Nursing Documentation: PMH: Agreed; PSxH: Agreed Nursing Documentation-PMH Hx Hypertension: Yes Hx Cancer: No Hx Gastrointestinal Problems: Yes - GERD Hx Neurological Problems: No Review of Systems All Other Systems: negative except mentioned in HPI Physical Exam Vital Signs Date Time Temp Pulse Resp B/P (MAP) Pulse Ox O2 Delivery O2 Flow Rate FiO2 09/09/18 21:34 98.2 68 18 170/85 100 Room Air Sp02 EP Interpretation: reviewed, normal General Appearance: no apparent distress, alert, GCS 15, non-toxic Head: normocephalic, atraumatic Eyes: bilateral eye normal inspection, bilateral eye PERRL ENT: hearing grossly normal, normal pharynx, no angioedema, normal voice Neck: full range of motion, supple/symm/no masses Respiratory: chest non-tender, lungs clear, normal breath sounds, speaking full sentences Cardiovascular #1: regular rate, rhythm, no edema Cardiovascular #2: 2+ carotid (R), 2+ carotid (L), 2+ radial (R), 2+ radial (L) , 2+ dorsalis pedis (R), 2+ dorsalis pedis (L) Gastrointestinal: normal bowel sounds, soft, non-distended, no guarding, no rebound, tenderness Rectal: deferred Genitourinary: normal inspection, no CVA tenderness Musculoskeletal: back normal, gait/station normal, normal range of motion, non- tender Neurologic: alert, oriented x3, responsive, motor strength/tone normal, sensory intact, speech normal Psychiatric: judgement/insight normal, memory normal, mood/affect normal, no suicidal/homicidal ideation Reflexes: 3+ bicep (R), 3+ bicep (L), 3+ tricep (R), 3+ tricep (L), 3+ knee (R) , 3+ knee (L) Skin: normal color, no rash, warm/dry, well hydrated Lymphatic: no adenopathy Medical Decision Making Diagnostic Impression: Primary Impression: Cyclic vomiting syndrome Qualified Codes: G43.A0 - Cyclical vomiting, not intractable ER Course Hospital Course 38-year-old F presents to ED with abdominal pain wiht vomiting Differential diagnosis includes-appendicitis, cholecystitis, small bowel obstruction, gastritis, Clinical course Patient placed on stretcher. After initial history and physical I ordered labs , IV fluids, pain medications, zofran and CT scan Labs - no leukocytosis, electrolytes ok, LFTs normal, UA unremarkable. Utox +THC CT scan shows no acute pathology Discussed findings with patient. Patient has been here previously for similar episodes of pain and vomiting. Diagnoses of cyclical vomiting has been made. Patient's use of marijuana use is likely triggering the cyclical vomiting. Patient is safe for discharge at this time. We will discharge with Pepcid and Reglan. We'll provide GI referral. She agrees to plan I feel this is a highly complex case requiring extensive working including EKG/ Rhythm strip, Xray/CT/US, Blood/urine lab work, repeat exams while in ED, and administration of strong opiates/narcotics for pain control, admission to hospital or close patient follow up. Diagnosis - cyclical vomiting Stable and discharged to home with Rx Pepcid, Reglan. Followup with PMD/GI. Return to ED if symptoms recur or worsen Labs Test 09/09/18 22:20 09/09/18 22:57 White Blood Count 9.5 K/UL (4.8-10.8) Red Blood Count 5.09 M/UL (4.20-5.40) Hemoglobin 14.0 G/DL (12.0-16.0) Hematocrit 42.5 % (37.0-47.0) Mean Corpuscular Volume 84 FL (80-99) Mean Corpuscular Hemoglobin 27.6 PG (27.0-31.0) Mean Corpuscular Hemoglobin Concent 33.0 G/DL (32.0-36.0) Red Cell Distribution Width 11.6 % (11.6-14.8) Platelet Count 170 K/UL (150-450) Mean Platelet Volume 7.9 FL (6.5-10.1) Neutrophils (%) (Auto) 69.9 % (45.0-75.0) Lymphocytes (%) (Auto) 25.7 % (20.0-45.0) Monocytes (%) (Auto) 3.6 % (1.0-10.0) Eosinophils (%) (Auto) 0.2 % (0.0-3.0) Basophils (%) (Auto) 0.7 % (0.0-2.0) Sodium Level 136 MMOL/L (136-145) Potassium Level 4.0 MMOL/L (3.5-5.1) Chloride Level 100 MMOL/L (98-107) Carbon Dioxide Level 22 MMOL/L (21-32) Anion Gap 14 mmol/L (5-15) Blood Urea Nitrogen 6 mg/dL (7-18) Creatinine 0.7 MG/DL (0.55-1.30) Estimat Glomerular Filtration Rate > 60 mL/min (>60) Glucose Level 126 MG/DL (74-106) Calcium Level 9.8 MG/DL (8.5-10.1) Total Bilirubin 0.5 MG/DL (0.2-1.0) Aspartate Amino Transf (AST/SGOT) 17 U/L (15-37) Alanine Aminotransferase (ALT/SGPT) 18 U/L (12-78) Alkaline Phosphatase 90 U/L (46-116) Total Protein 9.1 G/DL (6.4-8.2) Albumin 3.8 G/DL (3.4-5.0) Globulin 5.3 g/dL Albumin/Globulin Ratio 0.7 (1.0-2.7) Lipase 95 U/L (73-393) Human Chorionic Gonadotropin, Quant < 1 mIU/mL (1-6) Urine Color Yellow Urine Appearance Clear Urine pH 6 (4.5-8.0) Urine Specific [place] 1.025 (1.005-1.035) Urine Protein 2+ (NEGATIVE) Urine Glucose (UA) Negative (NEGATIVE) Urine Ketones 4+ (NEGATIVE) Urine Blood 5+ (NEGATIVE) Urine Nitrite Negative (NEGATIVE) Urine Bilirubin Negative (NEGATIVE) Urine Urobilinogen Normal MG/DL (0.0-1.0) Urine Leukocyte Esterase 1+ (NEGATIVE) Urine RBC 40-60 /HPF (0 - 2) Urine WBC 0-2 /HPF (0 - 2) Urine Squamous Epithelial Cells Many /LPF (NONE/OCC) Urine Bacteria Few /HPF (NONE) Urine HCG, Qualitative Negative (NEGATIVE) Urine Opiates Screen Negative (NEGATIVE) Urine Barbiturates Screen Negative (NEGATIVE) Phencyclidine (PCP) Screen Negative (NEGATIVE) Urine Amphetamines Screen Negative (NEGATIVE) Urine Benzodiazepines Screen Negative (NEGATIVE) Urine Cocaine Screen Negative (NEGATIVE) Urine Marijuana (THC) Screen Positive (NEGATIVE) CT/MRI/US Diagnostic Results CT/MRI/US Diagnostic Results : Imaging Test Ordered: CT a/P Impression no acute process Last Vital Signs Date Time Temp Pulse Resp B/P (MAP) Pulse Ox O2 Delivery O2 Flow Rate FiO2 09/10/18 01:08 98.2 68 16 150/85 100 Room Air Status: improved Disposition: HOME, SELF-CARE Condition: Stable Scripts Famotidine (PEPCID AC) 20 Mg Tablet 20 MG PO DAILY for 30 Days, TAB Prov: Dieudonne Tomlin MD 09/10/18 Metoclopramide Hcl* (REGLAN*) 10 Mg Tablet 10 MG ORAL THREE TIMES A DAY, #30 TAB Prov: Dieudonne Tomlin MD 09/10/18 Referrals: [facility],REFERRING (PCP) Dimitry Norris MD, Mehrdad MD Patient Instructions: Nausea and Vomiting, Adult, [id number] Dieudonne Tomlin MD Sep 10, 2018 01:32
--- NOTE | 2018-09-10 08:24 | Diagnostic Imaging Report ---
Clinical Indication: Abdominal pain for one week Technique: No oral contrast utilized, per emergency room physician request IV administration nonionic contrast. Venous phase spiral acquisition obtained through the abdomen and pelvis. Multiplanar reconstructions were generated. Total dose length product 988 mGycm. CTDIvol(s) 18.84 mGy. Dose reduction achieved using automated exposure control Comparison: 05/02/2018 noncontrast study Findings: The appendix is not definitely demonstrated. No definite evidence of appendicitis. There are are a few colonic diverticula. No evidence of diverticulitis. No small bowel distention. No free or loculated intraperitoneal gas or fluid is evident. Distal esophagus, stomach, duodenum are unremarkable. Previously demonstrated pelvic cul-de-sac fluid is not evident currently. The liver is somewhat enlarged, as previously. Gallbladder, bile ducts, pancreas, spleen, adrenals, right kidney are unremarkable. Left kidney demonstrates a few subcentimeter low-attenuation lesions which are too small to characterize. No retroperitoneal or mesenteric mass or adenopathy. No pelvic mass or adenopathy. Uterus and ovaries are unremarkable. The included lung bases are clear. The bones are unremarkable. Small right abdominal wall muscular defect is again demonstrated, likely related to prior incision, possibly an appendectomy scar. No significant interim change Impression: No acute abnormality Colonic diverticulosis. No evidence of diverticulitis Mild hepatomegaly This agrees with the preliminary interpretation provided overnight by [facility] teleradiology service. The CT scanner at [facility] is accredited by the [employer] and the scans are performed using protocols designed to limit radiation exposure to as low as reasonably achievable to attain images of sufficient resolution adequate for diagnostic evaluation.
== END 2018-09-10 01:09 | disposition home or self-care (01) ==
LOC: EMR 22:00
DX: G43.A0 Cyclical vomiting, in migraine, not intractable (principal); K21.9 Gastro-esophageal reflux disease without esophagitis; I10 Essential (primary) hypertension; Z88.0 Allergy status to penicillin
CPT/HCPCS: 36415; 74177; 80053; 80307; 81003; 81025; 83690; 84702; 85025; 96361; 96374; 96375; 96376; 99284; J2270; J2405; J2765; Q9967; S0028

== ENCOUNTER 2018-11-15 09:01 | Emergency (ER) | payer MEDICAID ==
[~2018-11-15] VITALS: Ht 167.6 cm; Wt 90.7 kg
[2018-11-15] MEDS ORDERED: UNOBMED (09:08)
--- NOTE | 2018-11-15 09:15 | NUR ---
ED Nurse Note: Patient came from home, AAO X4, she walked in by her self, was complaining of N/V/D, and abdominal pain at the upper qudrants. Per pt. pain started at 0100 today. Patient did not take any medication prior arrival. Per patient she had lobster and crabs last night for the dinner.
[2018-11-15] MEDS ORDERED: Capsaicin 0.075% Cream TOPIC ONE (09:30)
[2018-11-15 09:42] LABS: ANION GAP 14 mmol/L (5-15); BLOOD UREA NITROGEN 9 mg/dL (7-18); CALCIUM 9.1 MG/DL (8.5-10.1); CARBON DIOXIDE 22 MMOL/L (21-32); CHLORIDE 102 MMOL/L (98-107); CREATININE 0.8 MG/DL (0.55-1.30); SODIUM 138 MMOL/L (136-145)
[2018-11-15 09:45] LABS: BASOPHILS % (AUTO) 0.7 % (0.0-2.0); HEMOGLOBIN 13.6 G/DL (12.0-16.0); LYMPHOCYTES % (AUTO) 16.1 % (20.0-45.0); MEAN CORPUSCULAR VOLUME 86 FL (80-99); NEUTROPHILS % (AUTO) 81.1 % (45.0-75.0); PLATELET COUNT 262 K/UL (150-450); RED BLOOD COUNT 4.76 M/UL (4.20-5.40); WHITE BLOOD COUNT 7.1 K/UL (4.8-10.8)
[2018-11-15 09:48] LABS: ALANINE AMINOTRANSFERASE 27 U/L (12-78); ALBUMIN 3.9 G/DL (3.4-5.0); ALBUMIN/GLOBULIN RATIO 0.8 (1.0-2.7); ALKALINE PHOSPHATASE 89 U/L (46-116); ASPARTATE AMINO TRANSFERASE 22 U/L (15-37); BILIRUBIN,TOTAL 0.5 MG/DL (0.2-1.0)
[2018-11-15 09:52] VITALS: BP 174/129
[2018-11-15] MEDS ORDERED: Metoclopramide 10mg/2ml Inj IVP ONE (10:00)
[2018-11-15 10:49] LABS: APPEARANCE,URINE CLEAR; BILIRUBIN, URINE NEGATIVE (NEGATIVE); COLOR,URINE PALE YELLOW; GLUCOSE, URINE (UA) NEGATIVE (NEGATIVE); KETONES,URINE 3+ (NEGATIVE); LEUKOCYTE ESTERASE ,URINE NEGATIVE (NEGATIVE); NITRITE,URINE NEGATIVE (NEGATIVE); PH,URINE 7 (4.5-8.0); PROTEIN,URINE 2+ (NEGATIVE); UROBILINOGEN,URINE NORMAL MG/DL (0.0-1.0)
--- NOTE | 2018-11-15 11:20 | Emergency Room Report ---
History of Present Illness General Chief Complaint: Abdominal Pain Source: Patient Present Illness HPI This patient has a history of cyclic vomiting syndrome. She is seen regularly here at [facility]. She likely has cannabis hyperemesis syndrome given that every single time she presents she has a positive urinalysis for THC. She presents today with the same symptoms. She states the symptoms started 2 days ago. She has recurrent vomiting and epigastric pain. She denies any new symptoms. She denies fever or chills. She denies dysuria or hematuria. She denies headache or neck pain. She has no other complaints. Allergies: Coded Allergies: PENICILLINS (Verified Allergy, Unknown, 11/15/18) Patient History Past Medical History: none, see triage record, HTN, GERD, other - Cyclic vomiting syndrome Social History: Reports: drug use; Denies: smoking, alcohol use Last Menstrual Period: 2016 Reviewed Nursing Documentation: PMH: Agreed; PSxH: Agreed Nursing Documentation-PMH Past Medical History: No History, Except For Hx Hypertension: Yes Hx Cancer: No Hx Gastrointestinal Problems: Yes - GERD Hx Neurological Problems: No Review of Systems All Other Systems: negative except mentioned in HPI Physical Exam Vital Signs Date Time Temp Pulse Resp B/P (MAP) Pulse Ox O2 Delivery O2 Flow Rate FiO2 11/15/18 09:05 97.7 52 16 151/100 100 Room Air Sp02 EP Interpretation: reviewed, normal General Appearance: no apparent distress, alert, GCS 15, non-toxic Head: normocephalic, atraumatic Eyes: bilateral eye normal inspection, bilateral eye PERRL ENT: hearing grossly normal, normal pharynx, no angioedema, normal voice Neck: full range of motion, supple/symm/no masses Respiratory: chest non-tender, lungs clear, normal breath sounds, no respiratory distress, no retraction, no accessory muscle use, speaking full sentences Cardiovascular #1: regular rate, rhythm, no edema Gastrointestinal: normal bowel sounds, soft, non-distended, no guarding, no rebound, tenderness - TTP diffusely, worse epigastrium Rectal: deferred Musculoskeletal: back normal, gait/station normal, normal range of motion, non- tender Neurologic: alert, oriented x3, responsive, motor strength/tone normal, sensory intact, speech normal Psychiatric: judgement/insight normal, memory normal, mood/affect normal, no suicidal/homicidal ideation Skin: normal color, no rash, warm/dry, well hydrated Medical Decision Making Diagnostic Impression: Primary Impression: Cyclic vomiting syndrome Additional Impression: Cannabis hyperemesis syndrome concurrent with and due to cannabis abuse ER Course This patient has known cyclic vomiting syndrome. She did respond to treatment with Reglan, capsaicin cream and Pepcid IV. I suspect this patient has cannabis hyperemesis syndrome. The patient always has a positive THC on urinalysis and presents with classic cannabis hyperemesis syndrome. The patient 's evaluation is benign. Laboratory workup is unremarkable. The patient's symptoms resolved once the cyclic vomiting was aborted. The patient was given the tube of Capsaicin cream and educated on cannabis hyperemesis syndrome. The patient states she feels well and can go home. She is given close return precautions and follow-up instructions. Laboratory Tests Test 11/15/18 09:10 11/15/18 10:25 White Blood Count 7.1 K/UL (4.8-10.8) Red Blood Count 4.76 M/UL (4.20-5.40) Hemoglobin 13.6 G/DL (12.0-16.0) Hematocrit 41.0 % (37.0-47.0) Mean Corpuscular Volume 86 FL (80-99) Mean Corpuscular Hemoglobin 28.5 PG (27.0-31.0) Mean Corpuscular Hemoglobin Concent 33.2 G/DL (32.0-36.0) Red Cell Distribution Width 12.0 % (11.6-14.8) Platelet Count 262 K/UL (150-450) Mean Platelet Volume 6.8 FL (6.5-10.1) Neutrophils (%) (Auto) 81.1 % (45.0-75.0) H Lymphocytes (%) (Auto) 16.1 % (20.0-45.0) L Monocytes (%) (Auto) 2.0 % (1.0-10.0) Eosinophils (%) (Auto) 0.0 % (0.0-3.0) Basophils (%) (Auto) 0.7 % (0.0-2.0) Sodium Level 138 MMOL/L (136-145) Potassium Level 4.0 MMOL/L (3.5-5.1) Chloride Level 102 MMOL/L (98-107) Carbon Dioxide Level 22 MMOL/L (21-32) Anion Gap 14 mmol/L (5-15) Blood Urea Nitrogen 9 mg/dL (7-18) Creatinine 0.8 MG/DL (0.55-1.30) Estimate Glomerular Filtration Rate > 60 mL/min (>60) Glucose Level 155 MG/DL (74-106) H Calcium Level 9.1 MG/DL (8.5-10.1) Total Bilirubin 0.5 MG/DL (0.2-1.0) Aspartate Amino Transferase (AST) 22 U/L (15-37) Alanine Aminotransferase (ALT) 27 U/L (12-78) Alkaline Phosphatase 89 U/L (46-116) Total Protein 8.5 G/DL (6.4-8.2) H Albumin 3.9 G/DL (3.4-5.0) Globulin 4.6 g/dL Albumin/Globulin Ratio 0.8 (1.0-2.7) L Lipase 92 U/L (73-393) Urine Color Pale yellow Urine Appearance Clear Urine pH 7 (4.5-8.0) Urine Specific [place] 1.010 (1.005-1.035) Urine Protein 2+ (NEGATIVE) H Urine Glucose (UA) Negative (NEGATIVE) Urine Ketones 3+ (NEGATIVE) H Urine Blood 4+ (NEGATIVE) H Urine Nitrite Negative (NEGATIVE) Urine Bilirubin Negative (NEGATIVE) Urine Urobilinogen Normal MG/DL (0.0-1.0) Urine Leukocyte Esterase Negative (NEGATIVE) Urine RBC 30-40 /HPF (0 - 2) H Urine WBC 0-2 /HPF (0 - 2) Urine Squamous Epithelial Cells Many /LPF (NONE/OCC) H Urine Bacteria Few /HPF (NONE) Urine HCG, Qualitative Negative (NEGATIVE) Urine Opiates Screen Negative (NEGATIVE) Urine Barbiturates Screen Negative (NEGATIVE) Phencyclidine (PCP) Screen Negative (NEGATIVE) Urine Amphetamines Screen Negative (NEGATIVE) Urine Benzodiazepines Screen Negative (NEGATIVE) Urine Cocaine Screen Negative (NEGATIVE) Urine Marijuana (THC) Screen Positive (NEGATIVE) H Last Vital Signs Date Time Temp Pulse Resp B/P (MAP) Pulse Ox O2 Delivery O2 Flow Rate FiO2 11/15/18 09:52 54 15 174/129 100 Room Air 11/15/18 09:05 97.7 Status: improved Disposition: HOME, SELF-CARE Condition: Improved Referrals: NON PHYSICIAN (PCP) Jeana Vizcarra DO Nov 15, 2018 11:20
--- NOTE | 2018-11-15 11:26 | NUR ---
ED Nurse Note: Pt. on bed sleeping, calmlly no s/s of acute disstres noted
[2018-11-15 11:54] VITALS: BP 129/66
--- NOTE | 2018-11-15 11:56 | NUR ---
ED Nurse Note: pt sleeping in bed comfortably, arousable to light shake and name, no s/s distress, vss, NSR on air sampling and monitoring, pt denies pain at this time, bed lowest position w/ siderail x2, pt advised to notify staff if needed assist.
[2018-11-15] MEDS ORDERED: PEPCID AC20 M2 PO (12:51)
[2018-11-15 13:00] VITALS: BP 124/65
[2018-11-15 13:20] VITALS: BP 124/65
--- NOTE | 2018-11-15 13:20 | NUR ---
ED Nurse Note: PT. AAOX4. AMBULATORY. LEFT WITH STEADY GAIT. PT. EDUCATION DONE REGARDING D/C PAPERS AND PRESCRIPTIONS. PT. VERBALIZED THE UNDERSTANDING OF THE TEACHING. LEFT WITH ALL BELONGINGS. ID ARMBAND REMOVED. IV ACCESS REMOVED. VSS. NO S/S OF ACUTE DISTRESS NOTED AT THIS TIME
== END 2018-11-15 13:20 | disposition home or self-care (01) ==
LOC: EMR 09:45
DX: G43.A0 Cyclical vomiting, in migraine, not intractable (principal); F12.10 Cannabis abuse, uncomplicated
CPT/HCPCS: 36415; 80053; 80307; 81003; 81025; 83690; 85025; 96361; 96374; 96375; 99284; J2405; J2765; S0028

== ENCOUNTER 2019-01-01 11:16 | Emergency (ER) | payer MEDICAID ==
[~2019-01-01] VITALS: Ht 160 cm; Wt 90.7 kg
[~2019-01-01 11:16] MED LIST changes: +UNOBMED
[2019-01-01 11:40] VITALS: BP 164/101
--- NOTE | 2019-01-01 11:40 | NUR ---
ED Nurse Note: Patient came from home complaining of severe abdominal pain, N/V since this morning. AAO x4, VSS at this time. Skin is dry, intact, warm to touch.
[2019-01-01] MEDS ORDERED: Metoclopramide 10mg/2ml Inj IVP ONE (11:45)
[2019-01-01] MEDS ORDERED: Morphine Sulfate 4mg/ml Inj (IV USE ONLY) IVP ONE (11:45)
[2019-01-01] MEDS ORDERED: DiphenhydrAMINE 50mg/ml Inj IVP ONE (11:45)
[2019-01-01 12:24] LABS: BASOPHILS % (AUTO) 0.7 % (0.0-2.0); EOSINOPHILS % (AUTO) 0.2 % (0.0-3.0); HEMATOCRIT 43.7 % (37.0-47.0); HEMOGLOBIN 14.1 G/DL (12.0-16.0); LYMPHOCYTES % (AUTO) 26.3 % (20.0-45.0); MEAN CORPUSCULAR VOLUME 86 FL (80-99); MONOCYTES % (AUTO) 4.2 % (1.0-10.0); NEUTROPHILS % (AUTO) 68.6 % (45.0-75.0); PLATELET COUNT 284 K/UL (150-450); RED BLOOD COUNT 5.11 M/UL (4.20-5.40); RED CELL DISTRIBUTION WIDTH 12.1 % (11.6-14.8); WHITE BLOOD COUNT 6.1 K/UL (4.8-10.8)
[2019-01-01 12:37] LABS: ANION GAP 16 mmol/L (5-15); BLOOD UREA NITROGEN 12 mg/dL (7-18); CALCIUM 9.8 MG/DL (8.5-10.1); CARBON DIOXIDE 23 MMOL/L (21-32); CHLORIDE 102 MMOL/L (98-107); CREATININE 0.9 MG/DL (0.55-1.30); POTASSIUM 3.9 MMOL/L (3.5-5.1); SODIUM 141 MMOL/L (136-145)
[2019-01-01 12:42] LABS: ALANINE AMINOTRANSFERASE 23 U/L (12-78); ALBUMIN 4.1 G/DL (3.4-5.0); ALBUMIN/GLOBULIN RATIO 0.9 (1.0-2.7); ALKALINE PHOSPHATASE 91 U/L (46-116); ASPARTATE AMINO TRANSFERASE 17 U/L (15-37); BILIRUBIN,TOTAL 0.4 MG/DL (0.2-1.0)
--- NOTE | 2019-01-01 12:54 | Diagnostic Imaging Report ---
EXAM: XR Chest, 1 View CLINICAL HISTORY: ABD PAIN TECHNIQUE: Frontal view of the chest. COMPARISON: No relevant prior studies available. FINDINGS: Lungs: No consolidation. Pleural space: Unremarkable. No pneumothorax. Heart: Mild cardiomegaly. Mediastinum: Unremarkable. Bones/joints: No acute fracture. IMPRESSION: No acute cardiopulmonary disease.
--- NOTE | 2019-01-01 13:27 | Diagnostic Imaging Report ---
EXAM: XR Abdomen, 1 View CLINICAL HISTORY: ABD PAIN TECHNIQUE: Frontal supine view of the abdomen/pelvis. COMPARISON: No relevant prior studies available. FINDINGS: Gastrointestinal tract: Unremarkable. Bones/joints: No acute fracture. IMPRESSION: Unremarkable film.
--- NOTE | 2019-01-01 16:17 | Emergency Room Report ---
History of Present Illness General Chief Complaint: Nausea, Vomiting, and Diarrhea Source: Patient Present Illness HPI Patient presents with epigastric pain and vomiting. This started just today. She ate some spicy food yesterday. She's had positive cyclic vomiting and epigastric pain in the past. She unable to keep down liquids at this time. The pain is severe 10/10 and burning and epigastric and nonradiating. She denies THC and also alcohol consumption. She denies vomiting blood or coffee grounds. There is no melena. No fevers, chills, chest pain, palpitations, nausea, vomiting, diarrhea, dysuria , shortness of breath, depression, visual changes, headache. Allergies: Coded Allergies: PENICILLINS (Verified Allergy, Unknown, 01/03/19) Patient History Past Medical History: see triage record Social History: Denies: smoking, alcohol use, drug use - THC in past Social History Narrative From home Last Menstrual Period: 2016 Now: No Reviewed Nursing Documentation: PMH: Agreed; PSxH: Agreed Nursing Documentation-PMH Past Medical History: No History, Except For Hx Hypertension: Yes Hx Cancer: No Hx Gastrointestinal Problems: Yes - GERD Hx Neurological Problems: No Review of Systems All Other Systems: negative except mentioned in HPI Physical Exam Vital Signs Date Time Temp Pulse Resp B/P (MAP) Pulse Ox O2 Delivery O2 Flow Rate FiO2 01/01/19 11:21 108 22 164/101 95 Room Air 01/01/19 11:40 98.0 Sp02 EP Interpretation: reviewed, normal General Appearance: GCS 15, mild distress Head: normocephalic Eyes: bilateral eye normal inspection, bilateral eye PERRL ENT: moist mucus membranes, other - Retching Neck: supple Respiratory: lungs clear, normal breath sounds Cardiovascular #1: regular rate, rhythm Cardiovascular #2: 2+ radial (R) Gastrointestinal: normal inspection, no mass, non-distended, no guarding, no rebound, tenderness - Epigastric, decreased bowel sounds Genitourinary: no CVA tenderness Musculoskeletal: back normal, gait/station normal, normal range of motion Neurologic: alert, oriented x3, grossly normal Psychiatric: mood/affect normal Skin: normal inspection, warm/dry Medical Decision Making Diagnostic Impression: Primary Impression: Nausea with vomiting Qualified Codes: R11.2 - Nausea with vomiting, unspecified Additional Impression: Gastritis Qualified Codes: K29.00 - Acute gastritis without bleeding ER Course Patient with history of cyclic vomiting presents with vomiting and epigastric pain. Differential includes cyclic vomiting, gastritis, GERD, gastroenteritis, pancreatitis amongst others. Evaluation will be with labs. Treatment will be with IV hydration,Reglan, Pepcid, morphine and Benadryl. CBC and CMP normal. Lipase normal. Still with nausea. Zofran given. Improved. Wants to go home. Abdomen is soft and nontender. Tolerating oral intake. Discussed treatment plan with patient. Patient stable for outpatient observation and treatment. Laboratory Tests Test 01/01/19 12:10 White Blood Count 6.1 K/UL (4.8-10.8) Red Blood Count 5.11 M/UL (4.20-5.40) Hemoglobin 14.1 G/DL (12.0-16.0) Hematocrit 43.7 % (37.0-47.0) Mean Corpuscular Volume 86 FL (80-99) Mean Corpuscular Hemoglobin 27.7 PG (27.0-31.0) Mean Corpuscular Hemoglobin Concent 32.4 G/DL (32.0-36.0) Red Cell Distribution Width 12.1 % (11.6-14.8) Platelet Count 284 K/UL (150-450) Mean Platelet Volume 7.2 FL (6.5-10.1) Neutrophils (%) (Auto) 68.6 % (45.0-75.0) Lymphocytes (%) (Auto) 26.3 % (20.0-45.0) Monocytes (%) (Auto) 4.2 % (1.0-10.0) Eosinophils (%) (Auto) 0.2 % (0.0-3.0) Basophils (%) (Auto) 0.7 % (0.0-2.0) Sodium Level 141 MMOL/L (136-145) Potassium Level 3.9 MMOL/L (3.5-5.1) Chloride Level 102 MMOL/L (98-107) Carbon Dioxide Level 23 MMOL/L (21-32) Anion Gap 16 mmol/L (5-15) H Blood Urea Nitrogen 12 mg/dL (7-18) Creatinine 0.9 MG/DL (0.55-1.30) Estimate Glomerular Filtration Rate > 60 mL/min (>60) Glucose Level 140 MG/DL (74-106) H Calcium Level 9.8 MG/DL (8.5-10.1) Total Bilirubin 0.4 MG/DL (0.2-1.0) Aspartate Amino Transferase (AST) 17 U/L (15-37) Alanine Aminotransferase (ALT) 23 U/L (12-78) Alkaline Phosphatase 91 U/L (46-116) Total Protein 8.9 G/DL (6.4-8.2) H Albumin 4.1 G/DL (3.4-5.0) Globulin 4.8 g/dL Albumin/Globulin Ratio 0.9 (1.0-2.7) L Lipase 102 U/L (73-393) Last Vital Signs Date Time Temp Pulse Resp B/P (MAP) Pulse Ox O2 Delivery O2 Flow Rate FiO2 01/01/19 16:29 98.4 78 18 146/76 100 Room Air Status: improved Disposition: HOME, SELF-CARE Condition: Improved Scripts Hydrocodone Bit/Acetaminophen 5-325* (NORCO 5-325*) 1 Each Tablet 1 TAB ORAL Q6H PRN for For Pain, #10 TAB 0 Refills Prov: Reynaldo Saunders MD 01/01/19 Omeprazole (OMEPRAZOLE) 20 Mg Capsule.dr 20 MG ORAL DAILY, #30 CAP Prov: Reynaldo Saunders MD 01/01/19 Promethazine HCl (Promethegan) 25 Mg Supp.rect 25 MG RECTAL Q8HR PRN for Nausea & Vomiting, #6 SUPP Prov: Reynaldo Saunders MD 01/01/19 Promethazine Hcl* (PHENERGAN*) 25 Mg Tablet 25 MG ORAL Q8HR PRN for Nausea & Vomiting, #10 TAB 0 Refills Prov: Reynaldo Saunders MD 01/01/19 Referrals: [facility],REFERRING (PCP) Reynaldo Saunders MD Jan 01, 2019 16:17
[2019-01-01] MEDS ORDERED: NORCO 5-325 TA1 EACH ORAL (16:21)
[2019-01-01] MEDS ORDERED: OMEPRAZOLE20 M2 ORAL (16:21)
[2019-01-01] MEDS ORDERED: PHENERGAN25 M1 ORAL (16:21)
[2019-01-01] MEDS ORDERED: PHENERGAN SUPP25 MG RECTAL (16:21)
[2019-01-01 16:29] VITALS: BP 146/76
--- NOTE | 2019-01-01 16:30 | NUR ---
ER DISCHARGE NOTE: Patient is cleared to be discharged per ERMD, pt is aox4, on room air, with stable vital signs. pt was given dc and prescription instructions, pt was able to verbalize understanding, pt id band and iv site removed without complications. pt is able to ambulate with steady gait. pt took all belongings.
== END 2019-01-01 16:38 | disposition home or self-care (01) ==
LOC: EMR 11:26
DX: K29.70 Gastritis, unspecified, without bleeding (principal); I10 Essential (primary) hypertension; K21.9 Gastro-esophageal reflux disease without esophagitis; Z88.0 Allergy status to penicillin
CPT/HCPCS: 36415; 71045; 74018; 80053; 83690; 85025; 96361; 96374; 96375; 99284; J1200; J2270; J2405; J2765; S0028

== ENCOUNTER 2019-01-03 09:22 | Emergency (ER) | payer MEDICAID ==
[~2019-01-03] VITALS: Ht 167.6 cm; Wt 95.3 kg
[~2019-01-03 09:22] MED LIST changes: +NORCO 5-325 TA1 EACH ORAL; +OMEPRAZOLE20 M2 ORAL; +PHENERGAN SUPP25 MG RECTAL; +PHENERGAN25 M1 ORAL
--- NOTE | 2019-01-03 09:32 | NUR ---
ED Nurse Note: BEDSIDE TRIAGE DONE. UNABLE TO GET VS AT THS TIME DUE TO PT VOMITING. REPORT GIVEN TO KENDRA WOOD.
[2019-01-03 09:45] VITALS: BP 180/114
[2019-01-03] MEDS ORDERED: Metoclopramide 10mg/2ml Inj IVP ONE (09:45)
[2019-01-03] MEDS ORDERED: Capsaicin 0.075% Cream TOPIC ONE (09:45)
--- NOTE | 2019-01-03 09:48 | NUR ---
ED Nurse Note: Pt came into the Er w/ complaints of abdominal pain, nausea, vomiting x 2 days. Pt is complaining of 10/10 abdominal pain. Non radiating. Pt is projectile vomiting w/ yellow emesis. Pt states that she was here 2 days ago. Pt is A + O x4. Ambulatory. Skin warm to touch. Pt appeared in the ED w/ diaphoresis noted on the face.
[2019-01-03 09:55] LABS: BASOPHILS % (AUTO) 0.4 % (0.0-2.0); EOSINOPHILS % (AUTO) 0.8 % (0.0-3.0); HEMATOCRIT 39.4 % (37.0-47.0); HEMOGLOBIN 12.7 G/DL (12.0-16.0); LYMPHOCYTES % (AUTO) 37.6 % (20.0-45.0); MEAN CORPUSCULAR VOLUME 86 FL (80-99); MONOCYTES % (AUTO) 5.6 % (1.0-10.0); NEUTROPHILS % (AUTO) 55.5 % (45.0-75.0); PLATELET COUNT 262 K/UL (150-450); RED BLOOD COUNT 4.58 M/UL (4.20-5.40); RED CELL DISTRIBUTION WIDTH 12.3 % (11.6-14.8); WHITE BLOOD COUNT 7.2 K/UL (4.8-10.8)
--- NOTE | 2019-01-03 09:57 | Emergency Room Report ---
History of Present Illness General Chief Complaint: Abdominal Pain Source: Patient Present Illness HPI This patient is well-known to [facility]. She has a history of cyclic vomiting syndrome and gastritis. She has been diagnosed with cannabis hyperemesis syndrome in the past and every UA tests positive for THC. The patient states that she has not been using marijuana and that this is her gastritis flare. She states that the marijuana is positive for 6 months and that's why her urinalysis are positive. The patient was here 2 days ago for the same symptoms. She continues to have epigastric pain, nausea and vomiting. She states her symptoms are unchanged. She is very angry when she sees that it is me that is going to care for her. This was immediately after I walked in to the patient's room. She immediately states that I tell her that she needs to stop using marijuana to stop the cyclic vomiting syndrome. She states that she isn't using marijuana and that this isn't the problem. She is very agitated and hostile when I immediately went into the room. She states that she "knew I was going to be the physician whenever the nurse brought in the capsaicin cream." She seems very hostile and un-interested in the treatments I have to offer other than narcotic pain medications. Allergies: Coded Allergies: PENICILLINS (Verified Allergy, Unknown, 01/03/19) Patient History Past Medical History: see triage record, HTN, GERD Social History: Denies: smoking, alcohol use, drug use Last Menstrual Period: CONTROL LEFT ARM 2017 Reviewed Nursing Documentation: PMH: Agreed; PSxH: Agreed Nursing Documentation-PMH Past Medical History: No History, Except For Hx Hypertension: Yes Hx Cancer: No Hx Gastrointestinal Problems: Yes - GERD Hx Neurological Problems: No Review of Systems All Other Systems: negative except mentioned in HPI Physical Exam Vital Signs Date Time Temp Pulse Resp B/P (MAP) Pulse Ox O2 Delivery O2 Flow Rate FiO2 01/03/19 09:30 98.1 73 19 180/114 100 Room Air 01/03/19 09:45 100 Sp02 EP Interpretation: reviewed, normal General Appearance: alert, GCS 15, non-toxic Head: normocephalic, atraumatic Eyes: bilateral eye normal inspection, bilateral eye PERRL ENT: hearing grossly normal, normal pharynx, no angioedema, normal voice Neck: full range of motion, supple/symm/no masses Respiratory: chest non-tender, lungs clear, normal breath sounds, no respiratory distress, no retraction, no accessory muscle use, speaking full sentences Cardiovascular #1: regular rate, rhythm, no edema Gastrointestinal: normal bowel sounds, soft, non-distended, no guarding, no rebound, tenderness - epigastrium Rectal: deferred Musculoskeletal: back normal, gait/station normal, normal range of motion, non- tender Neurologic: alert, oriented x3, responsive, motor strength/tone normal, sensory intact, speech normal Psychiatric: judgement/insight normal, memory normal, mood/affect normal, no suicidal/homicidal ideation Skin: normal color, no rash, warm/dry, well hydrated Medical Decision Making Diagnostic Impression: Primary Impression: Cyclic vomiting syndrome ER Course This patient has cyclic vomiting syndrome. I believe this patient has cannabis hyperemesis syndrome. The patient denies marijuana use, however, patient's THC on urinalysis is positive. The patient was initially very hostile towards me. She was very defensive. She was given IV fluids, treatment for gastritis and nausea medications. She continued to feel nauseated and had epigastric pain. Finally, she decided to go ahead and allow the nurse to apply the capsaicin cream. She did have resolution of her symptoms after that. I offered the patient admission to the hospital, however, she declined at this time. Patient' s laboratory workup is unremarkable. The patient was again educated on cannabis hyperemesis syndrome. She indicated understanding. She is given close return precautions and follow-up instructions. Laboratory Tests Test 01/03/19 09:34 01/03/19 09:55 White Blood Count 7.2 K/UL (4.8-10.8) Red Blood Count 4.58 M/UL (4.20-5.40) Hemoglobin 12.7 G/DL (12.0-16.0) Hematocrit 39.4 % (37.0-47.0) Mean Corpuscular Volume 86 FL (80-99) Mean Corpuscular Hemoglobin 27.7 PG (27.0-31.0) Mean Corpuscular Hemoglobin Concent 32.2 G/DL (32.0-36.0) Red Cell Distribution Width 12.3 % (11.6-14.8) Platelet Count 262 K/UL (150-450) Mean Platelet Volume 7.2 FL (6.5-10.1) Neutrophils (%) (Auto) 55.5 % (45.0-75.0) Lymphocytes (%) (Auto) 37.6 % (20.0-45.0) Monocytes (%) (Auto) 5.6 % (1.0-10.0) Eosinophils (%) (Auto) 0.8 % (0.0-3.0) Basophils (%) (Auto) 0.4 % (0.0-2.0) Sodium Level 141 MMOL/L (136-145) Potassium Level 4.0 MMOL/L (3.5-5.1) Chloride Level 103 MMOL/L (98-107) Carbon Dioxide Level 23 MMOL/L (21-32) Anion Gap 15 mmol/L (5-15) Blood Urea Nitrogen 10 mg/dL (7-18) Creatinine 0.8 MG/DL (0.55-1.30) Estimate Glomerular Filtration Rate > 60 mL/min (>60) Glucose Level 119 MG/DL (74-106) H Calcium Level 9.2 MG/DL (8.5-10.1) Total Bilirubin 0.3 MG/DL (0.2-1.0) Aspartate Amino Transferase (AST) 21 U/L (15-37) Alanine Aminotransferase (ALT) 31 U/L (12-78) Alkaline Phosphatase 79 U/L (46-116) Total Protein 8.2 G/DL (6.4-8.2) Albumin 3.9 G/DL (3.4-5.0) Globulin 4.3 g/dL Albumin/Globulin Ratio 0.9 (1.0-2.7) L Lipase 120 U/L (73-393) Urine Color Pale yellow Urine Appearance Clear Urine pH 7 (4.5-8.0) Urine Specific [place] 1.010 (1.005-1.035) Urine Protein Negative (NEGATIVE) Urine Glucose (UA) Negative (NEGATIVE) Urine Ketones Negative (NEGATIVE) Urine Blood 4+ (NEGATIVE) H Urine Nitrite Negative (NEGATIVE) Urine Bilirubin Negative (NEGATIVE) Urine Urobilinogen Normal MG/DL (0.0-1.0) Urine Leukocyte Esterase 2+ (NEGATIVE) H Urine RBC 5-10 /HPF (0 - 2) H Urine WBC 2-4 /HPF (0 - 2) Urine Squamous Epithelial Cells Few /LPF (NONE/OCC) Urine Bacteria Few /HPF (NONE) Urine HCG, Qualitative Negative (NEGATIVE) Urine Opiates Screen Negative (NEGATIVE) Urine Barbiturates Screen Negative (NEGATIVE) Phencyclidine (PCP) Screen Negative (NEGATIVE) Urine Amphetamines Screen Negative (NEGATIVE) Urine Benzodiazepines Screen Negative (NEGATIVE) Urine Cocaine Screen Negative (NEGATIVE) Urine Marijuana (THC) Screen Positive (NEGATIVE) H Last Vital Signs Date Time Temp Pulse Resp B/P (MAP) Pulse Ox O2 Delivery O2 Flow Rate FiO2 01/03/19 09:45 98.0 74 21 180/114 100 Room Air 01/03/19 09:45 100 Status: improved Disposition: HOME, SELF-CARE Condition: Improved Jeana Vizcarra DO Jan 03, 2019 09:57
--- NOTE | 2019-01-03 10:02 | NUR ---
ED Nurse Note: Urine has been collected and sent to lab.
[2019-01-03 10:03] LABS: ANION GAP 15 mmol/L (5-15); BLOOD UREA NITROGEN 10 mg/dL (7-18); CALCIUM 9.2 MG/DL (8.5-10.1); CARBON DIOXIDE 23 MMOL/L (21-32); CHLORIDE 103 MMOL/L (98-107); CREATININE 0.8 MG/DL (0.55-1.30); SODIUM 141 MMOL/L (136-145)
[2019-01-03 10:07] LABS: APPEARANCE,URINE CLEAR; BILIRUBIN, URINE NEGATIVE (NEGATIVE); COLOR,URINE PALE YELLOW; GLUCOSE, URINE (UA) NEGATIVE (NEGATIVE); KETONES,URINE NEGATIVE (NEGATIVE); LEUKOCYTE ESTERASE ,URINE 2+ (NEGATIVE); NITRITE,URINE NEGATIVE (NEGATIVE); PH,URINE 7 (4.5-8.0); PROTEIN,URINE NEGATIVE (NEGATIVE); UROBILINOGEN,URINE NORMAL MG/DL (0.0-1.0)
[2019-01-03 10:07] LABS: ALANINE AMINOTRANSFERASE 31 U/L (12-78); ALBUMIN 3.9 G/DL (3.4-5.0); ALBUMIN/GLOBULIN RATIO 0.9 (1.0-2.7); ALKALINE PHOSPHATASE 79 U/L (46-116); ASPARTATE AMINO TRANSFERASE 21 U/L (15-37); BILIRUBIN,TOTAL 0.3 MG/DL (0.2-1.0)
[2019-01-03] MEDS ORDERED: LORazepam Inj 2mg/ml 1ml IV ONE (10:30)
[2019-01-03] MEDS ORDERED: Ketorolac 30mg Inj IV ONE (10:30)
[2019-01-03 11:46] VITALS: BP 161/100
[2019-01-03 12:50] VITALS: BP 165/100
== END 2019-01-03 12:51 | disposition home or self-care (01) ==
LOC: EMR 09:58 → CANBEDREQ 11:58 → EMR 12:51
DX: G43.A0 Cyclical vomiting, in migraine, not intractable (principal); I10 Essential (primary) hypertension; K21.9 Gastro-esophageal reflux disease without esophagitis; Z88.0 Allergy status to penicillin; F12.10 Cannabis abuse, uncomplicated
CPT/HCPCS: 36415; 80053; 80307; 81003; 81025; 83690; 85025; 96361; 96374; 96375; 99284; J1885; J2405; J2765; S0028

== ENCOUNTER 2019-02-08 22:05 | Emergency (ER) | payer MEDICAID ==
[~2019-02-08] VITALS: Ht 167.6 cm; Wt 90.7 kg
[2019-02-08 22:15] VITALS: BP 148/90
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
[2019-02-08] MEDS ORDERED: HYDROcodone/Acetamin 5/325 tab ORAL ONE (22:45)
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
[2019-02-08 23:00] VITALS: BP 148/90
--- NOTE | 2019-02-08 23:00 | NUR ---
ED Nurse Note: Velcro splint applied by EMT, N/V intact.
[2019-02-08] MEDS ORDERED: HYDROCODON-ACE1 EA15 ORAL (23:43)
[2019-02-08] MEDS ORDERED: IBUPROFEN600 MG ORAL (23:43)
[2019-02-08] MEDS ORDERED: Morphine Sulfate 10mg/ml Inj IM ONE (23:45)
[2019-02-09] VITALS: BP 146/84
--- NOTE | 2019-02-09 | NUR ---
ER Nurse Note: All orders completed per ERMD orders. Pt seen, treated, medically cleared for discharge by ERMD. Discharge instructions given with repeat verbazliaion by pt. Instructed pt to follow up with primary care provider within one week. Pt a&ox4, VSS, no signs of distress. Pain meds given; tolerated well. ID band removed. Brace applied by classroom technology coach. Pt left with all belongings with steady gait via own transportation with family member.
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
== END 2019-02-09 | disposition home or self-care (01) ==
LOC: EMR 22:54
DX: S63.601A Unspecified sprain of right thumb, initial encounter (principal); S50.811A Abrasion of right forearm, initial encounter; S39.012A Strain of muscle, fascia and tendon of lower back, initial encounter; V43.52XA Car driver injured in collision with other type car in traffic accident, initial encounter; Y92.410 Unspecified street and highway as the place of occurrence of the external cause; I10 Essential (primary) hypertension; K21.9 Gastro-esophageal reflux disease without esophagitis; Z88.0 Allergy status to penicillin
CPT/HCPCS: 29130; 72020; 73140; 96372; 99284; J2270

== ENCOUNTER 2019-02-25 16:03 | Emergency (ER) | payer MEDICAID ==
[~2019-02-25] VITALS: Ht 170.2 cm; Wt 113.4 kg
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
[2019-02-25 16:20] VITALS: BP 154/71
--- NOTE | 2019-02-25 16:20 | NUR ---
ED Nurse Note: RN confirmed with pharmacist that it is ok to use Haldol 5 mg as IVPB even bottle said for IM use.
--- NOTE | 2019-02-25 16:23 | Emergency Room Report ---
History of Present Illness General Chief Complaint: vomiting Source: Patient Present Illness HPI Patient is a 38-year-old female presented after increased vomiting and diarrhea. Patient reports having acute onset of epigastric pain. She reports having recent vomiting as well as diarrhea which she describes as nonbloody. Patient had prior history of cyclic vomiting syndrome. 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 Patient had crampy pain and predominantly in the epigastric area. This did not radiate. Pain at onset approximately 30 minutes to 1 hour after eating chicken as well as steak and macaroni salad. Allergies: Coded Allergies: PENICILLINS (Verified Allergy, Unknown, 01/03/19) Patient History Past Medical History: see triage record Reviewed Nursing Documentation: PMH: Agreed; PSxH: Agreed Nursing Documentation-PMH Hx Hypertension: Yes Hx Cancer: No Hx Gastrointestinal Problems: Yes - GERD Hx Neurological Problems: No Review of Systems All Other Systems: negative except mentioned in HPI Physical Exam Sp02 EP Interpretation: reviewed, normal General Appearance: alert, GCS 15, mild distress, obese Head: atraumatic ENT: normal ENT inspection, hearing grossly normal, normal voice Neck: normal inspection, full range of motion, supple, no bony tend Respiratory: normal inspection, lungs clear, normal breath sounds, no respiratory distress, no retraction, no wheezing Cardiovascular #1: regular rate, rhythm, no edema Gastrointestinal: normal bowel sounds, non tender, soft, no guarding, no hernia , tenderness - epigastric Genitourinary: no CVA tenderness Musculoskeletal: normal inspection, back normal, normal range of motion Neurologic: normal inspection, alert, responsive, speech normal Psychiatric: normal inspection, judgement/insight normal, mood/affect normal Skin: normal inspection, normal color, no rash Medical Decision Making Diagnostic Impression: Primary Impression: Cyclic vomiting syndrome ER Course Patient presented for abdominal pain. Differential diagnoses included cyclic vomiting syndrome, food poisoning, appendicitis, dysentery, perforated viscus, abdominal aortic aneurysm, viral gastroenteritis among others. Because of complexity of patient's case laboratory testing and imaging studies were ordered. Patient given IV fluids as well as Zofran and Haldol. Patient was given IV Pepcid. Patient was noted to have improvement in her symptoms after rehydration. Patient was noted to have similar symptoms in the past and this appears to be an exacerbation of the patient's chronic abdominal problems. Patient is previously had episodes of cyclic vomiting related to marijuana use . Patient's laboratory testing was unremarkable. Patient was noted to have no evidence of hematemesis. Patient was able to tolerate oral fluids. patient states that she felt much better and wanted to go home. Patient was advised to follow-up with her primary care physician for recheck. Labs Test 02/25/19 16:30 02/25/19 19:00 White Blood Count 9.7 K/UL (4.8-10.8) Red Blood Count 4.90 M/UL (4.20-5.40) Hemoglobin 13.8 G/DL (12.0-16.0) Hematocrit 40.3 % (37.0-47.0) Mean Corpuscular Volume 82 FL (80-99) Mean Corpuscular Hemoglobin 28.1 PG (27.0-31.0) Mean Corpuscular Hemoglobin Concent 34.2 G/DL (32.0-36.0) Red Cell Distribution Width 11.6 % (11.6-14.8) Platelet Count 244 K/UL (150-450) Mean Platelet Volume 6.5 FL (6.5-10.1) Neutrophils (%) (Auto) 67.2 % (45.0-75.0) Lymphocytes (%) (Auto) 29.1 % (20.0-45.0) Monocytes (%) (Auto) 2.5 % (1.0-10.0) Eosinophils (%) (Auto) 0.3 % (0.0-3.0) Basophils (%) (Auto) 0.9 % (0.0-2.0) Sodium Level 140 MMOL/L (136-145) Potassium Level 3.7 MMOL/L (3.5-5.1) Chloride Level 103 MMOL/L (98-107) Carbon Dioxide Level 23 MMOL/L (21-32) Anion Gap 14 mmol/L (5-15) Blood Urea Nitrogen 11 mg/dL (7-18) Creatinine 0.8 MG/DL (0.55-1.30) Estimat Glomerular Filtration Rate > 60 mL/min (>60) Glucose Level 113 MG/DL (74-106) Calcium Level 9.8 MG/DL (8.5-10.1) Total Bilirubin 0.3 MG/DL (0.2-1.0) Aspartate Amino Transf (AST/SGOT) 21 U/L (15-37) Alanine Aminotransferase (ALT/SGPT) 27 U/L (12-78) Alkaline Phosphatase 89 U/L (46-116) Total Protein 8.7 G/DL (6.4-8.2) Albumin 4.2 G/DL (3.4-5.0) Globulin 4.5 g/dL Albumin/Globulin Ratio 0.9 (1.0-2.7) Lipase 121 U/L (73-393) Urine Color Pale yellow Urine Appearance Clear Urine pH 7 (4.5-8.0) Urine Specific [place] 1.005 (1.005-1.035) Urine Protein 2+ (NEGATIVE) Urine Glucose (UA) Negative (NEGATIVE) Urine Ketones 4+ (NEGATIVE) Urine Blood 4+ (NEGATIVE) Urine Nitrite Negative (NEGATIVE) Urine Bilirubin Negative (NEGATIVE) Urine Urobilinogen Normal MG/DL (0.0-1.0) Urine Leukocyte Esterase 1+ (NEGATIVE) Status: improved Disposition: HOME, SELF-CARE Condition: Stable Scripts Famotidine (PEPCID AC) 20 Mg Tablet 20 MG PO DAILY, #30 TAB Prov: Ren Clark MD 02/25/19 Metoclopramide Hcl* (REGLAN*) 10 Mg Tablet 10 MG ORAL THREE TIMES A DAY, #20 TAB Prov: Ren Clark MD 02/25/19 Ren Clark MD February 25, 2019 16:23
[2019-02-25] MEDS ORDERED: Haloperidol Lactate 5 MG in D5W 55 ML IVPB ONE (16:30)
[2019-02-25 16:57] LABS: BASOPHILS % (AUTO) 0.9 % (0.0-2.0); EOSINOPHILS % (AUTO) 0.3 % (0.0-3.0); HEMATOCRIT 40.3 % (37.0-47.0); HEMOGLOBIN 13.8 G/DL (12.0-16.0); LYMPHOCYTES % (AUTO) 29.1 % (20.0-45.0); MEAN CORPUSCULAR VOLUME 82 FL (80-99); MONOCYTES % (AUTO) 2.5 % (1.0-10.0); NEUTROPHILS % (AUTO) 67.2 % (45.0-75.0); PLATELET COUNT 244 K/UL (150-450); RED CELL DISTRIBUTION WIDTH 11.6 % (11.6-14.8); WHITE BLOOD COUNT 9.7 K/UL (4.8-10.8)
[2019-02-25 17:09] LABS: ANION GAP 14 mmol/L (5-15); BLOOD UREA NITROGEN 11 mg/dL (7-18); CALCIUM 9.8 MG/DL (8.5-10.1); CARBON DIOXIDE 23 MMOL/L (21-32); CHLORIDE 103 MMOL/L (98-107); CREATININE 0.8 MG/DL (0.55-1.30); POTASSIUM 3.7 MMOL/L (3.5-5.1); SODIUM 140 MMOL/L (136-145)
[2019-02-25 17:14] LABS: ALANINE AMINOTRANSFERASE 27 U/L (12-78); ALBUMIN 4.2 G/DL (3.4-5.0); ALBUMIN/GLOBULIN RATIO 0.9 (1.0-2.7); ALKALINE PHOSPHATASE 89 U/L (46-116); ASPARTATE AMINO TRANSFERASE 21 U/L (15-37); BILIRUBIN,TOTAL 0.3 MG/DL (0.2-1.0)
--- NOTE | 2019-02-25 18:00 | NUR ---
ED Nurse Note: pt lying in bed on right side with eye closed. no facial grimacing or moaning noted. will wait for the urine sample to be provide.
--- NOTE | 2019-02-25 18:20 | NUR ---
ED Nurse Note: pt wants to take mylanta later. will wait.
[2019-02-25 18:23] VITALS: BP 144/70
[2019-02-25] MEDS ORDERED: D5 1/2NS w/KCl 20mEq 1,000 ML IV SCH (18:30)
[2019-02-25] MEDS ORDERED: PEPCID AC20 M2 PO (18:56)
[2019-02-25] MEDS ORDERED: REGLAN10 MG ORAL (18:56)
--- NOTE | 2019-02-25 19:00 | NUR ---
ED Nurse Note: per Dr. Clark, pt is ok to be discharge after urine test.
[2019-02-25 19:07] LABS: APPEARANCE,URINE CLEAR; BILIRUBIN, URINE NEGATIVE (NEGATIVE); COLOR,URINE PALE YELLOW; GLUCOSE, URINE (UA) NEGATIVE (NEGATIVE); KETONES,URINE 4+ (NEGATIVE); LEUKOCYTE ESTERASE ,URINE 1+ (NEGATIVE); NITRITE,URINE NEGATIVE (NEGATIVE); PH,URINE 7 (4.5-8.0); PROTEIN,URINE 2+ (NEGATIVE); UROBILINOGEN,URINE NORMAL MG/DL (0.0-1.0)
--- NOTE | 2019-02-25 19:11 | NUR ---
HAND-OFF: Report given to KENDRA Summers. endorsed that pending meds and urine test.
--- NOTE | 2019-02-25 19:16 | NUR ---
ED Nurse Note: Received report that patient did not want to take the mylanta when ordered. Patient wanted to take it later according to departing nurse Se beti GARDNER.
[2019-02-25 20:48] VITALS: BP 144/70
--- NOTE | 2019-02-25 20:48 | NUR ---
ED Nurse Note: Patient cleared for discharge, no s/s of acute distress. patient is A&Ox4, ambulatory with steady gait and vital signs are within normal range. Patient ID band was removed, IV removed. Patient verbalized understanding of discharge instructions. Patient departed with all belongings to personal vehicle, accompanied by her .
--- NOTE | 2019-02-26 11:10 | Diagnostic Imaging Report ---
Indication: Chest pain Comparison: 01/01/2019 A single view chest radiograph was obtained. Findings: Cardiomediastinal appearance is within normal limits for age. The lungs are clear. Pulmonary vascularity is appropriate. The diaphragmatic contour is smooth and costophrenic angles are sharp. No pleural effusions are identified. The bones are unremarkable. Impression: No acute findings
== END 2019-02-25 20:48 | disposition home or self-care (01) ==
LOC: EMR 17:11
DX: G43.A0 Cyclical vomiting, in migraine, not intractable (principal); I10 Essential (primary) hypertension; K21.9 Gastro-esophageal reflux disease without esophagitis; Z88.0 Allergy status to penicillin
CPT/HCPCS: 36415; 71045; 80053; 81003; 81025; 83690; 85025; 87086; 96361; 96365; 96366; 96375; 99284; J1630; J2405; S0028

== ENCOUNTER 2019-07-31 06:13 | Emergency (ER) | payer MEDICAID ==
[~2019-07-31] VITALS: Ht 167.6 cm; Wt 90.7 kg
[2019-07-31] MEDS ORDERED: D5NS 1,000 ML IV ONE (06:30)
--- NOTE | 2019-07-31 06:32 | NUR ---
ED Nurse Note: Pt ambulated to ED from work c/o N/V since 399, pt reports vommitting x4. VSS. Pt is A&Ox4.
--- NOTE | 2019-07-31 06:40 | Emergency Room Report ---
History of Present Illness General Chief Complaint: Nausea, Vomiting, and Diarrhea Source: Patient Present Illness HPI Patient is a 39-year-old female presents after increased nausea and vomiting. Patient reports having onset of symptoms this morning. She reports vomiting approximately 5 times. She reports having some epigastric discomfort associated with some watery diarrhea. She thinks that she may have eaten some bad food after eating some beef jerky as well as some Twinkies. Patient denies any fever. She reports having prior appendectomy as well as D&C x2. She denies any fever. She denies headache. Reports having continued nausea. She had prior history of cannabis induced hyperemesis but states that she did smoke earlier in the day. Allergies: Coded Allergies: PENICILLINS (Verified Allergy, Unknown, 01/03/19) Patient History Past Medical History: other - hyperemesis Past Surgical History: appy, other - dilation and curettage X2 Social History: Reports: smoking Last Menstrual Period: 2016 Now: No : 3 Para: 3 Reviewed Nursing Documentation: PMH: Agreed; PSxH: Agreed Nursing Documentation-PMH Hx Hypertension: Yes Hx Cancer: No Hx Gastrointestinal Problems: Yes - GERD Hx Neurological Problems: No Review of Systems Gastrointestinal: Reports: abdominal pain, diarrhea, nausea, vomiting All Other Systems: negative except mentioned in HPI Physical Exam Vital Signs Date Time Temp Pulse Resp B/P (MAP) Pulse Ox O2 Delivery O2 Flow Rate FiO2 07/31/19 06:20 97.9 80 20 161/94 (116) 100 Room Air Sp02 EP Interpretation: reviewed, normal General Appearance: normal inspection, well appearing, no apparent distress, alert, GCS 15, obese Head: atraumatic ENT: normal ENT inspection, hearing grossly normal, normal voice Neck: normal inspection, full range of motion, supple, no bony tend Respiratory: normal inspection, lungs clear, normal breath sounds, no respiratory distress, no retraction, no wheezing Cardiovascular #1: regular rate, rhythm, no edema Gastrointestinal: normal inspection, normal bowel sounds, non tender, soft, no guarding, no hernia Genitourinary: no CVA tenderness Musculoskeletal: normal inspection, back normal, normal range of motion Neurologic: normal inspection, alert, responsive, speech normal Psychiatric: normal inspection, judgement/insight normal, mood/affect normal Medical Decision Making Diagnostic Impression: Primary Impression: Epigastric pain Additional Impression: Intractable nausea and vomiting ER Course Patient presented for abdominal pain. Differential diagnoses included ischemic bowel, appendicitis, perforated viscus, abdominal aortic aneurysm, inferior myocardial infarction, viral gastroenteritis among others.Because patient's complexity imaging studies, and laboratory testing ordered. Laboratory testing showed . Electrolytes were unremarkable. Lipase was normal White blood count was normal Patient was given IV Haldol for possible marijuana hyperemesis. She has had this several times in the past. Patient was noted to have marked improvement in symptomatology. Patient appears to be stable for close outpatient follow up. Patient is given prescription for acid blockers as well as antiemetics. She was advised to avoid marijuana use. Labs Test 07/31/19 06:50 07/31/19 08:35 White Blood Count 8.6 K/UL (4.8-10.8) Red Blood Count 4.50 M/UL (4.20-5.40) Hemoglobin 12.8 G/DL (12.0-16.0) Hematocrit 39.0 % (37.0-47.0) Mean Corpuscular Volume 87 FL (80-99) Mean Corpuscular Hemoglobin 28.4 PG (27.0-31.0) Mean Corpuscular Hemoglobin Concent 32.8 G/DL (32.0-36.0) Red Cell Distribution Width 11.9 % (11.6-14.8) Platelet Count 201 K/UL (150-450) Mean Platelet Volume 6.8 FL (6.5-10.1) Neutrophils (%) (Auto) 69.0 % (45.0-75.0) Lymphocytes (%) (Auto) 25.5 % (20.0-45.0) Monocytes (%) (Auto) 4.1 % (1.0-10.0) Eosinophils (%) (Auto) 0.4 % (0.0-3.0) Basophils (%) (Auto) 1.0 % (0.0-2.0) Sodium Level 138 MMOL/L (136-145) Potassium Level 4.4 MMOL/L (3.5-5.1) Chloride Level 105 MMOL/L (98-107) Carbon Dioxide Level 24 MMOL/L (21-32) Anion Gap 9 mmol/L (5-15) Blood Urea Nitrogen 13 mg/dL (7-18) Creatinine 0.7 MG/DL (0.55-1.30) Estimat Glomerular Filtration Rate > 60 mL/min (>60) Glucose Level 132 MG/DL (74-106) Calcium Level 8.7 MG/DL (8.5-10.1) Total Bilirubin 0.3 MG/DL (0.2-1.0) Aspartate Amino Transf (AST/SGOT) 40 U/L (15-37) Alanine Aminotransferase (ALT/SGPT) 34 U/L (12-78) Alkaline Phosphatase 77 U/L (46-116) Total Protein 8.0 G/DL (6.4-8.2) Albumin 3.7 G/DL (3.4-5.0) Globulin 4.3 g/dL Albumin/Globulin Ratio 0.9 (1.0-2.7) Lipase 108 U/L (73-393) Urine Color Pale yellow Urine Appearance Clear Urine pH 7 (4.5-8.0) Urine Specific [place] 1.010 (1.005-1.035) Urine Protein Negative (NEGATIVE) Urine Glucose (UA) 3+ (NEGATIVE) Urine Ketones Negative (NEGATIVE) Urine Blood 4+ (NEGATIVE) Urine Nitrite Negative (NEGATIVE) Urine Bilirubin Negative (NEGATIVE) Urine Urobilinogen Normal MG/DL (0.0-1.0) Urine Leukocyte Esterase 1+ (NEGATIVE) Urine RBC 5-10 /HPF (0 - 2) Urine WBC 0-2 /HPF (0 - 2) Urine Squamous Epithelial Cells Few /LPF (NONE/OCC) Urine Bacteria Few /HPF (NONE) Urine Mucus Few /LPF (NONE/OCC) Urine HCG, Qualitative Negative (NEGATIVE) Last Vital Signs Date Time Temp Pulse Resp B/P (MAP) Pulse Ox O2 Delivery O2 Flow Rate FiO2 07/31/19 06:20 97.9 80 20 161/94 (116) 100 Room Air Status: improved Disposition: HOME, SELF-CARE Condition: Stable Scripts Omeprazole (OMEPRAZOLE) 20 Mg Capsule.dr 20 MG ORAL DAILY, #30 CAP Prov: Ren Clark MD 07/31/19 Ondansetron (Zofran) 4 Mg Tablet 4 MG ORAL Q6H PRN for Nausea & Vomiting, #30 TAB 0 Refills Prov: Ren Clark MD 07/31/19 Ren Clark MD Jul 31, 2019 06:40
[2019-07-31] MEDS ORDERED: Haloperidol Lactate 5 MG in D5W 55 ML IVPB ONE (06:45)
[2019-07-31 06:52] VITALS: BP 161/94
[2019-07-31 07:05] LABS: EOSINOPHILS % (AUTO) 0.4 % (0.0-3.0); HEMOGLOBIN 12.8 G/DL (12.0-16.0); LYMPHOCYTES % (AUTO) 25.5 % (20.0-45.0); MEAN CORPUSCULAR VOLUME 87 FL (80-99); MONOCYTES % (AUTO) 4.1 % (1.0-10.0); PLATELET COUNT 201 K/UL (150-450); RED CELL DISTRIBUTION WIDTH 11.9 % (11.6-14.8); WHITE BLOOD COUNT 8.6 K/UL (4.8-10.8)
--- NOTE | 2019-07-31 07:10 | NUR ---
HAND-OFF: Report given to KENDRA Sam.
[2019-07-31 07:15] LABS: ANION GAP 9 mmol/L (5-15); BLOOD UREA NITROGEN 13 mg/dL (7-18); CALCIUM 8.7 MG/DL (8.5-10.1); CARBON DIOXIDE 24 MMOL/L (21-32); CHLORIDE 105 MMOL/L (98-107); CREATININE 0.7 MG/DL (0.55-1.30); SODIUM 138 MMOL/L (136-145)
[2019-07-31 07:19] LABS: ALANINE AMINOTRANSFERASE 34 U/L (12-78); ALBUMIN 3.7 G/DL (3.4-5.0); ALBUMIN/GLOBULIN RATIO 0.9 (1.0-2.7); ALKALINE PHOSPHATASE 77 U/L (46-116); ASPARTATE AMINO TRANSFERASE 40 U/L (15-37); BILIRUBIN,TOTAL 0.3 MG/DL (0.2-1.0)
[2019-07-31 07:20] LABS: POTASSIUM 4.4 MMOL/L (3.5-5.1)
--- NOTE | 2019-07-31 07:31 | NUR ---
ED Nurse Note: I helped pt to the bedside cammode but she was not able to void, I asked if i could straight cath her for a urine sample but she refused. pt is currently sleeping. in stable condition. ERMD aware
[2019-07-31 08:13] VITALS: BP 137/77
--- NOTE | 2019-07-31 08:35 | NUR ---
ED Nurse Note: pt was able to void 200 mL of clear yellow urine using the bedside commode. no foul odor, pt denies dysuria with urination. pt states she is ready to go home but continues to fall asleep in the middle of speaking and appears to be drowsy
[2019-07-31 08:52] LABS: APPEARANCE,URINE CLEAR; BILIRUBIN, URINE NEGATIVE (NEGATIVE); COLOR,URINE PALE YELLOW; GLUCOSE, URINE (UA) 3+ (NEGATIVE); KETONES,URINE NEGATIVE (NEGATIVE); LEUKOCYTE ESTERASE ,URINE 1+ (NEGATIVE); NITRITE,URINE NEGATIVE (NEGATIVE); PH,URINE 7 (4.5-8.0); PROTEIN,URINE NEGATIVE (NEGATIVE); UROBILINOGEN,URINE NORMAL MG/DL (0.0-1.0)
[2019-07-31] MEDS ORDERED: ZOFRAN4 MG ORAL (09:04)
[2019-07-31] MEDS ORDERED: OMEPRAZOLE20 M2 ORAL (09:04)
[2019-07-31 10:17] VITALS: BP 139/62
== END 2019-07-31 10:17 | disposition home or self-care (01) ==
LOC: EMR 06:35
DX: R11.2 Nausea with vomiting, unspecified (principal); R10.13 Epigastric pain; Z88.0 Allergy status to penicillin; I10 Essential (primary) hypertension; F17.200 Nicotine dependence, unspecified, uncomplicated; K21.9 Gastro-esophageal reflux disease without esophagitis
CPT/HCPCS: 36415; 80053; 81003; 81025; 83690; 85025; 96361; 96374; 96375; J1630; S0028; Z7502; 99284

== ENCOUNTER 2020-01-25 13:02 | Emergency (ER) | payer MEDICAID ==
[~2020-01-25] VITALS: Ht 167.6 cm; Wt 90.7 kg
[~2020-01-25 13:02] MED LIST changes: +ZOFRAN4 MG ORAL
[2020-01-25 13:30] VITALS: BP 172/88
[2020-01-25] MEDS ORDERED: Capsaicin 0.075% Cream TOPIC ONE (13:30)
--- NOTE | 2020-01-25 13:30 | NUR ---
ED Nurse Note: Pt ambulated to ED d/t abdominal pain, nausea and vomiting x6 since this morning. Pt is AOx4, cooperative. Placed on bed, will continue to monitor.
--- NOTE | 2020-01-25 13:59 | NUR ---
ED Nurse Note: Obtained blood and urine specimen, sent to labs.
[2020-01-25] MEDS ORDERED: Haloperidol Lactate 5 MG in D5W 55 ML IVPB ONE (14:15)
--- NOTE | 2020-01-25 14:16 | Emergency Room Report ---
History of Present Illness General Chief Complaint: Abdominal Pain Source: Patient Present Illness HPI Disclaimer: Please note that this report is being documented using DRAGON technology. This can lead to erroneous entry secondary to incorrect interpretation by the dictating instrument. HPI: 39-year-old female history of GERD presents for evaluation of abdominal pain and vomiting. Symptoms began this morning. Multiple episodes of nonbloody nonbilious emesis throughout the day. Denies diarrhea. Reporting upper abdominal cramping. No exacerbating or relieving symptoms. States she was eating a spicy seafood boil last night which likely triggered her symptoms. She takes Zofran and Prilosec for GERD. Has been in the emergency department multiple times with similar presentation. Diagnosed with cyclic vomiting syndrome and continues to smoke marijuana regularly. Denies lower abdominal cramping, dysuria, hematuria. Status post appendectomy. PMH: GERD PSH: Appendectomy, D&C Allergies: Penicillin Social Hx: Regular THC use Allergies: Coded Allergies: PENICILLINS (Verified Allergy, Unknown, 01/03/19) COVID-19 Screening Contact w/high risk pt: No Recent Travel to affected area: No Experienced COVID-19 symptoms?: No Patient History Last Menstrual Period: 08/2017 Now: No Nursing Documentation-PMH Hx Hypertension: Yes Hx Cancer: No Hx Gastrointestinal Problems: Yes - GERD Hx Neurological Problems: No Review of Systems All Other Systems: negative except mentioned in HPI Physical Exam Vital Signs Date Time Temp Pulse Resp B/P (MAP) Pulse Ox O2 Delivery O2 Flow Rate FiO2 01/25/20 13:22 97.7 64 19 172/88 (116) 98 Room Air General: Awake and alert, retching HEENT: NC/AT. EOMI. Cardiovascular: RRR. S1 and S2 normal. No murmur appreciated Resp: Normal work of breathing. No cough, wheezing or crackles appreciated Abdomen: Abdomen is soft, obese, nondistended. Tender palpation in the epigastrium. Negative Tsai's. Some left upper quadrant pain. No lower abdominal tenderness. Skin: Intact. No abrasions, laceration or rash over the exposed skin MSK: Normal tone and bulk. Moving all extremities. No obvious deformity. Neuro: Awake and alert. Mentating appropriately. Medical Decision Making Diagnostic Impression: Primary Impression: Nausea with vomiting Additional Impression: Cyclic vomiting syndrome ER Course Is a 39-year-old female presenting for evaluation of 1 day abdominal pain and vomiting. Differential includes was not limited to gastritis, gastroenteritis, pancreatitis, hepatitis, cholecystitis, bowel obstruction, cyclic vomiting syndrome, food poisoning to name a few. Will start IV fluids, provide antiemetics, antacids. This may be a cyclic vomiting syndrome patient responded favorably to Haldol in the past. Will obtain labs including lipase to evaluate for hepatic or pancreatic disease. She arrives with stable vital signs and abdomen is not peritonititic. We will advance work-up as needed Laboratory Tests Test 01/25/20 13:27 01/25/20 13:35 01/25/20 13:45 White Blood Count 10.0 K/UL (4.8-10.8) Red Blood Count 4.68 M/UL (4.20-5.40) Hemoglobin 13.3 G/DL (12.0-16.0) Hematocrit 40.0 % (37.0-47.0) Mean Corpuscular Volume 86 FL (80-99) Mean Corpuscular Hemoglobin 28.3 PG (27.0-31.0) Mean Corpuscular Hemoglobin Concent 33.1 G/DL (32.0-36.0) Red Cell Distribution Width 11.0 % (11.6-14.8) L Platelet Count 253 K/UL (150-450) Mean Platelet Volume 6.8 FL (6.5-10.1) Neutrophils (%) (Auto) 62.9 % (45.0-75.0) Lymphocytes (%) (Auto) 31.8 % (20.0-45.0) Monocytes (%) (Auto) 4.0 % (1.0-10.0) Eosinophils (%) (Auto) 0.4 % (0.0-3.0) Basophils (%) (Auto) 0.9 % (0.0-2.0) Urine Color Yellow Urine Appearance Cloudy Urine pH 6 (4.5-8.0) Urine Specific [place] 1.020 (1.005-1.035) Urine Protein 2+ (NEGATIVE) H Urine Glucose (UA) Negative (NEGATIVE) Urine Ketones Negative (NEGATIVE) Urine Blood 5+ (NEGATIVE) H Urine Nitrite Negative (NEGATIVE) Urine Bilirubin Negative (NEGATIVE) Urine Urobilinogen Normal MG/DL (0.0-1.0) Urine Leukocyte Esterase Negative (NEGATIVE) Urine RBC Pending Urine WBC Pending Urine Squamous Epithelial Cells Pending Urine Bacteria Pending Urine HCG, Qualitative Negative (NEGATIVE) Urine Opiates Screen Negative (NEGATIVE) Urine Barbiturates Screen Negative (NEGATIVE) Phencyclidine (PCP) Screen Negative (NEGATIVE) Urine Amphetamines Screen Negative (NEGATIVE) Urine Benzodiazepines Screen Negative (NEGATIVE) Urine Cocaine Screen Negative (NEGATIVE) Urine Marijuana (THC) Screen Positive (NEGATIVE) H Sodium Level 141 MMOL/L (136-145) Potassium Level 3.7 MMOL/L (3.5-5.1) Chloride Level 103 MMOL/L (98-107) Carbon Dioxide Level 21 MMOL/L (21-32) Anion Gap 17 mmol/L (5-15) H Blood Urea Nitrogen 8 mg/dL (7-18) Creatinine 0.8 MG/DL (0.55-1.30) Estimated Glomerular Filtration Rate > 60 mL/min (>60) Glucose Level 123 MG/DL (74-106) H Calcium Level 9.2 MG/DL (8.5-10.1) Total Bilirubin 0.3 MG/DL (0.2-1.0) Aspartate Amino Transferase (AST) 22 U/L (15-37) Alanine Aminotransferase (ALT) 37 U/L (12-78) Alkaline Phosphatase 89 U/L (46-116) Total Protein 8.8 G/DL (6.4-8.2) H Albumin 4.0 G/DL (3.4-5.0) Globulin 4.8 g/dL Albumin/Globulin Ratio 0.8 (1.0-2.7) L Lipase 108 U/L (73-393) Reevaluation Time: 15:29 Last Vital Signs Date Time Temp Pulse Resp B/P (MAP) Pulse Ox O2 Delivery O2 Flow Rate FiO2 01/25/20 13:30 64 19 Room Air 01/25/20 13:30 97.7 172/88 98 Reevaluation Impression Labs have returned largely within normal limits. Suspect cyclic vomiting syndrome given the patient's marijuana use. Symptoms now controlled after receiving medications. Patient be discharged home to follow-up with PMD. Discussed marijuana cessation. Instructed to return with new or worsening symptoms. Disposition: HOME, SELF-CARE Condition: Improved Referrals: NON PHYSICIAN (PCP) Stewart Walker MD Jan 25, 2020 14:16
[2020-01-25 14:18] LABS: BASOPHILS % (AUTO) 0.9 % (0.0-2.0); EOSINOPHILS % (AUTO) 0.4 % (0.0-3.0); HEMOGLOBIN 13.3 G/DL (12.0-16.0); LYMPHOCYTES % (AUTO) 31.8 % (20.0-45.0); MEAN CORPUSCULAR VOLUME 86 FL (80-99); NEUTROPHILS % (AUTO) 62.9 % (45.0-75.0); PLATELET COUNT 253 K/UL (150-450); RED BLOOD COUNT 4.68 M/UL (4.20-5.40)
[2020-01-25 14:36] LABS: ANION GAP 17 mmol/L (5-15); BLOOD UREA NITROGEN 8 mg/dL (7-18); CALCIUM 9.2 MG/DL (8.5-10.1); CARBON DIOXIDE 21 MMOL/L (21-32); CHLORIDE 103 MMOL/L (98-107); CREATININE 0.8 MG/DL (0.55-1.30); POTASSIUM 3.7 MMOL/L (3.5-5.1); SODIUM 141 MMOL/L (136-145)
[2020-01-25 14:40] LABS: ALANINE AMINOTRANSFERASE 37 U/L (12-78); ALBUMIN/GLOBULIN RATIO 0.8 (1.0-2.7); ALKALINE PHOSPHATASE 89 U/L (46-116); ASPARTATE AMINO TRANSFERASE 22 U/L (15-37); BILIRUBIN,TOTAL 0.3 MG/DL (0.2-1.0)
[2020-01-25 15:22] LABS: APPEARANCE,URINE CLOUDY; COLOR,URINE YELLOW; PH,URINE 6 (4.5-8.0)
[2020-01-25 15:23] LABS: BILIRUBIN, URINE NEGATIVE (NEGATIVE); GLUCOSE, URINE (UA) NEGATIVE (NEGATIVE); KETONES,URINE NEGATIVE (NEGATIVE); LEUKOCYTE ESTERASE ,URINE NEGATIVE (NEGATIVE); NITRITE,URINE NEGATIVE (NEGATIVE); PROTEIN,URINE 2+ (NEGATIVE); UROBILINOGEN,URINE NORMAL MG/DL (0.0-1.0)
[2020-01-25 15:39] VITALS: BP 159/84
--- NOTE | 2020-01-25 15:39 | NUR ---
ER DISCHARGE NOTE: Pt is cleared to be discharged per ERMD, pt is aox4, on room air, with stable vital signs. pt was given dc and prescription instructions, pt was able to verbalize understanding, pt id band and iv site removed without complications. pt is able to ambulate with steady gait. pt took all belongings.
== END 2020-01-25 15:39 | disposition home or self-care (01) ==
LOC: EMR 13:35
DX: R11.15 Cyclical vomiting syndrome unrelated to migraine (principal); K21.9 Gastro-esophageal reflux disease without esophagitis; Z90.89 Acquired absence of other organs; I10 Essential (primary) hypertension
CPT/HCPCS: 36415; 80053; 80307; 81003; 81025; 83690; 85025; 96361; 96374; 96375; J1630; J2405; J7030; S0028; Z7502; 99284

== ENCOUNTER 2020-03-27 01:05 | Emergency (ER) | payer MEDICAID ==
[~2020-03-27] VITALS: Ht 167.6 cm; Wt 104.3 kg
[2020-03-27] MEDS ORDERED: DiphenhydrAMINE 50mg/ml Inj IVP ONE (01:45)
[2020-03-27] MEDS ORDERED: Haloperidol 5mg/ml Inj IM ONE (01:45)
[2020-03-27] MEDS ORDERED: LORazepam Inj 2mg/ml 1ml IV ONE (01:45)
[2020-03-27 02:10] VITALS: BP 130/83
[2020-03-27 02:11] LABS: BASOPHILS % (AUTO) 0.5 % (0.0-2.0); HEMATOCRIT 39.7 % (37.0-47.0); HEMOGLOBIN 12.6 G/DL (12.0-16.0); LYMPHOCYTES % (AUTO) 15.9 % (20.0-45.0); MEAN CORPUSCULAR VOLUME 90 FL (80-99); NEUTROPHILS % (AUTO) 79.7 % (45.0-75.0); PLATELET COUNT 280 K/UL (150-450); RED BLOOD COUNT 4.41 M/UL (4.20-5.40); RED CELL DISTRIBUTION WIDTH 12.8 % (11.6-14.8); WHITE BLOOD COUNT 10.3 K/UL (4.8-10.8)
[2020-03-27 02:27] LABS: ALANINE AMINOTRANSFERASE 28 U/L (12-78); ALBUMIN 3.9 G/DL (3.4-5.0); ALBUMIN/GLOBULIN RATIO 0.9 (1.0-2.7); ALKALINE PHOSPHATASE 74 U/L (46-116); ANION GAP 12 mmol/L (5-15); ASPARTATE AMINO TRANSFERASE 16 U/L (15-37); BILIRUBIN,TOTAL 0.4 MG/DL (0.2-1.0); BLOOD UREA NITROGEN 8 mg/dL (7-18); CALCIUM 9.3 MG/DL (8.5-10.1); CARBON DIOXIDE 25 MMOL/L (21-32); CHLORIDE 102 MMOL/L (98-107); POTASSIUM 3.5 MMOL/L (3.5-5.1); SODIUM 138 MMOL/L (136-145)
--- NOTE | 2020-03-27 02:37 | Emergency Room Report ---
History of Present Illness General Chief Complaint: Vomiting Source: Patient Present Illness HPI 39-year-old female presents ED for vomiting. States she has been having vomiting and abdominal pain for the last 2 days. Pain is epigastric, burning, 7 out of 10, nonradiating. Notes history of GERD. Admits to marijuana use. Denies any diarrhea. Denies any fevers or chills. Denies any chest pain or shortness of breath. No other aggravating relieving factors. 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 Patient History Past Medical History: HTN, GERD Pertinent Family History: none Social History: Reports: smoking; Denies: alcohol use, drug use Last Menstrual Period: 2016 Now: No : 4 Para: 1 Immunizations: UTD Reviewed Nursing Documentation: PMH: Agreed; PSxH: Agreed Nursing Documentation-PMH Hx Hypertension: Yes Hx Cancer: No Hx Gastrointestinal Problems: Yes Hx Neurological Problems: No Review of Systems All Other Systems: negative except mentioned in HPI Physical Exam Vital Signs Date Time Temp Pulse Resp B/P (MAP) Pulse Ox O2 Delivery O2 Flow Rate FiO2 03/27/20 01:20 98.4 72 18 130/83 (99) 100 Room Air Sp02 EP Interpretation: reviewed, normal General Appearance: no apparent distress, alert, GCS 15, non-toxic Head: normocephalic, atraumatic Eyes: bilateral eye normal inspection, bilateral eye PERRL ENT: hearing grossly normal, normal pharynx, no angioedema, normal voice Neck: full range of motion, supple/symm/no masses Respiratory: chest non-tender, lungs clear, normal breath sounds, speaking full sentences Cardiovascular #1: regular rate, rhythm, no edema Cardiovascular #2: 2+ carotid (R), 2+ carotid (L), 2+ radial (R), 2+ radial (L) , 2+ dorsalis pedis (R), 2+ dorsalis pedis (L) Gastrointestinal: normal bowel sounds, soft, non-distended, no guarding, no rebound, tenderness - epigastric Rectal: deferred Genitourinary: normal inspection, no CVA tenderness Musculoskeletal: back normal, normal range of motion, gait/station normal, non- tender Neurologic: alert, motor strength/tone normal, oriented x3, sensory intact, responsive, speech normal Psychiatric: judgement/insight normal, memory normal, mood/affect normal, no suicidal/homicidal ideation Reflexes: 3+ bicep (R), 3+ bicep (L), 3+ tricep (R), 3+ tricep (L), 3+ knee (R) , 3+ knee (L) Skin: no rash Lymphatic: no adenopathy Medical Decision Making Diagnostic Impression: Primary Impression: Gastritis Qualified Codes: K29.50 - Unspecified chronic gastritis without bleeding Additional Impression: Cyclic vomiting syndrome ER Course Hospital Course 39-year-old F presents to ED with epigastric pain with N/V. differential diagnosis: gastritis, SBO, cholecystits Clinical course Patient placed on stretcher. 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 After initial history and physical I ordered labs, IV fluids, Zofran and pepcid and GI cocktail Labs - no leukocytosis, no electrolyte abnormalities, LFTs normal, Upon reassessment, patient states pain has improved. findings consistent with gastritis. Discussed findings with patient. Patient also chronic marijuana user. History of cyclical vomiting. I explained that these conditions are not mutually exclusive. Patient would benefit from outpatient GI evaluation. I will provide referrals I feel this is a highly complex case requiring extensive working including EKG/ Rhythm strip, Xray/CT/US, Blood/urine lab work, repeat exams while in ED, and administration of strong opiates/narcotics for pain control, admission to hospital or close patient follow up. Diagnosis - gastritis , cyclical vomiting syndrome Stable and discharged to home with prescriptions for pepcid, zofran. Followup with PMD/GI. Return to ED if symptoms recur or worsen Labs Test 03/27/20 01:40 White Blood Count 10.3 K/UL (4.8-10.8) Red Blood Count 4.41 M/UL (4.20-5.40) Hemoglobin 12.6 G/DL (12.0-16.0) Hematocrit 39.7 % (37.0-47.0) Mean Corpuscular Volume 90 FL (80-99) Mean Corpuscular Hemoglobin 28.6 PG (27.0-31.0) Mean Corpuscular Hemoglobin Concent 31.7 G/DL (32.0-36.0) Red Cell Distribution Width 12.8 % (11.6-14.8) Platelet Count 280 K/UL (150-450) Mean Platelet Volume 7.7 FL (6.5-10.1) Neutrophils (%) (Auto) 79.7 % (45.0-75.0) Lymphocytes (%) (Auto) 15.9 % (20.0-45.0) Monocytes (%) (Auto) 4.0 % (1.0-10.0) Eosinophils (%) (Auto) 0.0 % (0.0-3.0) Basophils (%) (Auto) 0.5 % (0.0-2.0) Sodium Level 138 MMOL/L (136-145) Potassium Level 3.5 MMOL/L (3.5-5.1) Chloride Level 102 MMOL/L (98-107) Carbon Dioxide Level 25 MMOL/L (21-32) Anion Gap 12 mmol/L (5-15) Blood Urea Nitrogen 8 mg/dL (7-18) Creatinine 1.0 MG/DL (0.55-1.30) Estimat Glomerular Filtration Rate > 60 mL/min (>60) Glucose Level 145 MG/DL (74-106) Calcium Level 9.3 MG/DL (8.5-10.1) Total Bilirubin 0.4 MG/DL (0.2-1.0) Aspartate Amino Transf (AST/SGOT) 16 U/L (15-37) Alanine Aminotransferase (ALT/SGPT) 28 U/L (12-78) Alkaline Phosphatase 74 U/L (46-116) Total Protein 8.2 G/DL (6.4-8.2) Albumin 3.9 G/DL (3.4-5.0) Globulin 4.3 g/dL Albumin/Globulin Ratio 0.9 (1.0-2.7) Lipase 87 U/L (73-393) Last Vital Signs Date Time Temp Pulse Resp B/P (MAP) Pulse Ox O2 Delivery O2 Flow Rate FiO2 03/27/20 01:40 72 18 Room Air 03/27/20 01:20 98.4 130/83 (99) 100 Status: improved Disposition: HOME, SELF-CARE Condition: Stable Scripts Famotidine* (Pepcid 20mg tablet*) 20 Mg Tablet 20 MG ORAL TWICE A DAY, #60 TAB 0 Refills Prov: Dieudonne Tomlin MD 03/27/20 Ondansetron (Zofran) 4 Mg Tablet 4 MG ORAL Q6H PRN for Nausea & Vomiting, #30 TAB 0 Refills Prov: Dieudonne Tomlin MD 03/27/20 Referrals: NON PHYSICIAN (PCP) Dieudonne Tomlin MD Mar 27, 2020 02:37
[2020-03-27] MEDS ORDERED: Lidocaine 2% Visc 15ml soln ORAL ONE (02:45)
[2020-03-27] MEDS ORDERED: Dicyclomine HCl 10mg/5ml oral soln ORAL ONE (02:45)
[2020-03-27] MEDS ORDERED: Mylanta II UD 30ml ORAL ONE (02:45)
[2020-03-27] MEDS ORDERED: FAMOTIDINE20 MG ORAL (03:30)
[2020-03-27] MEDS ORDERED: ZOFRAN4 MG ORAL (03:30)
== END 2020-03-27 05:30 | disposition home or self-care (01) ==
LOC: EMR 01:32
DX: K29.50 Unspecified chronic gastritis without bleeding (principal); R11.15 Cyclical vomiting syndrome unrelated to migraine; K21.9 Gastro-esophageal reflux disease without esophagitis; F12.90 Cannabis use, unspecified, uncomplicated; Z88.0 Allergy status to penicillin; I10 Essential (primary) hypertension; F17.200 Nicotine dependence, unspecified, uncomplicated
CPT/HCPCS: 36415; 80053; 83690; 85025; 96361; 96374; 96375; J1200; J2405; J7030; S0028; Z7502; 99284

== ENCOUNTER 2020-05-18 14:06 | Emergency (ER) | payer MEDICAID ==
[~2020-05-18] VITALS: Ht 167.6 cm; Wt 113.4 kg
[~2020-05-18 14:06] MED LIST changes: +FAMOTIDINE20 MG ORAL
[2020-05-18] MEDS ORDERED: Haloperidol Decanoate (Long Acting) 50mg Inj IM ONE (14:15)
[2020-05-18] MEDS ORDERED: BENADRYL25 M3 PO (14:23)
[2020-05-18] MEDS ORDERED: ONDANSETRON ODT4 MG BC (14:23)
[2020-05-18] MEDS ORDERED: REGLAN5 MG ORAL (14:23)
--- NOTE | 2020-05-18 14:23 | Emergency Room Report ---
History of Present Illness General Chief Complaint: Abdominal Pain Source: Patient Present Illness HPI Patient is a 39-year-old obese -[place] female with past medical history of marijuana use (last used 2 days ago), cyclic vomiting syndrome, GERD who presents to the ED with chief complaint of midepigastric pain that began prior to arrival. Onset was since this morning after she ate chicken and steak. Pain is nonradiating. States it feels like "acid" Last menstrual period was 3 years ago as she has a Nexplanon implant for control. Denies risk of . Endorses nausea and nonbloody nonbilious vomiting. Also endorses diarrhea that is nonbloody. Denies recent travel or sick contacts Was supposed to get a referral to GI but has not followed up. The patient's symptoms were gradual onset, severity was moderate, duration since 1 day. Quality: Acidic Past medical history: Obesity Past surgical history: Appendectomy, 2 D&C Smoking: Denies Alcohol use: Denies Drug use: Marijuana Review of systems: CONST: No fevers or chills, No night sweats PULMONARY: No productive cough, No shortness of breath CARDIAC: No chest pain, No palpitations GI: No vomiting, No diarrhea , No melena_or_BRBPR : No dysuria, No hematuria, No discharge NEURO: No new_focal_weakness_or_numbness, No confusion, No vision changes 14 point Review of Systems is otherwise negative except per HPI Physical Exam: GENERAL: Awake_alert_ nontoxic, no acute distress Spo2 100% on RA -normal Obese EYES: Extraocular muscles are intact. Conjunctivae clear. Lids without swelling ENT: External nose and ear normal_in_appearance. Oropharynx clear. Head_ atraumatic, Moist_oral_mucosa NECK: No JVD. No meningismus. No thyromegaly. Supple. Trachea midline RESP: Normal respiratory effort. Symmetric rise. No stridor. Clear_to_ auscultation_No_rales_No_wheezes CARDIAC: Regular rate and regular rhythm on_auscultation No_significant pedal edema. ABDOMEN: Soft. Nondistended. Nontender_No_rebound_or_guarding. No CVA tenderness to palpation bilaterally MSK: Normal muscle tone, without rigidity. Extremities without asymmetric deformity or swelling. SKIN: Warm and dry. No visible cyanosis or pallor NEUROLOGIC: Alert, oriented x 3. Motor_and_sensation_grossly_intact. No truncal ataxia. Gait_normal Psych: Normal mood and affect, normal judgment and insight - COORDINATION OF CARE Case was discussed with: Patient Any labs and imaging that were ordered were interpreted as part of the medical decision making: Medical Decision Making/Plan: Differential diagnosis includes biliary colic versus cyclic vomiting syndrome versus gastritis versus GERD versus, diverticulitis, ectopic , ovarian torsion, hemorrhagic ovarian cyst, PID (pelvic inflammatory disease), kidney stone, UTI, small bowel obstruction, volvulus, AAA, pancreatitis, among others. Patient is well appearing with stable vital signs. Abdominal exam is non peritoneal with no guarding or rebound. Labs show HCo3 of 20 otherwise WNL. UA shows small UTI. EKG is unremarkable. test is negative, ruling out ectopic CT abd/pelvis shows diverticulosis with diverticulitis The patients presentation is not consistent with ovarian torsion or hemorrhagic ovarian cyst, pain was not sudden onset, not associated with vomiting, and has no significant tenderness on exam. The patient denies any bloody stool and has no pain out of proportion to exam, and no significant risk factors for mesenteric ischemia such as atrial fibrillation or severe PAD/PVD (peripheral arterial / vascular disease), thus definitive workup to rule out mesenteric ischemia was not pursued. Prevention included Zofran, reglan, and Haldol. Pt was counseled to avoid marijuana use as this is likely the etiology behind her cyclic vomiting syndrome. She will continue to follow-up with GI as scheduled. Recommend soft diet, advance as tolerated. Pertinent results reviewed with the patient. I educated the patient on the current treatment plan including the risks, benefits, and alternatives. I also discussed the extent and limitations of the current evaluation. The patient expressed understanding and agreement with plan. I recommended PMD follow-up within 1-2 days. Also advised that the patient return to the Emergency Department as soon as possible if they experience any new, persistent, or worsening symptoms. 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 Nursing Documentation-PMH Hx Hypertension: Yes Hx Cancer: No Hx Gastrointestinal Problems: Yes Hx Neurological Problems: No Physical Exam Vital Signs Date Time Temp Pulse Resp B/P (MAP) Pulse Ox O2 Delivery O2 Flow Rate FiO2 05/18/20 14:09 98.6 56 19 191/79 (116) 100 Room Air Sp02 EP Interpretation: reviewed, normal Medical Decision Making Diagnostic Impression: Primary Impression: Abdominal pain Additional Impressions: Cyclic vomiting syndrome Nausea with vomiting Cannabis abuse Diverticulosis UTI (urinary tract infection) EKG Diagnostic Results PA Scribe Text 12-lead EKG (interpreted by me) Time: 1420 Indication: Rhythm analysis Tracing visualized and Interpreted by me. Rhythm: Normal sinus rhythm Rate: 65 bpm QTc: 455 Morphology: No_significant_ST_elevations_or_depressions, No STEMI Impression: Normal_sinus_rhythm_without_significant_abnormality; nonspecific ST changes. ST depression in aVR and V1 Rhythm Strip Diag. Results Rhythm Strip Time: 14:57 EP Interpretation: yes - 65 Rate: 65 Rhythm: NSR, no PVC's, no ectopy Other Impression Normal Chest X-Ray Diagnostic Results Chest X-Ray Diagnostic Results : HEMANT Carrionibe Renae Chest X-Ray: Views: [ 1 ] view(s) Indication: Chest pain Findings: Normal heart size. Mediastinum normal. No infiltrate. Impression: No acute disease The X-ray(s) were independently viewed and interpreted contemporaneously Electronically signed by Dang chowdary DO CT/MRI/US Diagnostic Results CT/MRI/US Diagnostic Results : Impression CT ABD PELVIS FINDINGS: Lower chest:: Unremarkable Hepatobiliary:: Unremarkable Genitourinary:: No hydronephrosis or nephrolithiasis. Adrenals:: Unremarkable Pancreas:: Remarkable Gastrointestinal:: Small hiatal hernia. The distal colon is collapsed, limiting evaluation. Scattered colonic diverticulosis without evidence of acute diverticulitis. The appendix is not visualized but there are no secondary signs to suggest acute appendicitis; right lower quadrant rectus sheath muscle defect suggests prior appendectomy. There is a small broad-based ventral hernia containing nonobstructed loops of bowel.. Spleen: : Unremarkable Peritoneum:: Unremarkable Bones and soft tissues:: There are multilevel discogenic degenerative changes of the visualized spine. IMPRESSION: Colonic diverticulosis without evidence of acute diverticulitis. Reevaluation Time: 14:58 Last Vital Signs Date Time Temp Pulse Resp B/P (MAP) Pulse Ox O2 Delivery O2 Flow Rate FiO2 05/18/20 14:09 98.6 56 19 191/79 (116) 100 Room Air Status: improved Disposition: HOME, SELF-CARE Admit Decision Time: 14:58 Condition: Stable Scripts Cephalexin* (KEFLEX*) 500 Mg Capsule 500 MG ORAL EVERY 12 HOURS, #14 CAP 0 Refills Prov: Dang Akers D.O. 05/18/20 Diphenhydramine HCl (Benadryl) 25 Mg Capsule 25 MG PO QID for nausea for 5 Days, #20 CAP Prov: Dang Akers D.O. 05/18/20 Metoclopramide Hcl* (REGLAN*) 5 Mg Tablet 5 MG ORAL EVERY 6 HOURS for 5 Days, #20 TAB Prov: Dang Akers D.O. 05/18/20 Ondansetron Odt* (ZOFRAN ODT*) 4 Mg Tab.rapdis 4 MG BC EVERY 6 HOURS PRN for Nausea & Vomiting, #10 TAB 0 Refills Prov: Dang Akers D.O. 05/18/20 Patient Instructions: Abdominal Pain, Adult, Cannabis Use Disorder, Finding Treatment for Addiction, Urinary Tract Infection Additional Instructions: Instructions for patient/columnist: Follow up with your physician in 1 to 2 days for referral to a GI specialist. You need to quit smoking marijuana as this is the reason why you are having symptoms of cyclic vomiting. Follow-up with your doctor sooner if your condition requires a more timely clinical reevaluation. Return to the emergency department immediately if you feel that your condition is worsening or if you have any new or concerning symptoms. Review your discharge instructions and take any prescriptions given as instructed. You had a urine culture done to evaluate for specific types of bacteria associated with your urinary infection. You were given an antibiotic that should treat most bacteria that usually occur with a urinary infection, but there is always the possibility of antibiotic resistance. You will receive a telephone call if it is positive. If you do not receive a call, they are likely negative, but you should return to medical records to get your results to be sure, or have your primary doctor obtain them from our hospital, and especially if you are having persistent symptoms. If you are having persistent symptoms and are not able to get a hold of your culture results or your regular doctor you should return to the ER for a reevaluation. Dang Akers D.O. May 18, 2020 14:23
[2020-05-18 14:30] VITALS: BP 167/73
[2020-05-18] MEDS ORDERED: DiphenhydrAMINE 50mg/ml Inj IM ONE (15:00)
[2020-05-18] MEDS ORDERED: Metoclopramide 10mg/2ml Inj IVP ONE (15:00)
[2020-05-18] MEDS ORDERED: Morphine Sulfate 4mg/ml Inj (IV USE ONLY) IVP ONE (15:15)
[2020-05-18 15:27] LABS: ANION GAP 15 mmol/L (5-15); BLOOD UREA NITROGEN 9 mg/dL (7-18); CALCIUM 9.8 MG/DL (8.5-10.1); CARBON DIOXIDE 20 MMOL/L (21-32); CHLORIDE 103 MMOL/L (98-107); CREATININE 0.9 MG/DL (0.55-1.30); POTASSIUM 3.5 MMOL/L (3.5-5.1); SODIUM 138 MMOL/L (136-145)
[2020-05-18 15:31] LABS: ALANINE AMINOTRANSFERASE 25 U/L (12-78); ALBUMIN 4.1 G/DL (3.4-5.0); ALBUMIN/GLOBULIN RATIO 0.9 (1.0-2.7); ALKALINE PHOSPHATASE 80 U/L (46-116); ASPARTATE AMINO TRANSFERASE 15 U/L (15-37); BILIRUBIN,TOTAL 0.3 MG/DL (0.2-1.0)
[2020-05-18 16:13] LABS: BASOPHILS % (AUTO) 0.6 % (0.0-2.0); EOSINOPHILS % (AUTO) 0.1 % (0.0-3.0); HEMATOCRIT 39.9 % (37.0-47.0); HEMOGLOBIN 13.2 G/DL (12.0-16.0); MEAN CORPUSCULAR VOLUME 87 FL (80-99); MONOCYTES % (AUTO) 3.3 % (1.0-10.0); PLATELET COUNT 272 K/UL (150-450); RED BLOOD COUNT 4.58 M/UL (4.20-5.40); RED CELL DISTRIBUTION WIDTH 12.9 % (11.6-14.8); WHITE BLOOD COUNT 9.8 K/UL (4.8-10.8)
--- NOTE | 2020-05-18 16:25 | Diagnostic Imaging Report ---
Indication: Reason For Exam: ABD PAIN Technique: Single AP view of the chest. Comparison: Chest radiograph dated 02/25/2019 Findings: The cardiomediastinal silhouette is unchanged, with persistent cardiac megaly. No new airspace consolidation. No pneumothorax or pleural effusion. No acute osseous abnormality. IMPRESSION: No radiographic evidence of acute cardiopulmonary process.
[2020-05-18 16:35] LABS: APPEARANCE,URINE SLIGHTLY CLOUDY; BILIRUBIN, URINE NEGATIVE (NEGATIVE); COLOR,URINE PALE YELLOW; GLUCOSE, URINE (UA) NEGATIVE (NEGATIVE); KETONES,URINE 4+ (NEGATIVE); LEUKOCYTE ESTERASE ,URINE NEGATIVE (NEGATIVE); NITRITE,URINE NEGATIVE (NEGATIVE); PH,URINE 7 (4.5-8.0); PROTEIN,URINE 1+ (NEGATIVE); UROBILINOGEN,URINE NORMAL MG/DL (0.0-1.0)
--- NOTE | 2020-05-18 17:04 | Diagnostic Imaging Report ---
CT ABDOMEN AND PELVIS WITHOUT CONTRAST INDICATION: Abdominal pain TECHNIQUE: Continuous helical transaxial imaging of the abdomen and pelvis was obtained from the lung bases to the pubic symphysis. Coronal 2-D reformats were also obtained. Study obtained in a Siemens sensation [address] Automatic Exposure Control was utilized. Total Dose length Product (DLP): 1036.[address] Dose Index Volume (CTDIvol): 1940 mGy COMPARISON: None FINDINGS: Lower chest:: Unremarkable Hepatobiliary:: Unremarkable Genitourinary:: No hydronephrosis or nephrolithiasis. Adrenals:: Unremarkable Pancreas:: Remarkable Gastrointestinal:: Small hiatal hernia. The distal colon is collapsed, limiting evaluation. Scattered colonic diverticulosis without evidence of acute diverticulitis. The appendix is not visualized but there are no secondary signs to suggest acute appendicitis; right lower quadrant rectus sheath muscle defect suggests prior appendectomy. There is a small broad-based ventral hernia containing nonobstructed loops of bowel.. Spleen: : Unremarkable Peritoneum:: Unremarkable Bones and soft tissues:: There are multilevel discogenic degenerative changes of the visualized spine. IMPRESSION: Colonic diverticulosis without evidence of acute diverticulitis. The CT scanner at [facility] is accredited by the [employer] and the scans are performed using protocols designed to limit radiation exposure to as low as reasonably achievable to attain images of sufficient resolution adequate for diagnostic evaluation
[2020-05-18 17:11] VITALS: BP 154/78
[2020-05-18] MEDS ORDERED: CEPHALEXIN500 MG ORAL (17:39)
[2020-05-18 17:56] VITALS: BP 152/75
[2020-05-19] MEDS ORDERED: MAALOX MAXIMUM355 M1 PO (03:48)
[2020-05-19] MEDS ORDERED: CAPSAICIN60 GM TP (03:48)
== END 2020-05-18 17:56 | disposition home or self-care (01) ==
LOC: EMR 14:36
DX: R10.13 Epigastric pain (principal); R11.15 Cyclical vomiting syndrome unrelated to migraine; R11.2 Nausea with vomiting, unspecified; F12.10 Cannabis abuse, uncomplicated; K57.90 Diverticulosis of intestine, part unspecified, without perforation or abscess without bleeding; N39.0 Urinary tract infection, site not specified; Z90.89 Acquired absence of other organs; I10 Essential (primary) hypertension; Z88.0 Allergy status to penicillin; K44.9 Diaphragmatic hernia without obstruction or gangrene
CPT/HCPCS: 36415; 71045; 74176; 80053; 80307; 81003; 81025; 82962; 83690; 84484; 84702; 85025; 87086; 93005; 96361; 96372; 96374; 96375; J1200; J1631; J2270; J2405; J2765; J7030; Z7502; 99284

== ENCOUNTER 2020-05-19 02:03 | Emergency (ER) | payer MEDICAID ==
[~2020-05-19] VITALS: Ht 167.6 cm; Wt 108.9 kg
[~2020-05-19 02:03] MED LIST changes: +BENADRYL25 M3 PO; +CEPHALEXIN500 MG ORAL
--- NOTE | 2020-05-19 02:24 | Emergency Room Report ---
History of Present Illness General Chief Complaint: Nausea, Vomiting, and Diarrhea Source: Patient Present Illness HPI Disclaimer: Please note that this report is being documented using [employer] technology. This can lead to erroneous entry secondary to incorrect interpretation by the dictating instrument. HPI: 39-year-old female history of cyclic vomiting syndrome and recurrent gastritis as well as diverticulosis presents for evaluation of abdominal pain she was seen in the emergency department earlier today with similar complaints. Labs and CT were unremarkable. Patient was discharged with antiemetic medication which states she is consistently vomiting. She has been unable to hold down her medications. Last emesis was 30 minutes ago. States it is mostly dry heaving. She is complaining of epigastric burning sensation and burning in the back of her throat from repeated vomiting. Consistent with her prior episodes of cyclic vomiting syndrome/gastritis. Denies fever, chills, chest pain, cough, shortness of breath, diarrhea. She has not yet followed up with gastroenterology. Smokes marijuana occasionally. 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 EOMI. Cardiovascular: RRR. S1 and S2 normal. No murmur appreciated Resp: Normal work of breathing. No cough, wheezing or crackles appreciated Abdomen: Abdomen is soft, nondistended. Nontender Skin: Intact. No abrasions, laceration or rash over the exposed skin MSK: Normal tone and bulk. Moving all extremities. No obvious deformity. Neuro: Awake and alert. Mentating appropriately. Medical Decision Making Diagnostic Impression: Primary Impression: Nausea with vomiting ER Course 39-year-old female seen earlier today for evaluation of vomiting returns with persistent vomiting. Consistent with the patient's gastritis and cyclic vomiting history. Labs and CT performed previous visit were within normal limits. Patient states she would like to try oral and topical medications before going to IV. Will order oral Zofran and capsaicin cream. Do not believe the patient requires repeat of labs or imaging at this. Can advance work-up as needed. 0350: On reevaluation, patient is found sleeping comfortably. She has had no emesis in the emergency department and states the capsaicin cream and GI cocktail helped her significantly. She would like to take the rest of the tube home as well as a prescription for capsaicin cream. I will also prescribe Maalox. The patient will follow up with gastroenterology. She states she has been hesitant to do so because she heard a friend of hers had a bad experience during an endoscopy however she knows that she needs GI evaluation given her repeated emergency department visits for vomiting and epigastric pain. She is requesting for discharge so she can go home at rest. She is stable for outpatient follow-up. Discussed reasons to return to the emergency department. She understands and agrees with this treatment plan. Last Vital Signs Date Time Temp Pulse Resp B/P (MAP) Pulse Ox O2 Delivery O2 Flow Rate FiO2 05/19/20 02:10 98.2 81 18 156/8 (57) 96 Room Air Disposition: HOME, SELF-CARE Condition: Improved Scripts Mag Hydrox/Al Hydrox/Simeth (MAALOX MAXIMUM STRENGTH SUSP) 355 Ml Oral.susp 355 ML PO TID, #355 ML Prov: Stewart Walker MD 05/19/20 Capsaicin (CAPSAICIN) 60 Gm Cream..g. 60 GM TP BID PRN for Nausea & Vomiting, #1 TUBE Prov: Stewart Walker MD 05/19/20 Stewart Walker MD May 19, 2020 02:24
[2020-05-19 02:26] VITALS: BP 156/8
[2020-05-19] MEDS ORDERED: Capsaicin 0.075% Cream TOPIC SCH (02:30)
--- NOTE | 2020-05-19 02:31 | NUR ---
ED Nurse Note: Pt ambulated to ED from home c/o N/V and 1010 abdomnial pain since being discharged yesterday for the same symptoms. VSS, pt is A&Ox4, ERMD at bedside. BS 139
[2020-05-19] MEDS ORDERED: Mylanta II UD 30ml ORAL ONE (03:00)
[2020-05-19] MEDS ORDERED: Dicyclomine HCl 10mg/5ml oral soln ORAL ONE (03:00)
[2020-05-19] MEDS ORDERED: Lidocaine 2% Visc 15ml soln ORAL ONE (03:00)
[2020-05-19] MEDS ORDERED: MAALOX MAXIMUM355 M1 PO (03:48)
[2020-05-19] MEDS ORDERED: CAPSAICIN60 GM TP (03:48)
[2020-05-19 03:53] VITALS: BP 148/70
--- NOTE | 2020-05-19 03:53 | NUR ---
ER DISCHARGE NOTE: Patient is cleared to be discharged per ERMD, pt is aox4, on room air, with stable vital signs. pt was given dc and prescription instructions, pt was able to verbalize understanding, pt id band removed. pt is able to ambulate with steady gait. pt took all belongings.
== END 2020-05-19 03:53 | disposition home or self-care (01) ==
LOC: EMR 02:30
DX: R11.2 Nausea with vomiting, unspecified (principal); R10.9 Unspecified abdominal pain; Z90.89 Acquired absence of other organs; Z88.0 Allergy status to penicillin; I10 Essential (primary) hypertension
CPT/HCPCS: 96361; 96374; Z7502; 99284; J2405

== ENCOUNTER 2020-07-25 09:44 | Emergency (ER) | payer MEDICAID ==
[~2020-07-25] VITALS: Ht 167.6 cm; Wt 108.9 kg
[~2020-07-25 09:44] MED LIST changes: +CAPSAICIN60 GM TP; +MAALOX MAXIMUM355 M1 PO
[2020-07-25] MEDS ORDERED: DiphenhydrAMINE 50mg/ml Inj IVP ONE (10:15)
[2020-07-25] MEDS ORDERED: Lidocaine 2% Visc 15ml soln ORAL ONE (10:15)
[2020-07-25] MEDS ORDERED: Dicyclomine HCl 10mg/5ml oral soln ORAL ONE (10:15)
[2020-07-25] MEDS ORDERED: Metoclopramide 10mg/2ml Inj IVP ONE (10:15)
[2020-07-25] MEDS ORDERED: Mylanta II UD 30ml ORAL ONE (10:15)
--- NOTE | 2020-07-25 10:15 | Emergency Room Report ---
History of Present Illness General Chief Complaint: Abdominal Pain Source: Patient Present Illness HPI Disclaimer: Please note that this report is being documented using [employer] technology. This can lead to erroneous entry secondary to incorrect interpretation by the dictating instrument. HPI: 40-year-old female presents for evaluation of vomiting and epigastric discomfort. Symptoms present 2 days. She states she ate pasta with red sauce for breakfast yesterday morning after which she noted epigastric burning, nausea, persistent nonbloody and nonbilious emesis. She had one episode of diarrhea yesterday but this resolved. She has been compliant with her ome prazole and taking Zofran for nausea and vomiting though limited effect. Patient has a history of cyclic vomiting syndrome with likely secondary to THC use but states she has not used marijuana in over 3 weeks. Denies recent fever, chills, chest pain, shortness of breath, cough, URI symptoms. Prior history of appendectomy. Denies dysuria or hematuria. 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 EOMI. moist mucous membranes Cardiovascular: RRR. S1 and S2 normal. No murmur appreciated Resp: Normal work of breathing. No cough, wheezing or crackles appreciated Abdomen: Abdomen is soft, nondistended. Tender palpation in the epigastrium and mildly in the upper quadrants bilaterally that there is no Tsai's tenderness. No tenderness in the lower quadrants. Skin: Intact. No abrasions, laceration or rash over the exposed skin MSK: Normal tone and bulk. Moving all extremities. No obvious deformity. Neuro: Awake and alert. Mentating appropriately. Medical Decision Making Diagnostic Impression: Primary Impression: Nausea with vomiting Additional Impression: UTI (urinary tract infection) ER Course This a 40-year-old female presenting for evaluation of nausea vomiting. Differential includes was not limited to gastritis, gastroenteritis, cholecystitis, pancreatitis, diverticulitis, GERD among others. Patient received antiemetics and IV fluids with good control of her symptoms. Labs show normal white count, creatinine function within normal limits, normal LFTs and normal lipase. For THC though patient states she quit several weeks ago. Urinalysis concerning for urinary tract infection with moderate bacteria, white cells and leukocyte esterase. 1 dose of Rocephin given in ED. No further emesis. Requesting discharge home at this time. Will start on Macrobid and antiemetic medications. Patient stable for outpatient follow-up. Instructed to return with new or worsening symptoms. She understands and agrees with the treatment plan. Laboratory Tests Test 07/25/20 10:10 07/25/20 11:00 White Blood Count 10.8 K/UL (4.8-10.8) Red Blood Count 4.60 M/UL (4.20-5.40) Hemoglobin 12.9 G/DL (12.0-16.0) Hematocrit 38.1 % (37.0-47.0) Mean Corpuscular Volume 83 FL (80-99) Mean Corpuscular Hemoglobin 28.0 PG (27.0-31.0) Mean Corpuscular Hemoglobin Concent 33.9 G/DL (32.0-36.0) Red Cell Distribution Width 11.8 % (11.6-14.8) Platelet Count 293 K/UL (150-450) Mean Platelet Volume 6.8 FL (6.5-10.1) Neutrophils (%) (Auto) 74.6 % (45.0-75.0) Lymphocytes (%) (Auto) 15.2 % (20.0-45.0) L Monocytes (%) (Auto) 6.5 % (1.0-10.0) Eosinophils (%) (Auto) 0.0 % (0.0-3.0) Basophils (%) (Auto) 3.7 % (0.0-2.0) H Sodium Level 140 MMOL/L (136-145) Potassium Level 3.6 MMOL/L (3.5-5.1) Chloride Level 102 MMOL/L (98-107) Carbon Dioxide Level 25 MMOL/L (21-32) Anion Gap 13 mmol/L (5-15) Blood Urea Nitrogen 9 mg/dL (7-18) Creatinine 1.1 MG/DL (0.55-1.30) Estimated Glomerular Filtration Rate > 60 mL/min (>60) Glucose Level 150 MG/DL (74-106) H Calcium Level 9.3 MG/DL (8.5-10.1) Total Bilirubin 0.3 MG/DL (0.2-1.0) Aspartate Amino Transferase (AST) 17 U/L (15-37) Alanine Aminotransferase (ALT) 31 U/L (12-78) Alkaline Phosphatase 82 U/L (46-116) Total Protein 8.9 G/DL (6.4-8.2) H Albumin 4.1 G/DL (3.4-5.0) Globulin 4.8 g/dL Albumin/Globulin Ratio 0.9 (1.0-2.7) L Lipase 84 U/L (73-393) Urine Color Yellow Urine Appearance Clear Urine pH 6 (4.5-8.0) Urine Specific [place] 1.015 (1.005-1.035) Urine Protein 3+ (NEGATIVE) H Urine Glucose (UA) Negative (NEGATIVE) Urine Ketones 3+ (NEGATIVE) H Urine Blood 5+ (NEGATIVE) H Urine Nitrite Negative (NEGATIVE) Urine Bilirubin Negative (NEGATIVE) Urine Urobilinogen Normal MG/DL (0.0-1.0) Urine Leukocyte Esterase 1+ (NEGATIVE) H Urine RBC 15-20 /HPF (0 - 2) H Urine WBC 5-10 /HPF (0 - 2) H Urine Squamous Epithelial Cells Occasional /LPF Urine Bacteria Moderate /HPF (NONE) H Urine HCG, Qualitative Negative (NEGATIVE) Urine Opiates Screen Negative (NEGATIVE) Urine Barbiturates Screen Negative (NEGATIVE) Phencyclidine (PCP) Screen Negative (NEGATIVE) Urine Amphetamines Screen Negative (NEGATIVE) Urine Benzodiazepines Screen Negative (NEGATIVE) Urine Cocaine Screen Negative (NEGATIVE) Urine Marijuana (THC) Screen Positive (NEGATIVE) H Last Vital Signs Date Time Temp Pulse Resp B/P (MAP) Pulse Ox O2 Delivery O2 Flow Rate FiO2 07/25/20 10:06 99.9 77 20 142/81 (101) 97 Room Air Disposition: HOME, SELF-CARE Condition: Improved Scripts Nitrofurantoin Monohyd/M-Cryst* (MACROBID 100 MG*) 100 Mg Capsule 100 MG ORAL EVERY 12 HOURS for 7 Days, #14 CAP Prov: Stewart Walker MD 07/25/20 Famotidine* (Pepcid 20mg tablet*) 20 Mg Tablet 20 MG ORAL DAILY for Gerd, #30 TAB 0 Refills Prov: Stewart Walker MD 07/25/20 Ondansetron Odt* (ZOFRAN ODT*) 4 Mg Tab.rapdis 4 MG BC EVERY 6 HOURS PRN for Nausea & Vomiting, #20 TAB 0 Refills Prov: Stewart Walker MD 07/25/20 Mag Hydrox/Al Hydrox/Simeth (MAALOX MAXIMUM STRENGTH SUSP) 355 Ml Oral.susp 355 ML PO TID, #355 ML Prov: Stewart Walker MD 07/25/20 Stewart Walker MD Jul 25, 2020 10:15
[2020-07-25 10:16] VITALS: BP 142/81
--- NOTE | 2020-07-25 10:16 | NUR ---
ED Nurse Note: Patient from home and walked in due to upper abd pain with N/V/D since yesterday. Patient has history of GERD. No reports of coughing or fever. Pt is AAO x4, ambulatroy with non labored breathing. Dr Walker at the bed side.
--- NOTE | 2020-07-25 10:25 | NUR ---
ED Nurse Note: Collected blood specimen then sent.
[2020-07-25 10:29] LABS: BASOPHILS % (AUTO) 3.7 % (0.0-2.0); HEMATOCRIT 38.1 % (37.0-47.0); HEMOGLOBIN 12.9 G/DL (12.0-16.0); LYMPHOCYTES % (AUTO) 15.2 % (20.0-45.0); MEAN CORPUSCULAR VOLUME 83 FL (80-99); MONOCYTES % (AUTO) 6.5 % (1.0-10.0); NEUTROPHILS % (AUTO) 74.6 % (45.0-75.0); PLATELET COUNT 293 K/UL (150-450); RED CELL DISTRIBUTION WIDTH 11.8 % (11.6-14.8); WHITE BLOOD COUNT 10.8 K/UL (4.8-10.8)
[2020-07-25 10:36] LABS: ANION GAP 13 mmol/L (5-15); BLOOD UREA NITROGEN 9 mg/dL (7-18); CALCIUM 9.3 MG/DL (8.5-10.1); CARBON DIOXIDE 25 MMOL/L (21-32); CHLORIDE 102 MMOL/L (98-107); CREATININE 1.1 MG/DL (0.55-1.30); POTASSIUM 3.6 MMOL/L (3.5-5.1); SODIUM 140 MMOL/L (136-145)
[2020-07-25 10:41] LABS: ALANINE AMINOTRANSFERASE 31 U/L (12-78); ALBUMIN 4.1 G/DL (3.4-5.0); ALBUMIN/GLOBULIN RATIO 0.9 (1.0-2.7); ALKALINE PHOSPHATASE 82 U/L (46-116); ASPARTATE AMINO TRANSFERASE 17 U/L (15-37); BILIRUBIN,TOTAL 0.3 MG/DL (0.2-1.0)
--- NOTE | 2020-07-25 11:01 | NUR ---
ED Nurse Note: Collected urine then sent.
[2020-07-25 11:10] LABS: APPEARANCE,URINE CLEAR; BILIRUBIN, URINE NEGATIVE (NEGATIVE); COLOR,URINE YELLOW; GLUCOSE, URINE (UA) NEGATIVE (NEGATIVE); KETONES,URINE 3+ (NEGATIVE); LEUKOCYTE ESTERASE ,URINE 1+ (NEGATIVE); NITRITE,URINE NEGATIVE (NEGATIVE); PH,URINE 6 (4.5-8.0); PROTEIN,URINE 3+ (NEGATIVE); UROBILINOGEN,URINE NORMAL MG/DL (0.0-1.0)
[2020-07-25] MEDS ORDERED: ONDANSETRON ODT4 MG BC ×3 (11:37→11:50)
[2020-07-25] MEDS ORDERED: MAALOX MAXIMUM355 M1 PO ×3 (11:37→11:50)
[2020-07-25] MEDS ORDERED: FAMOTIDINE20 MG ORAL ×3 (11:37→11:50)
[2020-07-25] MEDS ORDERED: NITROFURANTOIN100 M2 ORAL ×3 (11:38→11:50)
[2020-07-25] MEDS ORDERED: cefTRIAXone 1 GM in NS 55 ML IVPB ONE (11:45)
[2020-07-25 12:02] VITALS: BP 135/86
--- NOTE | 2020-07-25 12:02 | NUR ---
ED Nurse Note: Pt cleared by ERMD for discharge. DC instructions was given and explained to pt and verbalized understanding of teachings. prescription sent electronically to the pharmacy of choice. All medical deviecs such as ID band removed. Pt is AAO x4, ambulatory and left with all personal belongings. P/u by family member.
== END 2020-07-25 12:02 | disposition home or self-care (01) ==
LOC: EMR 10:00
DX: N39.0 Urinary tract infection, site not specified (principal); R11.2 Nausea with vomiting, unspecified; K21.9 Gastro-esophageal reflux disease without esophagitis; Z90.89 Acquired absence of other organs; Z88.0 Allergy status to penicillin; I10 Essential (primary) hypertension
CPT/HCPCS: 36415; 80053; 80307; 81003; 81025; 83690; 85025; 87086; 96361; 96365; 96375; 96376; J0696; J1200; J2405; J2765; J7030; S0028; Z7502; 99284

== ENCOUNTER 2020-11-29 12:37 | Emergency (ER) | payer MEDICAID ==
[~2020-11-29] VITALS: Ht 167.6 cm; Wt 104.3 kg
[~2020-11-29 12:37] MED LIST changes: +NITROFURANTOIN100 M2 ORAL
[2020-11-29] MEDS ORDERED: CYCLOBENZAPRINE10 MG ORAL (12:52)
[2020-11-29] MEDS ORDERED: Haloperidol Lactate 5 MG in D5W 55 ML IVPB ONE (13:00)
--- NOTE | 2020-11-29 13:01 | Emergency Room Report ---
History of Present Illness General Chief Complaint: Abdominal Pain Source: Patient Present Illness HPI A 40-year-old female who presents for increased nausea and vomiting since this morning. Reports having increased diarrhea. Onset at 7 AM. Prior history of appendectomy. Allergies: Coded Allergies: PENICILLINS (Verified Allergy, Unknown, 01/03/19) COVID-19 Screening Contact w/high risk pt: No Recent Travel to affected area: No Experienced COVID-19 symptoms?: No COVID-19 Testing performed FOREST EXAMINER: No COVID-19 Screening: Negative COVID-19 COVID-19 Testing Source: nasal Patient History Past Medical History: see triage record Now: No Reviewed Nursing Documentation: PMH: Agreed; PSxH: Agreed Nursing Documentation-PMH Past Medical History: No History, Except For Hx Hypertension: Yes Hx Cancer: No Hx Gastrointestinal Problems: Yes Hx Neurological Problems: No Physical Exam Vital Signs Date Time Temp Pulse Resp B/P (MAP) Pulse Ox O2 Delivery O2 Flow Rate FiO2 11/29/20 12:45 97.9 73 20 179/90 (119) 99 Room Air Sp02 EP Interpretation: reviewed, normal General Appearance: normal inspection, well appearing, no apparent distress, alert Head: atraumatic ENT: normal ENT inspection, hearing grossly normal, normal voice Neck: normal inspection, full range of motion, supple, no bony tend Respiratory: normal inspection, lungs clear, normal breath sounds, no respiratory distress, no retraction, no wheezing Cardiovascular #1: regular rate, rhythm, no edema Gastrointestinal: normal inspection, normal bowel sounds, non tender, soft, no guarding, no hernia Genitourinary: no CVA tenderness Musculoskeletal: normal inspection, back normal, normal range of motion Neurologic: alert, responsive, speech normal, normal inspection Psychiatric: normal inspection, judgement/insight normal, mood/affect normal Medical Decision Making Diagnostic Impression: Primary Impression: Cyclic vomiting syndrome ER Course Patient presents for increased nausea and vomiting. Differential diagnosis include was not limited to cyclic vomiting, gastritis, bowel obstruction, gastroenteritis among others. Patient is had multiple episodes of nausea vomiting in the past and has had previous visits for similar symptoms.She was g iven IV fluids as well as IV Haldol with complete resolution of her symptoms. She was able to tolerate oral fluids. Patient does report having some recent diarrhea. Patient symptoms may be related to marijuana hyperemesis. Patient was advised to discontinue marijuana use. She was advised to return if worse. This medical record is generated with [employer] machine compositor software. There may be some machine compositor discrepancies related to use of this software Labs Test 11/29/20 13:05 White Blood Count 9.5 K/UL (4.8-10.8) Red Blood Count 4.14 M/UL (4.20-5.40) Hemoglobin 13.1 G/DL (12.0-16.0) Hematocrit 36.4 % (37.0-47.0) Mean Corpuscular Volume 88 FL (80-99) Mean Corpuscular Hemoglobin 31.7 PG (27.0-31.0) Mean Corpuscular Hemoglobin Concent 36.0 G/DL (32.0-36.0) Red Cell Distribution Width 12.3 % (11.6-14.8) Platelet Count 198 K/UL (150-450) Mean Platelet Volume 8.6 FL (6.5-10.1) Neutrophils (%) (Auto) 70.1 % (45.0-75.0) Lymphocytes (%) (Auto) 24.8 % (20.0-45.0) Monocytes (%) (Auto) 4.3 % (1.0-10.0) Eosinophils (%) (Auto) 0.1 % (0.0-3.0) Basophils (%) (Auto) 0.7 % (0.0-2.0) Urine Color Pale yellow Urine Appearance Slightly cloudy Urine pH 6 (4.5-8.0) Urine Specific [place] 1.015 (1.005-1.035) Urine Protein 2+ (NEGATIVE) Urine Glucose (UA) Negative (NEGATIVE) Urine Ketones 3+ (NEGATIVE) Urine Blood 5+ (NEGATIVE) Urine Nitrite Negative (NEGATIVE) Urine Bilirubin Negative (NEGATIVE) Urine Urobilinogen Normal MG/DL (0.0-1.0) Urine Leukocyte Esterase 1+ (NEGATIVE) Urine RBC Tntc /HPF (0 - 2) Urine WBC 5-10 /HPF (0 - 2) Urine Squamous Epithelial Cells Many /LPF (NONE/OCC) Urine Bacteria Moderate /HPF (NONE) Urine HCG, Qualitative Negative (NEGATIVE) Sodium Level 141 MMOL/L (136-145) Potassium Level 4.5 MMOL/L (3.5-5.1) Chloride Level 105 MMOL/L (98-107) Carbon Dioxide Level 20 MMOL/L (21-32) Anion Gap 16 mmol/L (5-15) Blood Urea Nitrogen 10 mg/dL (7-18) Creatinine 0.8 MG/DL (0.55-1.30) Estimat Glomerular Filtration Rate > 60 mL/min (>60) Glucose Level 131 MG/DL (74-106) Calcium Level 9.6 MG/DL (8.5-10.1) Total Bilirubin 0.4 MG/DL (0.2-1.0) Aspartate Amino Transf (AST/SGOT) 24 U/L (15-37) Alanine Aminotransferase (ALT/SGPT) 25 U/L (12-78) Alkaline Phosphatase 92 U/L (46-116) Total Protein 9.2 G/DL (6.4-8.2) Albumin 4.2 G/DL (3.4-5.0) Globulin 5.0 g/dL Albumin/Globulin Ratio 0.8 (1.0-2.7) Lipase 120 U/L (73-393) Urine Opiates Screen Negative (NEGATIVE) Urine Barbiturates Screen Negative (NEGATIVE) Phencyclidine (PCP) Screen Negative (NEGATIVE) Urine Amphetamines Screen Negative (NEGATIVE) Urine Benzodiazepines Screen Negative (NEGATIVE) Urine Cocaine Screen Negative (NEGATIVE) Urine Marijuana (THC) Screen Positive (NEGATIVE) Last Vital Signs Date Time Temp Pulse Resp B/P (MAP) Pulse Ox O2 Delivery O2 Flow Rate FiO2 11/29/20 12:45 97.9 73 20 179/90 (119) 99 Room Air Status: improved Disposition: HOME, SELF-CARE Condition: Stable Scripts Ondansetron Odt* (ZOFRAN ODT*) 8 Mg Tab.rapdis 8 MG ORAL Q6H PRN for Nausea & Vomiting, #30 TAB Prov: Ren Clark MD 11/29/20 Dicyclomine Hcl* (DICYCLOMINE HCL*) 10 Mg Capsule 10 MG ORAL QID, #20 CAP Prov: Ren Clark MD 11/29/20 Ren Clark MD Nov 29, 2020 13:01
[2020-11-29 13:24] VITALS: BP 118/78
[2020-11-29 13:25] LABS: APPEARANCE,URINE SLIGHTLY CLOUDY; BILIRUBIN, URINE NEGATIVE (NEGATIVE); COLOR,URINE PALE YELLOW; GLUCOSE, URINE (UA) NEGATIVE (NEGATIVE); KETONES,URINE 3+ (NEGATIVE); LEUKOCYTE ESTERASE ,URINE 1+ (NEGATIVE); NITRITE,URINE NEGATIVE (NEGATIVE); PH,URINE 6 (4.5-8.0); PROTEIN,URINE 2+ (NEGATIVE); UROBILINOGEN,URINE NORMAL MG/DL (0.0-1.0)
[2020-11-29 13:27] LABS: BASOPHILS % (AUTO) 0.7 % (0.0-2.0); EOSINOPHILS % (AUTO) 0.1 % (0.0-3.0); HEMATOCRIT 36.4 % (37.0-47.0); HEMOGLOBIN 13.1 G/DL (12.0-16.0); LYMPHOCYTES % (AUTO) 24.8 % (20.0-45.0); MEAN CORPUSCULAR VOLUME 88 FL (80-99); MONOCYTES % (AUTO) 4.3 % (1.0-10.0); NEUTROPHILS % (AUTO) 70.1 % (45.0-75.0); PLATELET COUNT 198 K/UL (150-450); RED BLOOD COUNT 4.14 M/UL (4.20-5.40); RED CELL DISTRIBUTION WIDTH 12.3 % (11.6-14.8); WHITE BLOOD COUNT 9.5 K/UL (4.8-10.8)
[2020-11-29 13:35] LABS: ANION GAP 16 mmol/L (5-15); BLOOD UREA NITROGEN 10 mg/dL (7-18); CALCIUM 9.6 MG/DL (8.5-10.1); CARBON DIOXIDE 20 MMOL/L (21-32); CHLORIDE 105 MMOL/L (98-107); CREATININE 0.8 MG/DL (0.55-1.30); POTASSIUM 4.5 MMOL/L (3.5-5.1); SODIUM 141 MMOL/L (136-145)
[2020-11-29 13:39] LABS: ALANINE AMINOTRANSFERASE 25 U/L (12-78); ALBUMIN 4.2 G/DL (3.4-5.0); ALBUMIN/GLOBULIN RATIO 0.8 (1.0-2.7); ALKALINE PHOSPHATASE 92 U/L (46-116); ASPARTATE AMINO TRANSFERASE 24 U/L (15-37); BILIRUBIN,TOTAL 0.4 MG/DL (0.2-1.0)
[2020-11-29] MEDS ORDERED: ZOFRAN ODT8 MG ORAL (13:46)
[2020-11-29] MEDS ORDERED: DICYCLOMINE HCL10 MG ORAL (13:46)
--- NOTE | 2020-11-29 14:15 | NUR ---
ED Nurse Note: patient able to tolerate fluid intake. No reports of N/V at this time.
[2020-11-29 14:20] VITALS: BP 138/90
== END 2020-11-29 14:20 | disposition home or self-care (01) ==
LOC: EMR 13:17
DX: R11.15 Cyclical vomiting syndrome unrelated to migraine (principal); I10 Essential (primary) hypertension; F12.10 Cannabis abuse, uncomplicated; Z88.0 Allergy status to penicillin
CPT/HCPCS: 36415; 80053; 80307; 81003; 81025; 83690; 85025; 87086; 96361; 96374; 96375; J1630; J2405; J7030; S0028; Z7502; 99284